=== PATIENT | male | born 1945 | race Caucasian/White ===

== ENCOUNTER 2021-02-06 11:53 | Inpatient (IN) | payer MEDICARE, MEDICAID ==
[2021-02-06] MEDS ORDERED: Dexamethasone 10 MG/ML SDV IVPUSH ONE (12:05)
--- NOTE | 2021-02-06 12:16 | EDM.PDOC ---
ED HPI GENERAL MEDICAL PROBLEM - General Chief Complaint: Respiratory Problem Stated Complaint: SOB Time Seen by Provider: 02/06/21 12:00 Source of Information: Reports: Patient, Family History Limitations: Reports: Respiratory Distress - History of Present Illness INITIAL COMMENTS - FREE TEXT/NARRATIVE: Patient is a 75-year-old male previous smoker presents today for low oxygen. He has a pulse ox at home and went down to the mid 50s. Placed on a nonrebreather is now greater than 95%. His cousins at the bedside and states he is with complaint of shortness of breath for the past few months and his oxygen levels progressively begin lower over the past month. Patient denies any chest pain cough fever chills just a low oxygen. He is also had a weight loss of over 30 pounds this past year. - Related Data Allergies Allergy/AdvReac Type Severity Reaction Status Date / Time No Known Allergies Allergy Verified 02/06/21 12:30 Home Meds: Home Meds Doxazosin Mesylate [Cardura] 4 mg PO DAILY 02/06/21 [History] acetaZOLAMIDE [Acetazolamide] 500 mg PO DAILY 02/06/21 [History] amLODIPine [Norvasc] 10 mg PO DAILY 02/06/21 [History] atorvaSTATin [Lipitor] 10 mg PO BEDTIME 02/06/21 [History] ED ROS GENERAL - Review of Systems Review Of Systems: See Below Constitutional: Reports: No Symptoms HEENT: Reports: No Symptoms Respiratory: Reports: Shortness of Breath Cardiovascular: Reports: No Symptoms Endocrine: Reports: No Symptoms GI/Abdominal: Reports: No Symptoms : Reports: No Symptoms Musculoskeletal: Reports: No Symptoms Skin: Reports: No Symptoms Neurological: Reports: No Symptoms Psychiatric: Reports: No Symptoms Hematologic/Lymphatic: Reports: No Symptoms Immunologic: Reports: No Symptoms ED EXAM, GENERAL - Physical Exam Exam: See Below Exam Limited By: No Limitations General Appearance: Alert, WD/WN, No Apparent Distress Nose: Normal Inspection Throat/Mouth: Normal Inspection Head: Atraumatic, Normocephalic Neck: Normal Inspection Respiratory/Chest: No Respiratory Distress, Lungs Clear, Normal Breath Sounds, No Accessory Muscle Use Cardiovascular: Normal Peripheral Pulses, Regular Rate, Rhythm GI/Abdominal: Normal Bowel Sounds, Soft, Non-Tender Back Exam: Normal Inspection, Full Range of Motion Extremities: Normal Inspection, Normal Range of Motion, Non-Tender Neurological: Alert, Oriented, CN II-XII Intact, Normal Cognition Psychiatric: Normal Affect, Normal Mood Skin Exam: No Rash #1 Interpretation EKG Date: 02/06/21 Time: 12:45 Rhythm: NSR Rate (Beats/Min): 67 ST-T: Normal Course - Vital Signs Last Recorded V/S: Last Vital Signs Temp 97.3 F 02/06/21 11:55 Pulse 66 02/06/21 13:35 Resp 24 H 02/06/21 13:35 BP 118/62 02/06/21 13:35 Pulse Ox 96 02/06/21 13:35 - Orders/Labs/Meds Orders: Active Orders 24 hr Category Date Time Status Admission Status [Patient Status] [ADT] Stat ADT 02/06/21 13:59 Active CULTURE BLOOD [BC] Stat Lab 02/06/21 12:45 Received CULTURE BLOOD [BC] Stat Lab 02/06/21 13:02 Received Azithromycin [Zithromax] 500 mg Med 02/06/21 14:00 Active Sodium Chloride 0.9% [Normal Saline AdvBag] 250 ml IV ONETIME cefTRIAXone [Rocephin in Dextrose,Iso-Osm 1 GM/50 ML] 1 Med 02/06/21 13:56 Active gm Premix Bag 1 bag IV ONETIME Blood Culture x2 Reflex Set [OM.PC] Stat Oth 02/06/21 12:05 Ordered Medication Orders Ceftriaxone Sodium/Dextrose 1 (gm/ Premix) 50 mls @ 100 mls/hr IV ONETIME ONE Stop: 02/06/21 14:25 Azithromycin 500 mg/ Sodium (Chloride) 250 mls @ 250 mls/hr IV ONETIME [facility] Labs: Laboratory Tests 02/06/21 02/06/21 02/06/21 Range/Units 12:05 12:05 12:05 WBC 11.27 H (4.0-11.0) K/uL RBC 4.91 (4.50-5.90) M/uL Hgb 14.9 (13.0-17.0) g/dL Hct 45.5 (38.0-50.0) % MCV 92.7 (80.0-98.0) fL MCH 30.3 (27.0-32.0) pg MCHC 32.7 (31.0-37.0) g/dL RDW Std Deviation 56.0 (28.0-62.0) fl RDW Coeff of Shivani 16 H (11.0-15.0) % Plt Count 236 (150-400) K/uL MPV 10.00 (7.40-12.00) fL Neut % (Auto) 80.7 H (48.0-80.0) % Lymph % (Auto) 8.2 L (16.0-40.0) % [place] % (Auto) 10.5 (0.0-15.0) % Eos % (Auto) 0.3 (0.0-7.0) % Baso % (Auto) 0.3 (0.0-1.5) % Neut # (Auto) 9.1 H (1.4-5.7) K/uL Lymph # (Auto) 0.9 (0.6-2.4) K/uL [place] # (Auto) 1.2 H (0.0-0.8) K/uL Eos # (Auto) 0.0 (0.0-0.7) K/uL Baso # (Auto) 0.0 (0.0-0.1) K/uL Nucleated RBC % 0.0 /100WBC Nucleated RBCs # 0 K/uL Sodium 143 (136-148) mmol/L Potassium 4.3 (3.5-5.1) mmol/L Chloride 107 (98-107) mmol/L Carbon Dioxide 24.5 (21.0-32.0) mmol/L BUN 24 H (7.0-18.0) mg/dL Creatinine 1.1 (0.8-1.3) mg/dL Est Cr Clr Drug Dosing TNP Estimated GFR (MDRD) > 60.0 ml/min Glucose 119 H (74-106) mg/dL Calcium 8.9 (8.5-10.1) mg/dL Phosphorus 3.9 (2.6-4.7) mg/dL Magnesium 2.2 (1.8-2.4) mg/dL Total Bilirubin 0.7 (0.2-1.0) mg/dL AST 16 (15-37) IU/L ALT 15 (14-63) IU/L Alkaline Phosphatase 68 (46-116) U/L Creatine Kinase 79 (26-308) U/L Total Protein 7.5 (6.4-8.2) g/dL Albumin 3.5 (3.4-5.0) g/dL Globulin 4.0 (2.6-4.0) g/dL Albumin/Globulin Ratio 0.9 (0.9-1.6) Lipase 146 (73-393) U/L SARS-CoV-2 RNA (SHEILA) NEGATIVE (NEGATIVE) Meds: Medications Generic Name Dose Route Start Last Admin Trade Name Freq PRN Reason Stop Dose Admin Ceftriaxone Sodium/Dextrose 1 50 mls @ 100 mls/hr 02/06/21 13:56 gm/ Premix IV 02/06/21 14:25 ONETIME ONE Azithromycin 500 mg/ Sodium 250 mls @ 250 mls/hr 02/06/21 14:00 Chloride IV ONETIME JAY Discontinued Medications Generic Name Dose Route Start Last Admin Trade Name Freq PRN Reason Stop Dose Admin Dexamethasone 10 mg 02/06/21 12:05 02/06/21 12:34 Dexamethasone 10 Mg/Ml Sdv IVPUSH 02/06/21 12:06 10 mg ONETIME ONE Administration - Re-Assessments/Exams Free Text/Narrative Re-Assessment/Exam: 02/06/21 14:00 Patient x-ray shows bilateral infiltrates patient is Covid negative we will treat this as a pneumonia. Patient was on a nonrebreather now on nasal cannula still satting 96% patient will be admitted to the hospital to the medical floor Departure - Departure Time of Disposition: 14:01 Disposition: Home, Self-Care 01 Condition: Good Clinical Impression: Hypoxia, Pneumonia - Discharge Information *PRESCRIPTION DRUG MONITORING PROGRAM REVIEWED*: Not Applicable *COPY OF PRESCRIPTION DRUG MONITORING REPORT IN PATIENT [place]: Not Applicable Referrals: Yoshi Bardales MD [Primary Care Provider] - Forms: ED Department Discharge Sepsis Event Note (ED) - Focused Exam Vital Signs: Vital Signs Temp Pulse Resp BP Pulse Ox 02/06/21 13:35 66 24 H 118/62 96 02/06/21 12:05 98 02/06/21 11:55 97.3 F 92 28 H 108/73 54 L - My Orders Last 24 Hours: My Active Orders 02/06/21 12:05 Blood Culture x2 Reflex Set [OM.PC] Stat 02/06/21 12:45 CULTURE BLOOD [BC] Stat 02/06/21 13:02 CULTURE BLOOD [BC] Stat 02/06/21 13:56 cefTRIAXone [Rocephin in Dextrose,Iso-Osm 1 GM/50 ML] 1 gm Premix Bag 1 bag IV ONETIME 02/06/21 13:59 Admission Status [Patient Status] [ADT] Stat 02/06/21 14:00 Azithromycin [Zithromax] 500 mg Sodium Chloride 0.9% [Normal Saline AdvBag] 250 ml IV ONETIME - Assessment/Plan Last 24 Hours: My Active Orders 02/06/21 12:05 Blood Culture x2 Reflex Set [OM.PC] Stat 02/06/21 12:45 CULTURE BLOOD [BC] Stat 02/06/21 13:02 CULTURE BLOOD [BC] Stat 02/06/21 13:56 cefTRIAXone [Rocephin in Dextrose,Iso-Osm 1 GM/50 ML] 1 gm Premix Bag 1 bag IV ONETIME 02/06/21 13:59 Admission Status [Patient Status] [ADT] Stat 02/06/21 14:00 Azithromycin [Zithromax] 500 mg Sodium Chloride 0.9% [Normal Saline AdvBag] 250 ml IV ONETIME Plan: Patient is a 75-year-old male presents today for hypoxia. Patient on a nonrebreather now satting 95% and feels better. Will obtain x-ray labs EKG and Covid swab.
[2021-02-06 12:46] LABS: BLOOD UREA NITROGEN,BUN 24 mg/dL (7.0-18.0); CARBON DIOXIDE,CO2 24.5 mmol/L (21.0-32.0); CHLORIDE,CL 107 mmol/L (98-107); GLUCOSE RANDOM 119 mg/dL (74-106); LIPASE 146 U/L (73-393); POTASSIUM,K 4.3 mmol/L (3.5-5.1); SODIUM,NA 143 mmol/L (136-148)
--- NOTE | 2021-02-06 13:49 | CR ---
INDICATION: Hypoxia. 75-year-old male. TECHNIQUE: Chest radiograph 1 view COMPARISON: None FINDINGS: Cardiovascular and mediastinum: Heart size and mediastinal contours within normal limits. Lungs and pleural spaces: Small bilateral pleural effusions, left greater than right. There are patchy ground-glass and interstitial opacities, localized to the right and left lower lung zones. No definite central vascular congestion. There may be trace fluid in the right minor fissure. Bones and soft tissues: No significant findings. IMPRESSION: 1. Trace bilateral pleural effusions, left greater than right. 2. Patchy pulmonary opacities at the bilateral lung bases, left greater than right. Findings suspicious for bibasilar infiltrates and atelectasis, including COVID-19 viral pneumonitis. Dictated by Esequiel Harvey MD @ 02/06/2021 1:48:06 PM (Electronically Signed)
[2021-02-06] MEDS ORDERED: cefTRIAXone 1 GM in Premix Bag 1 BAG IV ONE (13:56)
[2021-02-06] MEDS ORDERED: Azithromycin 500 MG in Sodium Chloride 0.9% 250 ML IV SCH (14:00)
[2021-02-06] MEDS ORDERED: Albuterol/Ipratropium 3.0-0.5 MG/3 ML Neb Soln ONE (15:07)
[2021-02-06] MEDS ORDERED: Albuterol/Ipratropium 3.0-0.5 MG/3 ML Neb Soln NEB ONE (15:45)
--- NOTE | 2021-02-06 16:48 | PCM.HP.2 ---
H&P History of Present Illness - General Date of Service: 02/06/21 Admit Problem/Dx: Admission Diagnosis/Problem Admission Diagnosis/Problem Hypoxia Source of Information: Family, Provider History Limitations: Reports: Altered Mental Status - History of Present Illness Initial Comments - Free Text/Narative: 02/06/21 75 year old male brought in by visiting cousin with hx of worsening resp symptoms starting 4-5 months ago and becoming severe over past few days . sats checked and in 50-77% range with severe caba and sob noted . he is weak and unable to walk currently and cousin is not sure how long he has been bad. sees Dr Mcintosh but no pulm meds at home and no inhalers or puffers. ex heavy smoker quit 11 years ago . no known cardiac hx but very incomplete. has been covid and flu vaccinated and covid test neg. in e.r. no hx of hypotension known previously . he is losing weight and going downhill in retrospect with 30 lbs weight loss. patient answers yes /no questions and denies pain or chest pains,syncope or vomiting . 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 sats improved with n.c but only to 80s, bipap placed and abg pending. p.e. shows rr 24 ,poor color but not cyanotic currently. cap refil poor 5 sec. lungs diffuse distant wheezes boht lung eid. cor rrr no s3/4 no murmurs. abd bs normal . extremities: 2plus edema bilaterally. responds to name but speech unclear. chest xray diffuse interstitial findings . lab trop neg. covid neg. no influenza done. cbc normal.cmp normal. assess: pneumonia with underlying interstitial findings on xray needs ct scan after stabilization. severe hypoxia and little hx to go on . prob rt heart failure or edema form other causes but nutriton okay by labs and hx. 30 lbs weight loss// no known hx of t.b . plan : sepsis protocol started. rocephin given in e.r but will go with zosyn and vanco. imm against covid and flu by hx. rt heart failure check nt bnp repeat trop and check d dimer for other possible causes . patient is serious and family made aware and to consider intubation if not stabilizing . place jones for accurate i/os . repeat covid screen. boh Onset of Symptoms: Reports: Gradual Duration of Symptoms: Reports: Day(s): Severity: Moderate (co2 80 on nasal canal) Associated Symptoms: Reports: Confusion, Loss of Appetite, Malaise, Shortness of Breath - Related Data Allergies/Adverse Reactions: Allergies Allergy/AdvReac Type Severity Reaction Status Date / Time No Known Allergies Allergy Verified 02/06/21 12:30 Home Medications: Home Meds Doxazosin Mesylate [Cardura] 4 mg PO DAILY 02/06/21 [History] acetaZOLAMIDE [Acetazolamide] 500 mg PO DAILY 02/06/21 [History] amLODIPine [Norvasc] 10 mg PO DAILY 02/06/21 [History] atorvaSTATin [Lipitor] 10 mg PO BEDTIME 02/06/21 [History] Past Medical History HEENT History: Reports: None Cardiovascular History: Reports: High Cholesterol, Hypertension Respiratory History: Reports: None Gastrointestinal History: Reports: None Genitourinary History: Reports: None Musculoskeletal History: Reports: None Neurological History: Reports: None Psychiatric History: Reports: None Endocrine/Metabolic History: Reports: None Insulin Pump Model and Manager Ent: None Hematologic History: Reports: None Immunologic History: Reports: None Oncologic (Cancer) History: Reports: None Dermatologic History: Reports: None - Infectious Disease History Infectious Disease History: Reports: None - Past Surgical History Head Surgeries/Procedures: Reports: None Social & Family History - Tobacco Use Tobacco Use Comment: stop 10days ago - Caffeine Use Caffeine Use: Reports: None - Recreational Drug Use Recreational Drug Use: No H&P Review of Systems - Review of Systems: Review Of Systems: See Below General: Reports: Malaise, Weakness, Decreased Appetite HEENT: Reports: No Symptoms, Other (glaucoma) Pulmonary: Reports: Shortness of Breath Gastrointestinal: Reports: No Symptoms Genitourinary: Reports: No Symptoms Musculoskeletal: Reports: No Symptoms Skin: Reports: No Symptoms Psychiatric: Reports: No Symptoms Neurological: Reports: No Symptoms, Confusion Hematologic/Lymphatic: Reports: No Symptoms Exam - Exam Exam: See Below - Vital Signs Vital Signs: Last Vital Signs Temp 36.2 C 02/06/21 14:19 Pulse 65 02/06/21 14:19 Resp 24 H 02/06/21 14:19 BP 116/61 02/06/21 14:19 Pulse Ox 93 L 02/06/21 14:19 - Exam Quality Assessment: Supplemental Oxygen General: Lethargic, Obtunded HEENT: PERRLA, Hearing Intact, Mucosa Moist & [place], Nares Patent, Normal Nasal Septum, Posterior Pharynx Clear, Conjunctiva Clear, EOMI, EACs Clear, TMs Clear Neck: Supple, Trachea Midline, 2 Lungs: Clear to Auscultation, Normal Respiratory Effort, Decreased Breath Sounds, Wheezing Cardiovascular: Regular Rate, Regular Rhythm GI/Abdominal Exam: Normal Bowel Sounds, Soft, Non-Tender, No Organomegaly, No Distention, No Abnormal Bruit, No Mass, Pelvis Stable (Male) Exam: Normal Inspection Rectal (Males) Exam: Deferred. No: Normal Exam, Normal Rectal Tone, Prostate Normal Back Exam: Normal Inspection, Full Range of Motion, NT Extremities: Other (2 plus edema bilateral no calve tenderness ) - Patient Data Lab Results Last 24 hrs: Laboratory Results - last 24 hr 02/06/21 02/06/21 02/06/21 Range/Units 12:05 12:05 12:05 WBC 11.27 H (4.0-11.0) K/uL RBC 4.91 (4.50-5.90) M/uL Hgb 14.9 (13.0-17.0) g/dL Hct 45.5 (38.0-50.0) % MCV 92.7 (80.0-98.0) fL MCH 30.3 (27.0-32.0) pg MCHC 32.7 (31.0-37.0) g/dL RDW Std Deviation 56.0 (28.0-62.0) fl RDW Coeff of Shivani 16 H (11.0-15.0) % Plt Count 236 (150-400) K/uL MPV 10.00 (7.40-12.00) fL Neut % (Auto) 80.7 H (48.0-80.0) % Lymph % (Auto) 8.2 L (16.0-40.0) % [place] % (Auto) 10.5 (0.0-15.0) % Eos % (Auto) 0.3 (0.0-7.0) % Baso % (Auto) 0.3 (0.0-1.5) % Neut # (Auto) 9.1 H (1.4-5.7) K/uL Lymph # (Auto) 0.9 (0.6-2.4) K/uL [place] # (Auto) 1.2 H (0.0-0.8) K/uL Eos # (Auto) 0.0 (0.0-0.7) K/uL Baso # (Auto) 0.0 (0.0-0.1) K/uL Nucleated RBC % 0.0 /100WBC Nucleated RBCs # 0 K/uL Sodium 143 (136-148) mmol/L Potassium 4.3 (3.5-5.1) mmol/L Chloride 107 (98-107) mmol/L Carbon Dioxide 24.5 (21.0-32.0) mmol/L BUN 24 H (7.0-18.0) mg/dL Creatinine 1.1 (0.8-1.3) mg/dL Est Cr Clr Drug Dosing TNP Estimated GFR (MDRD) > 60.0 ml/min Glucose 119 H (74-106) mg/dL Calcium 8.9 (8.5-10.1) mg/dL Phosphorus 3.9 (2.6-4.7) mg/dL Magnesium 2.2 (1.8-2.4) mg/dL Total Bilirubin 0.7 (0.2-1.0) mg/dL AST 16 (15-37) IU/L ALT 15 (14-63) IU/L Alkaline Phosphatase 68 (46-116) U/L Creatine Kinase 79 (26-308) U/L B-Natriuretic Peptide (<100) PG/ML Total Protein 7.5 (6.4-8.2) g/dL Albumin 3.5 (3.4-5.0) g/dL Globulin 4.0 (2.6-4.0) g/dL Albumin/Globulin Ratio 0.9 (0.9-1.6) Lipase 146 (73-393) U/L SARS-CoV-2 RNA (SHEILA) NEGATIVE (NEGATIVE) 02/06/21 Range/Units 12:05 WBC (4.0-11.0) K/uL RBC (4.50-5.90) M/uL Hgb (13.0-17.0) g/dL Hct (38.0-50.0) % MCV (80.0-98.0) fL MCH (27.0-32.0) pg MCHC (31.0-37.0) g/dL RDW Std Deviation (28.0-62.0) fl RDW Coeff of Shivani (11.0-15.0) % Plt Count (150-400) K/uL MPV (7.40-12.00) fL Neut % (Auto) (48.0-80.0) % Lymph % (Auto) (16.0-40.0) % [place] % (Auto) (0.0-15.0) % Eos % (Auto) (0.0-7.0) % Baso % (Auto) (0.0-1.5) % Neut # (Auto) (1.4-5.7) K/uL Lymph # (Auto) (0.6-2.4) K/uL [place] # (Auto) (0.0-0.8) K/uL Eos # (Auto) (0.0-0.7) K/uL Baso # (Auto) (0.0-0.1) K/uL Nucleated RBC % /100WBC Nucleated RBCs # K/uL Sodium (136-148) mmol/L Potassium (3.5-5.1) mmol/L Chloride (98-107) mmol/L Carbon Dioxide (21.0-32.0) mmol/L BUN (7.0-18.0) mg/dL Creatinine (0.8-1.3) mg/dL Est Cr Clr Drug Dosing Estimated GFR (MDRD) ml/min Glucose (74-106) mg/dL Calcium (8.5-10.1) mg/dL Phosphorus (2.6-4.7) mg/dL Magnesium (1.8-2.4) mg/dL Total Bilirubin (0.2-1.0) mg/dL AST (15-37) IU/L ALT (14-63) IU/L Alkaline Phosphatase (46-116) U/L Creatine Kinase (26-308) U/L B-Natriuretic Peptide 439 H (<100) PG/ML Total Protein (6.4-8.2) g/dL Albumin (3.4-5.0) g/dL Globulin (2.6-4.0) g/dL Albumin/Globulin Ratio (0.9-1.6) Lipase (73-393) U/L SARS-CoV-2 RNA (SHEILA) (NEGATIVE) Result Diagrams: 02/06/21 12:05 02/06/21 12:05 Sepsis Event Note - Evaluation Sepsis Screening Result: No Definite Risk Current Stage of Sepsis: Sepsis Possible Source of Sepsis: Pulmonary - Focused Exam Sepsis Event Note Statement: Focused Sepsis Exam Completed Vital Signs: Vital Signs Temp Pulse Resp BP Pulse Ox 02/06/21 14:19 36.2 C 65 24 H 116/61 93 L 02/06/21 13:35 66 24 H 118/62 96 02/06/21 12:05 98 02/06/21 11:55 36.3 C 92 28 H 108/73 54 L Respiratory Effort Without Exertion: Hyperpnea, Shallow Heart Sounds: Distant Capillary Refill, Detail: Greater than (>) 2 Seconds Pulse Description: 2+ Normal Skin Exam (Focused Sepsis): Normal Turgor Date Exam was Performed: 02/06/21 Time Exam was Performed: 15:50 - Bedside Monitoring CVP Measures: Less than 8 Bedside Ultrasound Performed: No Fluid Bolus Goal: not yet. Date Bedside Monitoring was Performed: 02/06/21 Time Bedside Monitoring was Performed: 16:54 - Problem List (1) CHF (congestive heart failure), NYHA class III SNOMED Code(s): 659906959, 790115820 ICD Code: I50.9 - HEART FAILURE, UNSPECIFIED Status: Acute Priority: Medium Current Visit: Yes Onset Date: ~02/06/21 Qualifiers: Congestive heart failure type: systolic Congestive heart failure chronicity: acute on chronic Qualified Code(s): I50.23 - Acute on chronic systolic (congestive) heart failure Problem List Initiated/Reviewed/Updated: Yes Orders Last 24hrs: Active Orders 24 hr Category Date Time Status Admission Status [Patient Status] [ADT] Stat ADT 02/06/21 13:59 Active RT Aerosol Therapy [RC] ASDIRECTED Care 02/06/21 15:46 Active Head wo Cont [CT] Stat Exams 02/06/21 16:06 Taken BLOOD GAS ARTERIAL [BG] Stat Lab 02/06/21 16:06 Ordered CULTURE BLOOD [BC] Stat Lab 02/06/21 12:45 Received CULTURE BLOOD [BC] Stat Lab 02/06/21 13:02 Received Azithromycin [Zithromax] 500 mg Med 02/06/21 14:00 Active Sodium Chloride 0.9% [Normal Saline AdvBag] 250 ml IV ONETIME Blood Culture x2 Reflex Set [OM.PC] Stat Oth 02/06/21 12:05 Ordered Medication Orders Azithromycin 500 mg/ Sodium (Chloride) 250 mls @ 250 mls/hr IV ONETIME JAY Assessment/Plan Comment:: 02/06/21 75 year old male brought in by visiting cousin with hx of worsening resp symptoms starting 4-5 months ago and becoming severe over past few days . sats checked and in 50-77% range with severe caba and sob noted . he is weak and unable to walk currently and cousin is not sure how long he has been bad. sees Dr Mcintosh but no pulm meds at home and no inhalers or puffers. ex heavy smoker quit 11 years ago . no known cardiac hx but very incomplete. has been covid and flu vaccinated and covid test neg. in e.r. no hx of hypotension known previously . he is losing weight and going downhill in retrospect with 30 lbs w eight loss. patient answers yes /no questions and denies pain or chest pains,syncope or vomiting . 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 sats improved with n.c but only to 80s, bipap placed and abg pending. p.e. shows rr 24 ,poor color but not cyanotic currently. cap refil poor 5 sec. lungs diffuse distant wheezes boht lung eid. cor rrr no s3/4 no murmurs. abd bs normal . extremities: 2plus edema bilaterally. responds to name but speech unclear. chest xray diffuse interstitial findings . lab trop neg. covid neg. no influenza done. cbc normal.cmp normal. assess: pneumonia with underlying interstitial findings on xray needs ct scan after stabilization. severe hypoxia and little hx to go on . prob rt heart failure or edema form other causes but nutriton okay by labs and hx. 30 lbs weight loss// no known hx of t.b . plan : sepsis protocol started. rocephin given in e.r but will go with zosyn and vanco. imm against covid and flu by hx. rt heart failure check nt bnp repeat trop and check d dimer for other possible causes . patient is serious and family made aware and to consider intubation if not stabilizing . place jones for accurate i/os . repeat covid screen. boh - Mortality Measure Prognosis:: Poor
--- NOTE | 2021-02-06 17:19 | CT ---
INDICATION: Altered mental status, on BiPAP. COMPARISON: None. TECHNIQUE: CT of the head without IV contrast. Coronal and sagittal reconstructions are provided. FINDINGS: No intracranial hemorrhage, mass effect, or evidence of acute infarct. No midline shift. No abnormal extra-axial fluid collections. Normal caliber ventricular system. Mild patchy low attenuation within the white matter likely due to chronic small vessel ischemic disease. Orbits and extraocular muscles are symmetric. The paranasal sinuses and mastoid air cells are clear. No acute fracture identified. Soft tissues are unremarkable. IMPRESSION: : 1. No acute intracranial findings. 2. Mild chronic small vessel ischemic disease. Please note that all CT scans at this facility use dose modulation, iterative reconstruction, and/or weight-based dosing when appropriate to reduce radiation dose to as low as reasonably achievable. Dictated by Christy Peterson MD @ 02/06/2021 5:17:43 PM (Electronically Signed)
[2021-02-06] MEDS: VANCOmycin 1.5 GM/300 ML 1.5 GM in Premix Bag 1 BAG IV SCH (18:04)
[2021-02-06] MEDS: LORazepam 2 MG/ML SDV IVPUSH PRN ×2 (18:05→22:48)
[2021-02-06] MEDS: Ampicillin/Sulbactam Na 3 GM in Sodium Chloride 0.9% 100 ML IV SCH (18:05)
--- NOTE | 2021-02-06 21:35 | PCM.PR.CLI ---
Central Line Insertion - Central Line Insertion Site: internal jugular (R) Prep: CDC/MBT Guidelines, Sterile Drapes, Chlorhexidine Lumen: triple Gauge: 7Fr Local Anesthesia - Lidocaine (Xylocaine): 0.5% Plain Local Anesthetic Volume: 1cc Ultrasound guided: Yes CL Complications: No Secured with suture: Yes Post placement confirmation: CXR, all ports aspirated, all ports flushed CXR post-procedure: no pneumothorax, no hemothorax Dressing applied: by provider, chlorhexidine disc used, op-site dressing
[2021-02-06] MEDS: Enoxaparin 40 MG/0.4 ML Syringe SUBCUT SCH (21:54)
--- NOTE | 2021-02-06 22:05 | CR ---
INDICATION: Central line confirmation. TECHNIQUE: Chest 1 view. COMPARISON: Chest radiograph 02/06/2021. FINDINGS: Placement of a right IJ CVC with tip in the upper SVC. This could be advanced approximately 11 cm. Stable small bilateral pleural effusions and bibasilar atelectasis. Increased patchy and interstitial opacities in the lower lungs bilaterally. No pneumothorax. Normal heart size. The bones are unremarkable. IMPRESSION: 1. Right IJ CVC with tip in the upper SVC. This could be advanced approximately 11 cm. 2. Stable small bilateral pleural effusions. 3. Increased patchy and interstitial opacities in the lower lungs bilaterally. Dictated by Christy Peterson MD @ 02/06/2021 10:04:27 PM (Electronically Signed)
--- NOTE | 2021-02-06 22:39 | PCM.SN.2 ---
- Free Text/Narrative Note: 02/06/21 doing some what poorer overall , b.p decreased but responded to stimulation with central line placment . huypoxia severe with sats lower 90s and no air movement. confusion continues but then he started improving around 9 oclock and sats now 90-92 repeat abg still shows co2 69 but clinically a little better. on zosyn// vanco . discussed with sister , Neda closest relative . who has medical poa and changed code status to no cpr and no intubation but to be aggressive trying to reverse course. boh Time Documentation - Time Based Documentation Total Time Spent on the Date of the Encounter (Minutes): 90 Time Includes the Following: Time Spent [id number] with the Patient, Communication with Other Health [facility], Counseling/Education, Eletronic Documentation Time Excludes: Clinical Staff Time - Counseling Documentation Non Time Based Counseled: Patient, Family Counseling Topic(s): Diagnostic Results, Prognosis, Patient and Family Educat, Impressions, Risks and Benefits of Tx Options - Encounter Timing Total Time of Encounter (Minutes): 90
--- NOTE | 2021-02-06 23:14 | PN ---
THC Physician - Brief Progress RndsZXHHJOQIU59/26/2021 22:38[facility] khadra TonyaROSA MARIA - JOSHUA (CHIP) - [facility]N [facility] ELSYChristen of Service 02/06/2021 22:38HPI/Events of No te Brief eICU Admit [id number] yom with hx of ongoing SOBPresents with Acute resp failureO/E Seen on ca meraVSS, NADDVT Prophylaxis: lovenoxGI Prophylaxis: n/aIssuesAcute Hypercapneic RespiratoryPNA ? ILD / COPD baselineOn BiPAPCheck ABGOn abxPt is DNR / DNICase reviewed with bedside teamCall with bhavya Neri followInterventions Major-Respiratory failure - evaluation and management
[2021-02-07] MEDS: Ampicillin/Sulbactam Na 3 GM in Sodium Chloride 0.9% 100 ML IV SCH ×3 (02:05→17:53)
[2021-02-07] MEDS: Albuterol/Ipratropium 3.0-0.5 MG/3 ML Neb Soln NEB PRN (06:24)
[2021-02-07 07:48] LABS: BLOOD UREA NITROGEN,BUN 29 mg/dL (7.0-18.0); CARBON DIOXIDE,CO2 24.2 mmol/L (21.0-32.0); CHLORIDE,CL 109 mmol/L (98-107); GLUCOSE RANDOM 124 mg/dL (74-106); SODIUM,NA 143 mmol/L (136-148)
[2021-02-07] MEDS: Enoxaparin 40 MG/0.4 ML Syringe SUBCUT SCH ×2 (09:31→21:27)
[2021-02-07] MEDS: Furosemide 20 MG/2 ML VIAL IVPUSH SCH (13:00)
--- NOTE | 2021-02-07 13:12 | PCM.PN ---
- General Info Date of Service: 02/07/21 Admission Dx/Problem (Free Text): Admission Diagnosis/Problem Admission Diagnosis/Problem Hypoxia/chf/pneumonia Subjective Update: 02/07/21 afebrile /vss/ stable night with improved resp status on bipap// increased peep 14 and fio2 at 70 % / rate 20 min. improved tidal volume 650/ rr 20-32. see abg results 1 and 2. sleeping and ao x2 not answering questions but responds to name . lungs : prolonged wheezes but good air movement . very distant but better ( than yest.) cor. rrr abd benign. neuro : joshi . responds to [pain and voice. lab repeat inf/covid/rsv screen pending. . cbc elavated 17 . hgn dropped mildly . 14.6 plat good. chest xray: small bilateral effusions a with chf and vasc markings though out lung eid. repeat trop pending. telemetry unifcal pvcs seen occasionally . assess: chf with pulm edema acute on chronic suspected. rt sided findings most prominant with pulm edema nd bilatteral pleural effusions. hx of chronic symptoms and copd/emphesema likely . rule out covid neg and immunized for covid and flu. improved with high dose steriods and nebs and bipap with 70% fio2. co2 retention seen likely acute coupled with metabolic acidosis and -b.e. of 8 initially . repeat abg as day goes on . needs echo and repeat trop and bnp . hypotension: better. has good urine output and given lasix this am . bnp 1440. possible pneumonia but not called by radiology . on .s anti biotics . elevated blood sugars on steroids and monitoring for now check a1c . family updated and code status changed to no code and no intubation. plan cont same and get ct scan lungs if stable for ct scan (rule out p.e. and evaluate pneumoia and chf.) boh Functional Status: Reports: Pain Controlled, Urinating - Review of Systems General: Reports: No Symptoms, Fatigue HEENT: Reports: No Symptoms Pulmonary: Reports: No Symptoms, Shortness of Breath, Wheezing Cardiovascular: Reports: No Symptoms, Dyspnea on Exertion, Edema Gastrointestinal: Reports: No Symptoms Genitourinary: Reports: No Symptoms Musculoskeletal: Reports: No Symptoms Skin: Reports: No Symptoms Neurological: Reports: No Symptoms Psychiatric: Reports: No Symptoms, Confusion - Patient Data Vitals - Most Recent: Last Vital Signs Temp 36.5 C 02/07/21 04:00 Pulse 67 02/06/21 19:00 Resp 12 02/07/21 06:58 BP 98/49 L 02/07/21 06:58 Pulse Ox 95 02/07/21 06:58 Weight - Most Recent: 88.2 kg I&O - Last 24 Hours: Intake & Output 02/06/21 02/07/21 02/07/21 23:59 07:59 15:59 Intake Total 10 Output Total 650 Balance -640 Imaging Impressions - Last 24 Hours: chf and emphesema and bilateral pleural effusions. Lab Results Last 24 Hours: Laboratory Results - last 24 hr 02/06/21 02/06/21 02/06/21 Range/Units 12:05 12:05 12:05 WBC (4.0-11.0) K/uL RBC (4.50-5.90) M/uL Hgb (13.0-17.0) g/dL Hct (38.0-50.0) % MCV (80.0-98.0) fL MCH (27.0-32.0) pg MCHC (31.0-37.0) g/dL RDW Std Deviation (28.0-62.0) fl RDW Coeff of Shivani (11.0-15.0) % Plt Count (150-400) K/uL MPV (7.40-12.00) fL Neut % (Auto) (48.0-80.0) % Lymph % (Auto) (16.0-40.0) % [place] % (Auto) (0.0-15.0) % Eos % (Auto) (0.0-7.0) % Baso % (Auto) (0.0-1.5) % Neut # (Auto) (1.4-5.7) K/uL Lymph # (Auto) (0.6-2.4) K/uL [place] # (Auto) (0.0-0.8) K/uL Eos # (Auto) (0.0-0.7) K/uL Baso # (Auto) (0.0-0.1) K/uL Nucleated RBC % /100WBC Nucleated RBCs # K/uL D-Dimer, Quantitative (0.0-0.50) mg/L FEU ABG pH (7.35-7.45) ABG pCO2 (35-45) mmHG ABG pO2 (80-105) mmHG ABG HCO3 (22-26) mEq/L ABG Total CO2 (23-27) mmol/L ABG Base Excess (-2.0-3.0) Sodium 143 (136-148) mmol/L Potassium 4.3 (3.5-5.1) mmol/L Chloride 107 (98-107) mmol/L Carbon Dioxide 24.5 (21.0-32.0) mmol/L BUN 24 H (7.0-18.0) mg/dL Creatinine 1.1 (0.8-1.3) mg/dL Est Cr Clr Drug Dosing TNP Estimated GFR (MDRD) > 60.0 ml/min Glucose 119 H (74-106) mg/dL Lactic Acid (0.4-2.0) mmol/L Calcium 8.9 (8.5-10.1) mg/dL Phosphorus 3.9 (2.6-4.7) mg/dL Magnesium 2.2 (1.8-2.4) mg/dL Total Bilirubin 0.7 (0.2-1.0) mg/dL AST 16 (15-37) IU/L ALT 15 (14-63) IU/L Alkaline Phosphatase 68 (46-116) U/L Creatine Kinase 79 (26-308) U/L C-Reactive Protein (0.00-0.90) mg/dL B-Natriuretic Peptide 439 H (<100) PG/ML Total Protein 7.5 (6.4-8.2) g/dL Albumin 3.5 (3.4-5.0) g/dL Globulin 4.0 (2.6-4.0) g/dL Albumin/Globulin Ratio 0.9 (0.9-1.6) Lipase 146 (73-393) U/L Urine Color Urine Appearance Urine pH (5.0-8.0) Ur Specific Roxana (1.001-1.035) Urine Protein (NEGATIVE) mg/dL Urine Glucose (UA) (NEGATIVE) mg/dL Urine Ketones (NEGATIVE) mg/dL Urine Occult Blood (NEGATIVE) Urine Nitrite (NEGATIVE) Urine Bilirubin (NEGATIVE) Urine Urobilinogen (<2.0) EU/dL Ur Leukocyte Esterase (NEGATIVE) SARS-CoV-2 RNA (SHEILA) NEGATIVE (NEGATIVE) 02/06/21 02/06/21 02/06/21 Range/Units 16:40 16:50 17:40 WBC (4.0-11.0) K/uL RBC (4.50-5.90) M/uL Hgb (13.0-17.0) g/dL Hct (38.0-50.0) % MCV (80.0-98.0) fL MCH (27.0-32.0) pg MCHC (31.0-37.0) g/dL RDW Std Deviation (28.0-62.0) fl RDW Coeff of Shivani (11.0-15.0) % Plt Count (150-400) K/uL MPV (7.40-12.00) fL Neut % (Auto) (48.0-80.0) % Lymph % (Auto) (16.0-40.0) % [place] % (Auto) (0.0-15.0) % Eos % (Auto) (0.0-7.0) % Baso % (Auto) (0.0-1.5) % Neut # (Auto) (1.4-5.7) K/uL Lymph # (Auto) (0.6-2.4) K/uL [place] # (Auto) (0.0-0.8) K/uL Eos # (Auto) (0.0-0.7) K/uL Baso # (Auto) (0.0-0.1) K/uL Nucleated RBC % /100WBC Nucleated RBCs # K/uL D-Dimer, Quantitative (0.0-0.50) mg/L FEU ABG pH 7.03 L* (7.35-7.45) ABG pCO2 88 H (35-45) mmHG ABG pO2 104 (80-105) mmHG ABG HCO3 23 (22-26) mEq/L ABG Total CO2 22.4 L (23-27) mmol/L ABG Base Excess -10.1 L (-2.0-3.0) Sodium (136-148) mmol/L Potassium (3.5-5.1) mmol/L Chloride (98-107) mmol/L Carbon Dioxide (21.0-32.0) mmol/L BUN (7.0-18.0) mg/dL Creatinine (0.8-1.3) mg/dL Est Cr Clr Drug Dosing Estimated GFR (MDRD) ml/min Glucose (74-106) mg/dL Lactic Acid 1.4 (0.4-2.0) mmol/L Calcium (8.5-10.1) mg/dL Phosphorus (2.6-4.7) mg/dL Magnesium (1.8-2.4) mg/dL Total Bilirubin (0.2-1.0) mg/dL AST (15-37) IU/L ALT (14-63) IU/L Alkaline Phosphatase (46-116) U/L Creatine Kinase (26-308) U/L C-Reactive Protein (0.00-0.90) mg/dL B-Natriuretic Peptide (<100) PG/ML Total Protein (6.4-8.2) g/dL Albumin (3.4-5.0) g/dL Globulin (2.6-4.0) g/dL Albumin/Globulin Ratio (0.9-1.6) Lipase (73-393) U/L Urine Color YELLOW Urine Appearance CLEAR Urine pH 6.0 (5.0-8.0) Ur Specific Roxana >= 1.030 (1.001-1.035) Urine Protein TRACE H (NEGATIVE) mg/dL Urine Glucose (UA) NEGATIVE (NEGATIVE) mg/dL Urine Ketones TRACE H (NEGATIVE) mg/dL Urine Occult Blood NEGATIVE (NEGATIVE) Urine Nitrite NEGATIVE (NEGATIVE) Urine Bilirubin NEGATIVE (NEGATIVE) Urine Urobilinogen 1.0 (<2.0) EU/dL Ur Leukocyte Esterase NEGATIVE (NEGATIVE) SARS-CoV-2 RNA (SHEILA) (NEGATIVE) 02/06/21 02/07/21 02/07/21 Range/Units 18:50 00:05 05:28 WBC (4.0-11.0) K/uL RBC (4.50-5.90) M/uL Hgb (13.0-17.0) g/dL Hct (38.0-50.0) % MCV (80.0-98.0) fL MCH (27.0-32.0) pg MCHC (31.0-37.0) g/dL RDW Std Deviation (28.0-62.0) fl RDW Coeff of Shivani (11.0-15.0) % Plt Count (150-400) K/uL MPV (7.40-12.00) fL Neut % (Auto) (48.0-80.0) % Lymph % (Auto) (16.0-40.0) % [place] % (Auto) (0.0-15.0) % Eos % (Auto) (0.0-7.0) % Baso % (Auto) (0.0-1.5) % Neut # (Auto) (1.4-5.7) K/uL Lymph # (Auto) (0.6-2.4) K/uL [place] # (Auto) (0.0-0.8) K/uL Eos # (Auto) (0.0-0.7) K/uL Baso # (Auto) (0.0-0.1) K/uL Nucleated RBC % /100WBC Nucleated RBCs # K/uL D-Dimer, Quantitative 4.26 H (0.0-0.50) mg/L FEU ABG pH 7.12 L* 7.21 L (7.35-7.45) ABG pCO2 69 H 53 H (35-45) mmHG ABG pO2 74 L 62 L (80-105) mmHG ABG HCO3 22 21 L (22-26) mEq/L ABG Total CO2 21.2 L 19.8 L (23-27) mmol/L ABG Base Excess -8.5 L -7.1 L (-2.0-3.0) Sodium (136-148) mmol/L Potassium (3.5-5.1) mmol/L Chloride (98-107) mmol/L Carbon Dioxide (21.0-32.0) mmol/L BUN (7.0-18.0) mg/dL Creatinine (0.8-1.3) mg/dL Est Cr Clr Drug Dosing Estimated GFR (MDRD) ml/min Glucose (74-106) mg/dL Lactic Acid (0.4-2.0) mmol/L Calcium (8.5-10.1) mg/dL Phosphorus (2.6-4.7) mg/dL Magnesium (1.8-2.4) mg/dL Total Bilirubin (0.2-1.0) mg/dL AST (15-37) IU/L ALT (14-63) IU/L Alkaline Phosphatase (46-116) U/L Creatine Kinase (26-308) U/L C-Reactive Protein (0.00-0.90) mg/dL B-Natriuretic Peptide (<100) PG/ML Total Protein (6.4-8.2) g/dL Albumin (3.4-5.0) g/dL Globulin (2.6-4.0) g/dL Albumin/Globulin Ratio (0.9-1.6) Lipase (73-393) U/L Urine Color Urine Appearance Urine pH (5.0-8.0) Ur Specific Roxana (1.001-1.035) Urine Protein (NEGATIVE) mg/dL Urine Glucose (UA) (NEGATIVE) mg/dL Urine Ketones (NEGATIVE) mg/dL Urine Occult Blood (NEGATIVE) Urine Nitrite (NEGATIVE) Urine Bilirubin (NEGATIVE) Urine Urobilinogen (<2.0) EU/dL Ur Leukocyte Esterase (NEGATIVE) SARS-CoV-2 RNA (SHEILA) (NEGATIVE) 02/07/21 02/07/21 Range/Units 05:28 05:28 WBC 15.58 H (4.0-11.0) K/uL RBC 4.56 (4.50-5.90) M/uL Hgb 13.6 (13.0-17.0) g/dL Hct 43.3 (38.0-50.0) % MCV 95.0 (80.0-98.0) fL MCH 29.8 (27.0-32.0) pg MCHC 31.4 (31.0-37.0) g/dL RDW Std Deviation 56.9 (28.0-62.0) fl RDW Coeff of Shivani 17 H (11.0-15.0) % Plt Count 209 (150-400) K/uL MPV 10.60 (7.40-12.00) fL Neut % (Auto) 94.1 H (48.0-80.0) % Lymph % (Auto) 2.0 L (16.0-40.0) % [place] % (Auto) 3.8 (0.0-15.0) % Eos % (Auto) 0.0 (0.0-7.0) % Baso % (Auto) 0.1 (0.0-1.5) % Neut # (Auto) 14.7 H (1.4-5.7) K/uL Lymph # (Auto) 0.3 L (0.6-2.4) K/uL [place] # (Auto) 0.6 (0.0-0.8) K/uL Eos # (Auto) 0.0 (0.0-0.7) K/uL Baso # (Auto) 0.0 (0.0-0.1) K/uL Nucleated RBC % 0.0 /100WBC Nucleated RBCs # 0 K/uL D-Dimer, Quantitative (0.0-0.50) mg/L FEU ABG pH (7.35-7.45) ABG pCO2 (35-45) mmHG ABG pO2 (80-105) mmHG ABG HCO3 (22-26) mEq/L ABG Total CO2 (23-27) mmol/L ABG Base Excess (-2.0-3.0) Sodium 143 (136-148) mmol/L Potassium 4.0 (3.5-5.1) mmol/L Chloride 109 H (98-107) mmol/L Carbon Dioxide 24.2 (21.0-32.0) mmol/L BUN 29 H (7.0-18.0) mg/dL Creatinine 1.0 (0.8-1.3) mg/dL Est Cr Clr Drug Dosing 63.88 Estimated GFR (MDRD) > 60.0 ml/min Glucose 124 H (74-106) mg/dL Lactic Acid (0.4-2.0) mmol/L Calcium 7.6 L (8.5-10.1) mg/dL Phosphorus (2.6-4.7) mg/dL Magnesium (1.8-2.4) mg/dL Total Bilirubin 0.4 (0.2-1.0) mg/dL AST 12 L (15-37) IU/L ALT 14 (14-63) IU/L Alkaline Phosphatase 55 (46-116) U/L Creatine Kinase (26-308) U/L C-Reactive Protein <0.20 (0.00-0.90) mg/dL B-Natriuretic Peptide (<100) PG/ML Total Protein 6.4 (6.4-8.2) g/dL Albumin 2.9 L (3.4-5.0) g/dL Globulin 3.5 (2.6-4.0) g/dL Albumin/Globulin Ratio 0.8 L (0.9-1.6) Lipase (73-393) U/L Urine Color Urine Appearance Urine pH (5.0-8.0) Ur Specific Roxana (1.001-1.035) Urine Protein (NEGATIVE) mg/dL Urine Glucose (UA) (NEGATIVE) mg/dL Urine Ketones (NEGATIVE) mg/dL Urine Occult Blood (NEGATIVE) Urine Nitrite (NEGATIVE) Urine Bilirubin (NEGATIVE) Urine Urobilinogen (<2.0) EU/dL Ur Leukocyte Esterase (NEGATIVE) SARS-CoV-2 RNA (SHEILA) (NEGATIVE) Med Orders - Current: Current Medications Albuterol/Ipratropium (Albuterol/Ipratropium 3.0-0.5 Mg/3 Ml Neb Soln) 3 ml NEB Q4HRRT PRN PRN Reason: Shortness of Breath Last Admin: 02/07/21 06:24 Dose: 3 ml Documented by: Enoxaparin Sodium (Enoxaparin 40 Mg/0.4 Ml Syringe) 40 mg SUBCUT Q12HR JAY Last Admin: 02/07/21 09:31 Dose: 40 mg Documented by: Furosemide (Furosemide 40 Mg/4 Ml Vial) 20 mg IVPUSH DAILY [facility] Azithromycin 500 mg/ Sodium (Chloride) 250 mls @ 250 mls/hr IV ONETIME JAY Ampicillin Sodium/Sulbactam (Sodium 3 gm/ Sodium Chloride) 100 mls @ 200 mls/hr IV Q8H [facility] Last Admin: 02/07/21 09:31 Dose: 200 mls/hr Documented by: Vancomycin HCl 1.5 gm/ Premix 300 mls @ 200 mls/hr IV Q24H [facility] Last Admin: 02/06/21 18:04 Dose: 200 mls/hr Documented by: Norepinephrine Bitartrate (Norepinephr-0.9% Nacl 4 Mg/250) 4 mg in 250 mls @ 7.5 mls/hr IV TITRATE JAY; Protocol Azithromycin 500 mg/ Sodium (Chloride) 250 mls @ 250 mls/hr IV Q24H [facility] Stop: 02/10/21 17:59 Lorazepam (Lorazepam 2 Mg/Ml Sdv) 2 mg IVPUSH Q2H PRN PRN Reason: Agitation Last Admin: 02/06/21 22:48 Dose: 2 mg Documented by: Vancomycin HCl (Pharmacy To Dose - Vancomycin) 1 dose .XX ASDIRECTED JAY Discontinued Medications Albuterol/Ipratropium (Albuterol/Ipratropium 3.0-0.5 Mg/3 Ml Neb Soln) Confirm Administered Dose 3 ml .ROUTE .STK-MED ONE Stop: 02/06/21 15:08 Last Admin: 02/06/21 15:47 Dose: Not Given Documented by: Albuterol/Ipratropium (Albuterol/Ipratropium 3.0-0.5 Mg/3 Ml Neb Soln) 3 ml NEB ONETIME ONE Stop: 02/06/21 15:46 Last Admin: 02/06/21 15:47 Dose: 3 ml Documented by: Dexamethasone (Dexamethasone 10 Mg/Ml Sdv) 10 mg IVPUSH ONETIME ONE Stop: 02/06/21 12:06 Last Admin: 02/06/21 12:34 Dose: 10 mg Documented by: Ceftriaxone Sodium/Dextrose 1 (gm/ Premix) 50 mls @ 100 mls/hr IV ONETIME ONE Stop: 02/06/21 14:25 Last Admin: 02/06/21 14:18 Dose: 100 mls/hr Documented by: - Exam Quality Assessment: Supplemental Oxygen, Central Line/PICC, DVT Prophylaxis Central Line Total Time: 0Days 7Hours Urinary Catheter Total Time: 0Days 11Hours General: Alert, Oriented HEENT: Pupils Equal, Pupils Reactive, EOMI, Mucous Membr. Moist/[place] Neck: Supple Lungs: Clear to Auscultation, Decreased Breath Sounds, Wheezing. No: Normal Respiratory Effort Cardiovascular: Regular Rate, Regular Rhythm, Tachycardia GI/Abdominal Exam: Normal Bowel Sounds, Soft, Non-Tender, No Organomegaly, No Distention, No Abnormal Bruit, No Mass, Pelvis Stable (Male) Exam: No Hernia, Normal Inspection, Normal Prostate, Circumcised Back Exam: Normal Inspection, Full Range of Motion Extremities: Normal Inspection, Normal Range of Motion, Non-Tender, No Pedal Edema, Normal Capillary Refill Skin: Warm, Dry, Intact Wound/Incisions: Healing Well Neurological: No New Focal Deficit Psy/Mental Status: Alert, Normal Affect, Normal Mood - Patient Data Lab Results Last 24 hrs: Laboratory Results - last 24 hr 02/06/21 02/06/21 02/06/21 Range/Units 12:05 12:05 12:05 WBC (4.0-11.0) K/uL RBC (4.50-5.90) M/uL Hgb (13.0-17.0) g/dL Hct (38.0-50.0) % MCV (80.0-98.0) fL MCH (27.0-32.0) pg MCHC (31.0-37.0) g/dL RDW Std Deviation (28.0-62.0) fl RDW Coeff of Shivani (11.0-15.0) % Plt Count (150-400) K/uL MPV (7.40-12.00) fL Neut % (Auto) (48.0-80.0) % Lymph % (Auto) (16.0-40.0) % [place] % (Auto) (0.0-15.0) % Eos % (Auto) (0.0-7.0) % Baso % (Auto) (0.0-1.5) % Neut # (Auto) (1.4-5.7) K/uL Lymph # (Auto) (0.6-2.4) K/uL [place] # (Auto) (0.0-0.8) K/uL Eos # (Auto) (0.0-0.7) K/uL Baso # (Auto) (0.0-0.1) K/uL Nucleated RBC % /100WBC Nucleated RBCs # K/uL D-Dimer, Quantitative (0.0-0.50) mg/L FEU ABG pH (7.35-7.45) ABG pCO2 (35-45) mmHG ABG pO2 (80-105) mmHG ABG HCO3 (22-26) mEq/L ABG Total CO2 (23-27) mmol/L ABG Base Excess (-2.0-3.0) Sodium 143 (136-148) mmol/L Potassium 4.3 (3.5-5.1) mmol/L Chloride 107 (98-107) mmol/L Carbon Dioxide 24.5 (21.0-32.0) mmol/L BUN 24 H (7.0-18.0) mg/dL Creatinine 1.1 (0.8-1.3) mg/dL Est Cr Clr Drug Dosing TNP Estimated GFR (MDRD) > 60.0 ml/min Glucose 119 H (74-106) mg/dL Lactic Acid (0.4-2.0) mmol/L Calcium 8.9 (8.5-10.1) mg/dL Phosphorus 3.9 (2.6-4.7) mg/dL Magnesium 2.2 (1.8-2.4) mg/dL Total Bilirubin 0.7 (0.2-1.0) mg/dL AST 16 (15-37) IU/L ALT 15 (14-63) IU/L Alkaline Phosphatase 68 (46-116) U/L Creatine Kinase 79 (26-308) U/L C-Reactive Protein (0.00-0.90) mg/dL B-Natriuretic Peptide 439 H (<100) PG/ML Total Protein 7.5 (6.4-8.2) g/dL Albumin 3.5 (3.4-5.0) g/dL Globulin 4.0 (2.6-4.0) g/dL Albumin/Globulin Ratio 0.9 (0.9-1.6) Lipase 146 (73-393) U/L Urine Color Urine Appearance Urine pH (5.0-8.0) Ur Specific Roxana (1.001-1.035) Urine Protein (NEGATIVE) mg/dL Urine Glucose (UA) (NEGATIVE) mg/dL Urine Ketones (NEGATIVE) mg/dL Urine Occult Blood (NEGATIVE) Urine Nitrite (NEGATIVE) Urine Bilirubin (NEGATIVE) Urine Urobilinogen (<2.0) EU/dL Ur Leukocyte Esterase (NEGATIVE) SARS-CoV-2 RNA (SHEILA) NEGATIVE (NEGATIVE) 02/06/21 02/06/21 02/06/21 Range/Units 16:40 16:50 17:40 WBC (4.0-11.0) K/uL RBC (4.50-5.90) M/uL Hgb (13.0-17.0) g/dL Hct (38.0-50.0) % MCV (80.0-98.0) fL MCH (27.0-32.0) pg MCHC (31.0-37.0) g/dL RDW Std Deviation (28.0-62.0) fl RDW Coeff of Shivani (11.0-15.0) % Plt Count (150-400) K/uL MPV (7.40-12.00) fL Neut % (Auto) (48.0-80.0) % Lymph % (Auto) (16.0-40.0) % [place] % (Auto) (0.0-15.0) % Eos % (Auto) (0.0-7.0) % Baso % (Auto) (0.0-1.5) % Neut # (Auto) (1.4-5.7) K/uL Lymph # (Auto) (0.6-2.4) K/uL [place] # (Auto) (0.0-0.8) K/uL Eos # (Auto) (0.0-0.7) K/uL Baso # (Auto) (0.0-0.1) K/uL Nucleated RBC % /100WBC Nucleated RBCs # K/uL D-Dimer, Quantitative (0.0-0.50) mg/L FEU ABG pH 7.03 L* (7.35-7.45) ABG pCO2 88 H (35-45) mmHG ABG pO2 104 (80-105) mmHG ABG HCO3 23 (22-26) mEq/L ABG Total CO2 22.4 L (23-27) mmol/L ABG Base Excess -10.1 L (-2.0-3.0) Sodium (136-148) mmol/L Potassium (3.5-5.1) mmol/L Chloride (98-107) mmol/L Carbon Dioxide (21.0-32.0) mmol/L BUN (7.0-18.0) mg/dL Creatinine (0.8-1.3) mg/dL Est Cr Clr Drug Dosing Estimated GFR (MDRD) ml/min Glucose (74-106) mg/dL Lactic Acid 1.4 (0.4-2.0) mmol/L Calcium (8.5-10.1) mg/dL Phosphorus (2.6-4.7) mg/dL Magnesium (1.8-2.4) mg/dL Total Bilirubin (0.2-1.0) mg/dL AST (15-37) IU/L ALT (14-63) IU/L Alkaline Phosphatase (46-116) U/L Creatine Kinase (26-308) U/L C-Reactive Protein (0.00-0.90) mg/dL B-Natriuretic Peptide (<100) PG/ML Total Protein (6.4-8.2) g/dL Albumin (3.4-5.0) g/dL Globulin (2.6-4.0) g/dL Albumin/Globulin Ratio (0.9-1.6) Lipase (73-393) U/L Urine Color YELLOW Urine Appearance CLEAR Urine pH 6.0 (5.0-8.0) Ur Specific [place]oxana >= 1.030 (1.001-1.035) Urine Protein TRACE H (NEGATIVE) mg/dL Urine Glucose (UA) NEGATIVE (NEGATIVE) mg/dL Urine Ketones TRACE H (NEGATIVE) mg/dL Urine Occult Blood NEGATIVE (NEGATIVE) Urine Nitrite NEGATIVE (NEGATIVE) Urine Bilirubin NEGATIVE (NEGATIVE) Urine Urobilinogen 1.0 (<2.0) EU/dL Ur Leukocyte Esterase NEGATIVE (NEGATIVE) SARS-CoV-2 RNA (SHEILA) (NEGATIVE) 02/06/21 02/07/21 02/07/21 Range/Units 18:50 00:05 05:28 WBC (4.0-11.0) K/uL RBC (4.50-5.90) M/uL Hgb (13.0-17.0) g/dL Hct (38.0-50.0) % MCV (80.0-98.0) fL MCH (27.0-32.0) pg MCHC (31.0-37.0) g/dL RDW Std Deviation (28.0-62.0) fl RDW Coeff of Shivani (11.0-15.0) % Plt Count (150-400) K/uL MPV (7.40-12.00) fL Neut % (Auto) (48.0-80.0) % Lymph % (Auto) (16.0-40.0) % [place] % (Auto) (0.0-15.0) % Eos % (Auto) (0.0-7.0) % Baso % (Auto) (0.0-1.5) % Neut # (Auto) (1.4-5.7) K/uL Lymph # (Auto) (0.6-2.4) K/uL [place] # (Auto) (0.0-0.8) K/uL Eos # (Auto) (0.0-0.7) K/uL Baso # (Auto) (0.0-0.1) K/uL Nucleated RBC % /100WBC Nucleated RBCs # K/uL D-Dimer, Quantitative 4.26 H (0.0-0.50) mg/L FEU ABG pH 7.12 L* 7.21 L (7.35-7.45) ABG pCO2 69 H 53 H (35-45) mmHG ABG pO2 74 L 62 L (80-105) mmHG ABG HCO3 22 21 L (22-26) mEq/L ABG Total CO2 21.2 L 19.8 L (23-27) mmol/L ABG Base Excess -8.5 L -7.1 L (-2.0-3.0) Sodium (136-148) mmol/L Potassium (3.5-5.1) mmol/L Chloride (98-107) mmol/L Carbon Dioxide (21.0-32.0) mmol/L BUN (7.0-18.0) mg/dL Creatinine (0.8-1.3) mg/dL Est Cr Clr Drug Dosing Estimated GFR (MDRD) ml/min Glucose (74-106) mg/dL Lactic Acid (0.4-2.0) mmol/L Calcium (8.5-10.1) mg/dL Phosphorus (2.6-4.7) mg/dL Magnesium (1.8-2.4) mg/dL Total Bilirubin (0.2-1.0) mg/dL AST (15-37) IU/L ALT (14-63) IU/L Alkaline Phosphatase (46-116) U/L Creatine Kinase (26-308) U/L C-Reactive Protein (0.00-0.90) mg/dL B-Natriuretic Peptide (<100) PG/ML Total Protein (6.4-8.2) g/dL Albumin (3.4-5.0) g/dL Globulin (2.6-4.0) g/dL Albumin/Globulin Ratio (0.9-1.6) Lipase (73-393) U/L Urine Color Urine Appearance Urine pH (5.0-8.0) Ur Specific Rox[place] (1.001-1.035) Urine Protein (NEGATIVE) mg/dL Urine Glucose (UA) (NEGATIVE) mg/dL Urine Ketones (NEGATIVE) mg/dL Urine Occult Blood (NEGATIVE) Urine Nitrite (NEGATIVE) Urine Bilirubin (NEGATIVE) Urine Urobilinogen (<2.0) EU/dL Ur Leukocyte Esterase (NEGATIVE) SARS-CoV-2 RNA (SHEILA) (NEGATIVE) 02/07/21 02/07/21 Range/Units 05:28 05:28 WBC 15.58 H (4.0-11.0) K/uL RBC 4.56 (4.50-5.90) M/uL Hgb 13.6 (13.0-17.0) g/dL Hct 43.3 (38.0-50.0) % MCV 95.0 (80.0-98.0) fL MCH 29.8 (27.0-32.0) pg MCHC 31.4 (31.0-37.0) g/dL RDW Std Deviation 56.9 (28.0-62.0) fl RDW Coeff of Shivani 17 H (11.0-15.0) % Plt Count 209 (150-400) K/uL MPV 10.60 (7.40-12.00) fL Neut % (Auto) 94.1 H (48.0-80.0) % Lymph % (Auto) 2.0 L (16.0-40.0) % [place] % (Auto) 3.8 (0.0-15.0) % Eos % (Auto) 0.0 (0.0-7.0) % Baso % (Auto) 0.1 (0.0-1.5) % Neut # (Auto) 14.7 H (1.4-5.7) K/uL Lymph # (Auto) 0.3 L (0.6-2.4) K/uL [place] # (Auto) 0.6 (0.0-0.8) K/uL Eos # (Auto) 0.0 (0.0-0.7) K/uL Baso # (Auto) 0.0 (0.0-0.1) K/uL Nucleated RBC % 0.0 /100WBC Nucleated RBCs # 0 K/uL D-Dimer, Quantitative (0.0-0.50) mg/L FEU ABG pH (7.35-7.45) ABG pCO2 (35-45) mmHG ABG pO2 (80-105) mmHG ABG HCO3 (22-26) mEq/L ABG Total CO2 (23-27) mmol/L ABG Base Excess (-2.0-3.0) Sodium 143 (136-148) mmol/L Potassium 4.0 (3.5-5.1) mmol/L Chloride 109 H (98-107) mmol/L Carbon Dioxide 24.2 (21.0-32.0) mmol/L BUN 29 H (7.0-18.0) mg/dL Creatinine 1.0 (0.8-1.3) mg/dL Est Cr Clr Drug Dosing 63.88 Estimated GFR (MDRD) > 60.0 ml/min Glucose 124 H (74-106) mg/dL Lactic Acid (0.4-2.0) mmol/L Calcium 7.6 L (8.5-10.1) mg/dL Phosphorus (2.6-4.7) mg/dL Magnesium (1.8-2.4) mg/dL Total Bilirubin 0.4 (0.2-1.0) mg/dL AST 12 L (15-37) IU/L ALT 14 (14-63) IU/L Alkaline Phosphatase 55 (46-116) U/L Creatine Kinase (26-308) U/L C-Reactive Protein <0.20 (0.00-0.90) mg/dL B-Natriuretic Peptide (<100) PG/ML Total Protein 6.4 (6.4-8.2) g/dL Albumin 2.9 L (3.4-5.0) g/dL Globulin 3.5 (2.6-4.0) g/dL Albumin/Globulin Ratio 0.8 L (0.9-1.6) Lipase (73-393) U/L Urine Color Urine Appearance Urine pH (5.0-8.0) Ur Specific Rox[place] (1.001-1.035) Urine Protein (NEGATIVE) mg/dL Urine Glucose (UA) (NEGATIVE) mg/dL Urine Ketones (NEGATIVE) mg/dL Urine Occult Blood (NEGATIVE) Urine Nitrite (NEGATIVE) Urine Bilirubin (NEGATIVE) Urine Urobilinogen (<2.0) EU/dL Ur Leukocyte Esterase (NEGATIVE) SARS-CoV-2 RNA (SHEILA) (NEGATIVE) Result Diagrams: 02/07/21 05:28 02/07/21 05:28 Sepsis Event Note - Evaluation Sepsis Screening Result: No Definite Risk - Focused Exam Vital Signs: Vital Signs Temp Resp BP Pulse Ox 02/07/21 06:58 12 98/49 L 95 02/07/21 06:00 13 100/53 L 95 02/07/21 05:00 21 H 124/76 94 L 02/07/21 04:00 36.5 C 13 121/62 96 02/07/21 03:00 18 98/80 95 02/07/21 02:00 17 100/56 L 96 02/07/21 01:00 12 98/53 L 92 L - Problem List & Annotations (1) CHF (congestive heart failure), NYHA class III SNOMED Code(s): 449038395, 644025424 Code(s): I50.9 - HEART FAILURE, UNSPECIFIED Status: Acute Priority: High Current Visit: Yes Onset Date: ~02/06/21 Qualifiers: Congestive heart failure type: systolic Congestive heart failure chronicity: acute on chronic Qualified Code(s): I50.23 - Acute on chronic systolic (congestive) heart failure (2) COPD (chronic obstructive pulmonary disease) with emphysema SNOMED Code(s): 46707807 Code(s): J43.9 - EMPHYSEMA, UNSPECIFIED Status: Acute Priority: High Current Visit: Yes Onset Date: ~02/07/21 Qualifiers: Emphysema type: centrilobular Qualified Code(s): J43.2 - Centrilobular emphysema (3) Hypoxia SNOMED Code(s): 841537270 Code(s): R09.02 - HYPOXEMIA Status: Acute Priority: High Current Visit: No Onset Date: ~02/07/21 Annotation/Comment:: improved oxigenation and co2 by abg. rr 24-40 (4) Pneumonia SNOMED Code(s): 575019412 Code(s): J18.9 - PNEUMONIA, UNSPECIFIED ORGANISM Status: Acute Priority: High Current Visit: No Onset Date: ~02/07/21 Qualifiers: Laterality: bilateral - Problem List Review Problem List Initiated/Reviewed/Updated: Yes - My Orders Last 24 Hours: My Active Orders 02/06/21 17:00 Transfer Patient (Change bed) [ADT] Routine 02/06/21 17:15 Insert Paul Catheter [Insert Urinary Catheter] [OM.PC] Q24H 02/06/21 17:16 Urinary Catheter Assessment [RC] Q4HR 02/06/21 17:18 Vital Signs [RC] Q1H 02/06/21 17:45 Pharmacy to Dose - Vancomycin 1 dose .XX ASDIRECTED 02/06/21 17:56 LORazepam [Ativan] 2 mg IVPUSH Q2H PRN 02/06/21 18:00 Ampicillin/Sulbactam Na [Unasyn] 3 gm Sodium Chloride 0.9% [Normal Saline AdvBag] 100 ml IV Q8H VANCOmycin 1.5 GM/300 ML 1.5 gm Premix Bag 1 bag IV Q24H 02/06/21 19:30 Norepinephrine Bit/0.9 % NaCl [Norepinephr-0.9% NaCl 4 mg/250] 4 mg in 250 ml IV TITRATE 02/06/21 20:00 Central Venous Line Insertion [OM.PC] Routine 02/06/21 21:00 Enoxaparin [Lovenox] 40 mg SUBCUT Q12HR 02/07/21 05:00 CORONAVIRUS COVID-19 SHEILA [MOLEC] Routine 02/07/21 Breakfast NPO [Nothing Per Oral Diet] [DIET] 02/07/21 12:39 COVID-19/FLU A+B/RSV [MOLEC] Stat 02/07/21 12:40 ABG [BLOOD GAS ARTERIAL] [BG] Routine 02/07/21 12:45 Furosemide [Lasix] 20 mg IVPUSH DAILY 02/07/21 17:00 Azithromycin [Zithromax] 500 mg Sodium Chloride 0.9% [Normal Saline AdvBag] 250 ml IV Q24H 02/08/21 05:00 CBC WITH AUTO DIFF [HEME] DAILY COMPREHENSIVE METABOLIC PN,CMP [CHEM] DAILY CRP [C-REACTIVE PROTEIN] [CHEM] DAILY 02/09/21 05:00 CBC WITH AUTO DIFF [HEME] DAILY COMPREHENSIVE METABOLIC PN,CMP [CHEM] DAILY CRP [C-REACTIVE PROTEIN] [CHEM] DAILY 02/09/21 17:30 VANCOMYCIN TROUGH [CHEM] Timed 12/30/21 05:00 CBC WITH AUTO DIFF [HEME] DAILY - Assessment Assessment:: 02/07/21 assess: chf with pulm edema acute on chronic suspected. rt sided findings most prominant with pulm edema nd bilatteral pleural effusions. hx of chronic symptoms and copd/emphesema likely . rule out covid neg and immunized for covid and flu. improved with high dose steriods and nebs and bipap with 70% fio2. co2 retention seen likely acute coupled with metabolic acidosis and -b.e. of 8 initially . repeat abg as day goes on . needs echo and repeat trop and bnp . hypotension: better. has good urine output and given lasix this am . bnp 1440. possible pneumonia but not called by radiology . on b.s antibiotics . elevated blood sugars on steroids and monitoring for now check a1c . family updated and code status changed to no code and no intubation. plan : cont same and get ct scan lungs if stable for ct scan (rule out p.e. and evaluate pneumoia and chf.) boh - Plan Plan:: 02/07/21 afebrile /vss/ stable night with improved resp status on bipap// increased peep 14 and fio2 at 70 % / rate 20 min. improved tidal volume 650/ rr 20-32. see abg results 1 and 2. sleeping and ao x2 not answering questions but responds to name . lungs : prolonged wheezes but good air movement . very distant but better ( than yest.) cor. rrr abd benign. neuro : joshi . responds to [pain and voice. lab repeat inf/covid/rsv screen pending. . cbc elavated 17 . hgn dropped mildly . 14.6 plat good. chest xray: small bilateral effusions a with chf and vasc markings though out lung eid. repeat trop pending. telemetry unifcal pvcs seen occasionally . assess: chf with pulm edema acute on chronic suspected. rt sided findings most prominant with pulm edema nd bilatteral ple ural effusions. hx of chronic symptoms and copd/emphesema likely . rule out covid neg and immunized for covid and flu. improved with high dose steriods and nebs and bipap with 70% fio2. co2 retention seen likely acute coupled with metabolic acidosis and -b.e. of 8 initially . repeat abg as day goes on . needs echo and repeat trop and bnp . hypotension: better. has good urine output and given lasix this am . bnp 1440. possible pneumonia but not called by radiology . on b.s antibiotics . elevated blood sugars on steroids and monitoring for now check a1c . family updated and code status changed to no code and no intubation. plan cont same and get ct scan lungs if stable for ct scan (rule out p.e. and evaluate pneumonia and chf.) boh
[2021-02-07 14:27] LABS: CORONAVIRUS COVID-19 NAA NEGATIVE (NEGATIVE); INFLUENZA A NAA NEGATIVE (NEGATIVE); INFLUENZA B NAA NEGATIVE (NEGATIVE); RESPIRATORY SYNCYTIAL VIR NAA NEGATIVE (NEGATIVE)
[2021-02-07] MEDS ORDERED: Glucagon,Human Recombinant 1 MG Vial IM PRN (17:05)
[2021-02-07] MEDS ORDERED: 50% Dextrose in Water 50 ML Syringe IVPUSH PRN (17:05)
[2021-02-07] MEDS: Insulin Aspart 100 Units/ML 3 ML Pen SUBCUT SCH (17:43)
[2021-02-07] MEDS: Azithromycin 500 MG in Sodium Chloride 0.9% 250 ML IV SCH (17:57)
[2021-02-07] MEDS: VANCOmycin 1.5 GM/300 ML 1.5 GM in Premix Bag 1 BAG IV SCH (18:28)
[2021-02-07] MEDS ORDERED: Iopamidol 755 MG/ML 500 ML Multipack Bottle IVPUSH STA (23:28)
--- NOTE | 2021-02-07 23:56 | CT ---
INDICATION: Shortness of breath and elevated D-dimer TECHNIQUE: CT chest PE was acquired with 100 cc Isovue 370 intravenous contrast. COMPARISON: None. FINDINGS: Heart and vasculature: Contrast opacification of the pulmonary arterial tree is adequate. No sign of pulmonary embolism. Aortic arch is left-sided with atherosclerotic calcification. Trace pericardial fluid. Right internal jugular line extends to the mid superior vena cava level. Lungs and pleural: Small to moderate bilateral pleural effusions. Severe centrilobular emphysema. Linear opacity within the lingula. Dependent atelectasis with some interlobular septal thickening within the lower lungs. Lymph nodes/mediastinum: Precarinal lymph nodes measure up to 18 millimeters in short axis. Right hilar lymph nodes measure 19 millimeters in short axis. Subcarinal lymph nodes measure up to 18 millimeters in short axis. Chest wall: No masses. Upper abdomen: Colonic diverticulosis. Bones: Old T9 compression fracture. IMPRESSION: 1. No evidence of pulmonary embolus. 2. Small to moderate bilateral pleural effusions with interlobular septal thickening suggesting pulmonary edema. 3. Severe centrilobular emphysema. 4. Linear opacity within the lingula. Favor atelectasis although follow-up chest CT suggested in 3 months to assess for resolution. 5. Mediastinal and right hilar adenopathy. This can be secondary to pulmonary edema although re-evaluation at the time of follow-up CT scan suggested to assess for resolution. Please note that all CT scans at this facility use dose modulation, iterative reconstruction, and/or weight-based dosing when appropriate to reduce radiation dose to as low as reasonably achievable. Dictated by Lucas Ledezma MD @ 02/07/2021 11:54:37 PM (Electronically Signed)
[2021-02-08] MEDS: Ampicillin/Sulbactam Na 3 GM in Sodium Chloride 0.9% 100 ML IV SCH ×4 (02:19→20:01)
[2021-02-08 06:20] LABS: BLOOD UREA NITROGEN,BUN 27 mg/dL (7.0-18.0); CARBON DIOXIDE,CO2 26.7 mmol/L (21.0-32.0); CHLORIDE,CL 110 mmol/L (98-107); GLUCOSE RANDOM 87 mg/dL (74-106); POTASSIUM,K 3.8 mmol/L (3.5-5.1); SODIUM,NA 145 mmol/L (136-148)
[2021-02-08] MEDS: Furosemide 20 MG/2 ML VIAL IVPUSH SCH (10:00)
[2021-02-08] MEDS: Enoxaparin 40 MG/0.4 ML Syringe SUBCUT SCH (10:00)
[2021-02-08] MEDS: Insulin Aspart 100 Units/ML 3 ML Pen SUBCUT SCH ×3 (10:30→19:00)
--- NOTE | 2021-02-08 14:26 | PCM.PN ---
- General Info Date of Service: 02/08/21 Subjective Update: Pt is feeling somewhat better today. He is currently on HFNC 45L and 60% FIO2 and seems to be tolerating that better than the bipap. CT chest findings noted. Pt has no P.E. There is some pulmonary edema, bilateral pleural effusions and severe centrilobar emphysema. No infiltrate reported. - Patient Data Vitals - Most Recent: Last Vital Signs Temp 98.4 F 02/08/21 05:00 Pulse 67 02/06/21 19:00 Resp 12 02/08/21 06:00 BP 104/53 L 02/08/21 06:00 Pulse Ox 90 L 02/08/21 06:00 Weight - Most Recent: 194 lb 7.163 oz I&O - Last 24 Hours: Intake & Output 02/07/21 02/08/21 02/08/21 22:59 06:59 14:59 Intake Total 1070 500 100 Output Total 775 575 Balance 295 -75 100 Lab Results Last 24 Hours: Laboratory Results - last 24 hr 02/07/21 02/07/21 02/07/21 Range/Units 13:28 17:16 17:27 WBC (4.0-11.0) K/uL RBC (4.50-5.90) M/uL Hgb (13.0-17.0) g/dL Hct (38.0-50.0) % MCV (80.0-98.0) fL MCH (27.0-32.0) pg MCHC (31.0-37.0) g/dL RDW Std Deviation (28.0-62.0) fl RDW Coeff of Shivani (11.0-15.0) % Plt Count (150-400) K/uL MPV (7.40-12.00) fL Neut % (Auto) (48.0-80.0) % Lymph % (Auto) (16.0-40.0) % Baldwin % (Auto) (0.0-15.0) % Eos % (Auto) (0.0-7.0) % Baso % (Auto) (0.0-1.5) % Neut # (Auto) (1.4-5.7) K/uL Lymph # (Auto) (0.6-2.4) K/uL Baldwin # (Auto) (0.0-0.8) K/uL Eos # (Auto) (0.0-0.7) K/uL Baso # (Auto) (0.0-0.1) K/uL Nucleated RBC % /100WBC Nucleated RBCs # K/uL ABG pH 7.32 L (7.35-7.45) ABG pCO2 48 H (35-45) mmHG ABG pO2 66 L (80-105) mmHG ABG HCO3 25 (22-26) mEq/L ABG Total CO2 22.7 L (23-27) mmol/L ABG Base Excess -1.7 (-2.0-3.0) Sodium (136-148) mmol/L Potassium (3.5-5.1) mmol/L Chloride (98-107) mmol/L Carbon Dioxide (21.0-32.0) mmol/L BUN (7.0-18.0) mg/dL Creatinine (0.8-1.3) mg/dL Est Cr Clr Drug Dosing mL/min Estimated GFR (MDRD) ml/min Glucose (74-106) mg/dL POC Glucose 101 H (70-99) mg/dL Calcium (8.5-10.1) mg/dL Total Bilirubin (0.2-1.0) mg/dL AST (15-37) IU/L ALT (14-63) IU/L Alkaline Phosphatase (46-116) U/L C-Reactive Protein (0.00-0.90) mg/dL Total Protein (6.4-8.2) g/dL Albumin (3.4-5.0) g/dL Globulin (2.6-4.0) g/dL Albumin/Globulin Ratio (0.9-1.6) Influenza Type A RNA NEGATIVE (NEGATIVE) RSV RNA (INAAT) NEGATIVE (NEGATIVE) Influenza Type B RNA NEGATIVE (NEGATIVE) SARS-CoV-2 RNA (SHEILA) NEGATIVE (NEGATIVE) 02/08/21 02/08/21 02/08/21 Range/Units 05:14 05:14 10:18 WBC 11.98 H (4.0-11.0) K/uL RBC 4.06 L (4.50-5.90) M/uL Hgb 12.1 L (13.0-17.0) g/dL Hct 38.0 (38.0-50.0) % MCV 93.6 (80.0-98.0) fL MCH 29.8 (27.0-32.0) pg MCHC 31.8 (31.0-37.0) g/dL RDW Std Deviation 56.1 (28.0-62.0) fl RDW Coeff of Shivani 16 H (11.0-15.0) % Plt Count 190 (150-400) K/uL MPV 10.50 (7.40-12.00) fL Neut % (Auto) 82.7 H (48.0-80.0) % Lymph % (Auto) 6.7 L (16.0-40.0) % Baldwin % (Auto) 10.3 (0.0-15.0) % Eos % (Auto) 0.2 (0.0-7.0) % Baso % (Auto) 0.1 (0.0-1.5) % Neut # (Auto) 9.9 H (1.4-5.7) K/uL Lymph # (Auto) 0.8 (0.6-2.4) K/uL Baldwin # (Auto) 1.2 H (0.0-0.8) K/uL Eos # (Auto) 0.0 (0.0-0.7) K/uL Baso # (Auto) 0.0 (0.0-0.1) K/uL Nucleated RBC % 0.0 /100WBC Nucleated RBCs # 0 K/uL ABG pH (7.35-7.45) ABG pCO2 (35-45) mmHG ABG pO2 (80-105) mmHG ABG HCO3 (22-26) mEq/L ABG Total CO2 (23-27) mmol/L ABG Base Excess (-2.0-3.0) Sodium 145 (136-148) mmol/L Potassium 3.8 (3.5-5.1) mmol/L Chloride 110 H (98-107) mmol/L Carbon Dioxide 26.7 (21.0-32.0) mmol/L BUN 27 H (7.0-18.0) mg/dL Creatinine 0.8 (0.8-1.3) mg/dL Est Cr Clr Drug Dosing 79.84 mL/min Estimated GFR (MDRD) > 60.0 ml/min Glucose 87 (74-106) mg/dL POC Glucose 100 H (70-99) mg/dL Calcium 7.6 L (8.5-10.1) mg/dL Total Bilirubin 0.4 (0.2-1.0) mg/dL AST 9 L (15-37) IU/L ALT 14 (14-63) IU/L Alkaline Phosphatase 44 L (46-116) U/L C-Reactive Protein <0.20 (0.00-0.90) mg/dL Total Protein 5.4 L (6.4-8.2) g/dL Albumin 2.6 L (3.4-5.0) g/dL Globulin 2.8 (2.6-4.0) g/dL Albumin/Globulin Ratio 0.9 (0.9-1.6) Influenza Type A RNA (NEGATIVE) RSV RNA (INAAT) (NEGATIVE) Influenza Type B RNA (NEGATIVE) SARS-CoV-2 RNA (SHEILA) (NEGATIVE) Kvng Results Last 24 Hours: Microbiology 02/06/21 12:45 Aerobic Blood Culture - Preliminary Blood - Venous NO GROWTH AFTER 2 DAYS Anaerobic Blood Culture - Preliminary NO GROWTH AFTER 2 DAYS 02/06/21 13:02 Aerobic Blood Culture - Preliminary Blood - Venous - Lab Draw NO GROWTH AFTER 2 DAYS Anaerobic Blood Culture - Preliminary NO GROWTH AFTER 2 DAYS Med Orders - Current: Current Medications Albuterol/Ipratropium (Albuterol/Ipratropium 3.0-0.5 Mg/3 Ml Neb Soln) 3 ml NEB Q4HRRT PRN PRN Reason: Shortness of Breath Last Admin: 02/07/21 06:24 Dose: 3 ml Documented by: Dextrose/Water (50% Dextrose In Water 50 Ml Syringe) 50 ml IVPUSH ASDIRECTED PRN PRN Reason: Hypoglycemia Enoxaparin Sodium (Enoxaparin 40 Mg/0.4 Ml Syringe) 40 mg SUBCUT Q12HR JAY Last Admin: 02/08/21 10:00 Dose: 40 mg Documented by: Furosemide (Furosemide 20 Mg/2 Ml Vial) 20 mg IVPUSH DAILY JAY Last Admin: 02/08/21 10:00 Dose: 20 mg Documented by: Glucagon (Glucagon,Human Recombinant 1 Mg Vial) 1 mg IM ASDIRECTED PRN PRN Reason: Hypoglycemia Vancomycin HCl 1.5 gm/ Premix 300 mls @ 200 mls/hr IV Q24H JAY Last Admin: 02/07/21 18:28 Dose: 200 mls/hr Documented by: Norepinephrine Bitartrate (Norepinephr-0.9% Nacl 4 Mg/250) 4 mg in 250 mls @ 7.5 mls/hr IV TITRATE [facility]; Protocol Azithromycin 500 mg/ Sodium (Chloride) 250 mls @ 250 mls/hr IV Q24H [facility] Stop: 02/10/21 17:59 Last Admin: 02/07/21 17:57 Dose: 250 mls/hr Documented by: Ampicillin Sodium/Sulbactam (Sodium 3 gm/ Sodium Chloride) 100 mls @ 200 mls/hr IV Q6H [facility] Last Admin: 02/08/21 09:59 Dose: 200 mls/hr Documented by: Insulin Aspart (Insulin Aspart 100 Units/Ml 3 Ml Pen) 0 unit SUBCUT TIDAC [facility]; Protocol Last Admin: 02/08/21 10:30 Dose: Not Given Documented by: Lorazepam (Lorazepam 2 Mg/Ml Sdv) 2 mg IVPUSH Q2H PRN PRN Reason: Agitation Last Admin: 02/06/21 22:48 Dose: 2 mg Documented by: Vancomycin HCl (Pharmacy To Dose - Vancomycin) 1 dose .XX ASDIRECTED [facility] Discontinued Medications Albuterol/Ipratropium (Albuterol/Ipratropium 3.0-0.5 Mg/3 Ml Neb Soln) Confirm Administered Dose 3 ml .ROUTE .STK-MED ONE Stop: 02/06/21 15:08 Last Admin: 02/06/21 15:47 Dose: Not Given Documented by: Albuterol/Ipratropium (Albuterol/Ipratropium 3.0-0.5 Mg/3 Ml Neb Soln) 3 ml NEB ONETIME ONE Stop: 02/06/21 15:46 Last Admin: 02/06/21 15:47 Dose: 3 ml Documented by: Dexamethasone (Dexamethasone 10 Mg/Ml Sdv) 10 mg IVPUSH ONETIME ONE Stop: 02/06/21 12:06 Last Admin: 02/06/21 12:34 Dose: 10 mg Documented by: Ceftriaxone Sodium/Dextrose 1 (gm/ Premix) 50 mls @ 100 mls/hr IV ONETIME ONE Stop: 02/06/21 14:25 Last Admin: 02/06/21 14:18 Dose: 100 mls/hr Documented by: Azithromycin 500 mg/ Sodium (Chloride) 250 mls @ 250 mls/hr IV ONETIME JAY Ampicillin Sodium/Sulbactam (Sodium 3 gm/ Sodium Chloride) 100 mls @ 200 mls/hr IV Q8H JAY Last Admin: 02/08/21 02:19 Dose: 200 mls/hr Documented by: Iopamidol (Iopamidol 755 Mg/Ml 500 Ml Multipack Bottle) 100 ml IVPUSH ONETIME STA Stop: 02/07/21 23:29 Last Admin: 02/07/21 23:29 Dose: 100 ml Documented by: - Exam Central Line Total Time: 1Days 9Hours Urinary Catheter Total Time: 1Days 13Hours Physical Findings Comments:: General: Elderly male. In no acute distress CVS: S1S2 appreciated. RRR lungs: diminished bilaterally but no wheezes pa: soft, non tender. bowel sounds present ext: no clubbing, cyanosis or edema neuro: moves all extremities. no focal deficits. - Patient Data Lab Results Last 24 hrs: Laboratory Results - last 24 hr 02/07/21 02/07/21 02/07/21 Range/Units 13:28 17:16 17:27 WBC (4.0-11.0) K/uL RBC (4.50-5.90) M/uL Hgb (13.0-17.0) g/dL Hct (38.0-50.0) % MCV (80.0-98.0) fL MCH (27.0-32.0) pg MCHC (31.0-37.0) g/dL RDW Std Deviation (28.0-62.0) fl RDW Coeff of Shivani (11.0-15.0) % Plt Count (150-400) K/uL MPV (7.40-12.00) fL Neut % (Auto) (48.0-80.0) % Lymph % (Auto) (16.0-40.0) % Baldwin % (Auto) (0.0-15.0) % Eos % (Auto) (0.0-7.0) % Baso % (Auto) (0.0-1.5) % Neut # (Auto) (1.4-5.7) K/uL Lymph # (Auto) (0.6-2.4) K/uL Baldwin # (Auto) (0.0-0.8) K/uL Eos # (Auto) (0.0-0.7) K/uL Baso # (Auto) (0.0-0.1) K/uL Nucleated RBC % /100WBC Nucleated RBCs # K/uL ABG pH 7.32 L (7.35-7.45) ABG pCO2 48 H (35-45) mmHG ABG pO2 66 L (80-105) mmHG ABG HCO3 25 (22-26) mEq/L ABG Total CO2 22.7 L (23-27) mmol/L ABG Base Excess -1.7 (-2.0-3.0) Sodium (136-148) mmol/L Potassium (3.5-5.1) mmol/L Chloride (98-107) mmol/L Carbon Dioxide (21.0-32.0) mmol/L BUN (7.0-18.0) mg/dL Creatinine (0.8-1.3) mg/dL Est Cr Clr Drug Dosing mL/min Estimated GFR (MDRD) ml/min Glucose (74-106) mg/dL POC Glucose 101 H (70-99) mg/dL Calcium (8.5-10.1) mg/dL Total Bilirubin (0.2-1.0) mg/dL AST (15-37) IU/L ALT (14-63) IU/L Alkaline Phosphatase (46-116) U/L C-Reactive Protein (0.00-0.90) mg/dL Total Protein (6.4-8.2) g/dL Albumin (3.4-5.0) g/dL Globulin (2.6-4.0) g/dL Albumin/Globulin Ratio (0.9-1.6) Influenza Type A RNA NEGATIVE (NEGATIVE) RSV RNA (INAAT) NEGATIVE (NEGATIVE) Influenza Type B RNA NEGATIVE (NEGATIVE) SARS-CoV-2 RNA (SHEILA) NEGATIVE (NEGATIVE) 02/08/21 02/08/21 02/08/21 Range/Units 05:14 05:14 10:18 WBC 11.98 H (4.0-11.0) K/uL RBC 4.06 L (4.50-5.90) M/uL Hgb 12.1 L (13.0-17.0) g/dL Hct 38.0 (38.0-50.0) % MCV 93.6 (80.0-98.0) fL MCH 29.8 (27.0-32.0) pg MCHC 31.8 (31.0-37.0) g/dL RDW Std Deviation 56.1 (28.0-62.0) fl RDW Coeff of Shivani 16 H (11.0-15.0) % Plt Count 190 (150-400) K/uL MPV 10.50 (7.40-12.00) fL Neut % (Auto) 82.7 H (48.0-80.0) % Lymph % (Auto) 6.7 L (16.0-40.0) % Baldwin % (Auto) 10.3 (0.0-15.0) % Eos % (Auto) 0.2 (0.0-7.0) % Baso % (Auto) 0.1 (0.0-1.5) % Neut # (Auto) 9.9 H (1.4-5.7) K/uL Lymph # (Auto) 0.8 (0.6-2.4) K/uL Baldwin # (Auto) 1.2 H (0.0-0.8) K/uL Eos # (Auto) 0.0 (0.0-0.7) K/uL Baso # (Auto) 0.0 (0.0-0.1) K/uL Nucleated RBC % 0.0 /100WBC Nucleated RBCs # 0 K/uL ABG pH (7.35-7.45) ABG pCO2 (35-45) mmHG ABG pO2 (80-105) mmHG ABG HCO3 (22-26) mEq/L ABG Total CO2 (23-27) mmol/L ABG Base Excess (-2.0-3.0) Sodium 145 (136-148) mmol/L Potassium 3.8 (3.5-5.1) mmol/L Chloride 110 H (98-107) mmol/L Carbon Dioxide 26.7 (21.0-32.0) mmol/L BUN 27 H (7.0-18.0) mg/dL Creatinine 0.8 (0.8-1.3) mg/dL Est Cr Clr Drug Dosing 79.84 mL/min Estimated GFR (MDRD) > 60.0 ml/min Glucose 87 (74-106) mg/dL POC Glucose 100 H (70-99) mg/dL Calcium 7.6 L (8.5-10.1) mg/dL Total Bilirubin 0.4 (0.2-1.0) mg/dL AST 9 L (15-37) IU/L ALT 14 (14-63) IU/L Alkaline Phosphatase 44 L (46-116) U/L C-Reactive Protein <0.20 (0.00-0.90) mg/dL Total Protein 5.4 L (6.4-8.2) g/dL Albumin 2.6 L (3.4-5.0) g/dL Globulin 2.8 (2.6-4.0) g/dL Albumin/Globulin Ratio 0.9 (0.9-1.6) Influenza Type A RNA (NEGATIVE) RSV RNA (INAAT) (NEGATIVE) Influenza Type B RNA (NEGATIVE) SARS-CoV-2 RNA (SHEILA) (NEGATIVE) Result Diagrams: 02/08/21 05:14 02/08/21 05:14 Kvng Results Last 24 hrs: Microbiology 02/06/21 12:45 Aerobic Blood Culture - Preliminary Blood - Venous NO GROWTH AFTER 2 DAYS Anaerobic Blood Culture - Preliminary NO GROWTH AFTER 2 DAYS 02/06/21 13:02 Aerobic Blood Culture - Preliminary Blood - Venous - Lab Draw NO GROWTH AFTER 2 DAYS Anaerobic Blood Culture - Preliminary NO GROWTH AFTER 2 DAYS Sepsis Event Note - Evaluation Sepsis Screening Result: Possible Sepsis Risk - Focused Exam Vital Signs: Vital Signs Temp Resp BP Pulse Ox 02/08/21 06:00 12 104/53 L 90 L 02/08/21 05:00 98.4 F 22 H 114/58 L 93 L 02/08/21 04:00 14 107/55 L 90 L 02/08/21 03:00 12 104/51 L 90 L - Problem List & Annotations (1) Acute hypoxemic respiratory failure SNOMED Code(s): 396718615 Code(s): J96.01 - ACUTE RESPIRATORY FAILURE WITH HYPOXIA Status: Acute Current Visit: Yes (2) COPD, severe SNOMED Code(s): 833943213 Code(s): J44.9 - CHRONIC OBSTRUCTIVE PULMONARY DISEASE, UNSPECIFIED Status: Acute Current Visit: Yes (3) History of tobacco abuse SNOMED Code(s): 619888379, 170415315 Code(s): Z87.891 - PERSONAL HISTORY OF NICOTINE DEPENDENCE Status: Acute Current Visit: Yes (4) DNI (do not intubate) SNOMED Code(s): 588452349 Code(s): Z78.9 - OTHER SPECIFIED HEALTH STATUS Status: Acute Current Visit: Yes - Problem List Review Problem List Initiated/Reviewed/Updated: Yes - Assessment Assessment:: Acute respiratory failure likely due to acute pulmonary edema from underlying lung disease. Pt most likely has cor pulmonale. Continue with oxygen supplementation HFNC alternating with bipap as tolerated. lasix prn Abx for possible bacterial pneumonia Pulmonary edema possibly due to cor pulmonale Pt could also have ACS causing the pulm edema. I will check a troponin and a 2 DCHO. Will increase lasix to 40mg IV Q12 x 3 doses. check am BMP Severe COPD and possibly ILD Pt has a 60+ pack yr smoking history. 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 continue with nebs and steroids. DNR/DNI Pt intermediate prognosis is poor given the severity of his lung disease. DVT prophylaxis. - Plan Plan:: 02/07/21 afebrile /vss/ stable night with improved resp status on bipap// increased peep 14 and fio2 at 70 % / rate 20 min. improved tidal volume 650/ rr 20-32. see abg results 1 and 2. sleeping and ao x2 not answering questions but responds to name . lungs : prolonged wheezes but good air movement . very distant but better ( than yest.) cor. rrr abd benign. neuro : joshi . responds to [pain and voice. lab repeat inf/covid/rsv screen pending. . cbc elavated 17 . hgn dropped mildly . 14.6 plat good. chest xray: small bilateral effusions a with chf and vasc markings though out lung eid. repeat trop pending. telemetry unifcal pvcs seen occasionally . assess: chf with pulm edema acute on chronic suspected. rt sided findings most prominant with pulm edema nd bilatteral pleural effusions. hx of chronic symptoms and copd/emphesema likely . rule out covid neg and immunized for covid and flu. improved with high dose steriods and nebs and bipap with 70% fio2. co2 retention seen likely acute coupled with metabolic acidosis and -b.e. of 8 initially . repeat abg as day goes on . needs echo and repeat trop and bnp . hypotension: better. has good urine output and given lasix this am . bnp 1440. possible pneumonia but not called by radiology . on b.s antibiotics . elevated blood sugars on steroids and monitoring for now check a1c . family updated and code status changed to no code and no intubation. plan cont same and get ct scan lungs if stable for ct scan (rule out p.e. and evaluate pneumonia and chf.) boh
[2021-02-08] MEDS: Furosemide 40 MG/4 ML VIAL IVPUSH SCH (15:57)
[2021-02-08] MEDS ORDERED: Benzocaine/Cetylpyridinium/Menthol Lozenge MUCMEM PRN (16:19)
[2021-02-08] MEDS: VANCOmycin 1.5 GM/300 ML 1.5 GM in Premix Bag 1 BAG IV SCH (17:11)
[2021-02-08] MEDS: Azithromycin 500 MG in Sodium Chloride 0.9% 250 ML IV SCH (17:11)
[2021-02-08] MEDS: Albuterol/Ipratropium 3.0-0.5 MG/3 ML Neb Soln NEB PRN (17:17)
[2021-02-08] MEDS: guaiFENesin 600 MG Tab.ER PO SCH (21:14)
[2021-02-09] MEDS: Ampicillin/Sulbactam Na 3 GM in Sodium Chloride 0.9% 100 ML IV SCH ×3 (01:43→14:36)
[2021-02-09] MEDS: Furosemide 40 MG/4 ML VIAL IVPUSH SCH (02:38)
[2021-02-09 03:54] LABS: BLOOD UREA NITROGEN,BUN 21 mg/dL (7.0-18.0); CARBON DIOXIDE,CO2 32.1 mmol/L (21.0-32.0); CHLORIDE,CL 108 mmol/L (98-107); GLUCOSE RANDOM 101 mg/dL (74-106); POTASSIUM,K 3.3 mmol/L (3.5-5.1); SODIUM,NA 146 mmol/L (136-148)
--- NOTE | 2021-02-09 08:17 | PCM.PN ---
- General Info Date of Service: 02/09/21 Admission Dx/Problem (Free Text): Admission Diagnosis/Problem Admission Diagnosis/Problem Hypoxia/chf/pneumonia - Patient Data Vitals - Most Recent: Last Vital Signs Temp 97.0 F 02/09/21 04:00 Pulse 67 02/06/21 19:00 Resp 16 02/09/21 07:00 BP 116/57 L 02/09/21 07:00 Pulse Ox 91 L 02/09/21 07:00 Weight - Most Recent: 88.2 kg I&O - Last 24 Hours: Intake & Output 02/08/21 02/09/21 02/09/21 22:59 06:59 14:59 Intake Total 1270 520 Output Total 1999 2300 Balance -730 -1780 Lab Results Last 24 Hours: Laboratory Results - last 24 hr 02/08/21 02/08/21 02/08/21 Range/Units 10:18 14:48 15:07 WBC (4.0-11.0) K/uL RBC (4.50-5.90) M/uL Hgb (13.0-17.0) g/dL Hct (38.0-50.0) % MCV (80.0-98.0) fL MCH (27.0-32.0) pg MCHC (31.0-37.0) g/dL RDW Std Deviation (28.0-62.0) fl RDW Coeff of Shivani (11.0-15.0) % Plt Count (150-400) K/uL MPV (7.40-12.00) fL Neut % (Auto) (48.0-80.0) % Lymph % (Auto) (16.0-40.0) % [place] % (Auto) (0.0-15.0) % Eos % (Auto) (0.0-7.0) % Baso % (Auto) (0.0-1.5) % Neut # (Auto) (1.4-5.7) K/uL Lymph # (Auto) (0.6-2.4) K/uL [place] # (Auto) (0.0-0.8) K/uL Eos # (Auto) (0.0-0.7) K/uL Baso # (Auto) (0.0-0.1) K/uL Nucleated RBC % /100WBC Nucleated RBCs # K/uL Sodium (136-148) mmol/L Potassium (3.5-5.1) mmol/L Chloride (98-107) mmol/L Carbon Dioxide (21.0-32.0) mmol/L BUN (7.0-18.0) mg/dL Creatinine (0.8-1.3) mg/dL Est Cr Clr Drug Dosing mL/min Estimated GFR (MDRD) ml/min Glucose (74-106) mg/dL POC Glucose 100 H 95 (70-99) mg/dL Calcium (8.5-10.1) mg/dL Troponin I 0.103 H* (0.000-0.056) ng/mL C-Reactive Protein (0.00-0.90) mg/dL 02/08/21 02/08/21 02/09/21 Range/Units 18:44 21:23 03:22 WBC 12.50 H (4.0-11.0) K/uL RBC 3.66 L (4.50-5.90) M/uL Hgb 11.0 L (13.0-17.0) g/dL Hct 34.0 L (38.0-50.0) % MCV 92.9 (80.0-98.0) fL MCH 30.1 (27.0-32.0) pg MCHC 32.4 (31.0-37.0) g/dL RDW Std Deviation 56.0 (28.0-62.0) fl RDW Coeff of Shivani 16 H (11.0-15.0) % Plt Count 178 (150-400) K/uL MPV 9.90 (7.40-12.00) fL Neut % (Auto) 82.6 H (48.0-80.0) % Lymph % (Auto) 6.3 L (16.0-40.0) % [place] % (Auto) 9.6 (0.0-15.0) % Eos % (Auto) 1.2 (0.0-7.0) % Baso % (Auto) 0.3 (0.0-1.5) % Neut # (Auto) 10.3 H (1.4-5.7) K/uL Lymph # (Auto) 0.8 (0.6-2.4) K/uL [place] # (Auto) 1.2 H (0.0-0.8) K/uL Eos # (Auto) 0.2 (0.0-0.7) K/uL Baso # (Auto) 0.0 (0.0-0.1) K/uL Nucleated RBC % 0.0 /100WBC Nucleated RBCs # 0 K/uL Sodium (136-148) mmol/L Potassium (3.5-5.1) mmol/L Chloride (98-107) mmol/L Carbon Dioxide (21.0-32.0) mmol/L BUN (7.0-18.0) mg/dL Creatinine (0.8-1.3) mg/dL Est Cr Clr Drug Dosing mL/min Estimated GFR (MDRD) ml/min Glucose (74-106) mg/dL POC Glucose 103 H (70-99) mg/dL Calcium (8.5-10.1) mg/dL Troponin I 0.092 H* (0.000-0.056) ng/mL C-Reactive Protein (0.00-0.90) mg/dL 02/09/21 02/09/21 02/09/21 Range/Units 03:22 03:22 03:22 WBC (4.0-11.0) K/uL RBC (4.50-5.90) M/uL Hgb (13.0-17.0) g/dL Hct (38.0-50.0) % MCV (80.0-98.0) fL MCH (27.0-32.0) pg MCHC (31.0-37.0) g/dL RDW Std Deviation (28.0-62.0) fl RDW Coeff of Shivani (11.0-15.0) % Plt Count (150-400) K/uL MPV (7.40-12.00) fL Neut % (Auto) (48.0-80.0) % Lymph % (Auto) (16.0-40.0) % [place] % (Auto) (0.0-15.0) % Eos % (Auto) (0.0-7.0) % Baso % (Auto) (0.0-1.5) % Neut # (Auto) (1.4-5.7) K/uL Lymph # (Auto) (0.6-2.4) K/uL [place] # (Auto) (0.0-0.8) K/uL Eos # (Auto) (0.0-0.7) K/uL Baso # (Auto) (0.0-0.1) K/uL Nucleated RBC % /100WBC Nucleated RBCs # K/uL Sodium 146 (136-148) mmol/L Potassium 3.3 L (3.5-5.1) mmol/L Chloride 108 H (98-107) mmol/L Carbon Dioxide 32.1 H (21.0-32.0) mmol/L BUN 21 H (7.0-18.0) mg/dL Creatinine 0.8 (0.8-1.3) mg/dL Est Cr Clr Drug Dosing 79.84 mL/min Estimated GFR (MDRD) > 60.0 ml/min Glucose 101 (74-106) mg/dL POC Glucose (70-99) mg/dL Calcium 7.8 L (8.5-10.1) mg/dL Troponin I 0.082 H* (0.000-0.056) ng/mL C-Reactive Protein <0.20 (0.00-0.90) mg/dL Kvng Results Last 24 Hours: Microbiology 02/06/21 12:45 Aerobic Blood Culture - Preliminary Blood - Venous NO GROWTH AFTER 2 DAYS Anaerobic Blood Culture - Preliminary NO GROWTH AFTER 2 DAYS 02/06/21 13:02 Aerobic Blood Culture - Preliminary Blood - Venous - Lab Draw NO GROWTH AFTER 2 DAYS Anaerobic Blood Culture - Preliminary NO GROWTH AFTER 2 DAYS Med Orders - Current: Current Medications Albuterol/Ipratropium (Albuterol/Ipratropium 3.0-0.5 Mg/3 Ml Neb Soln) 3 ml NEB Q4HRRT PRN PRN Reason: Shortness of Breath Last Admin: 02/08/21 17:17 Dose: 3 ml Documented by: Benzocaine/Menthol (Benzocaine/Cetylpyridinium/Menthol Lozenge) 1 lozenge MUCMEM Q2HR PRN PRN Reason: Sore Throat Dextrose/Water (50% Dextrose In Water 50 Ml Syringe) 50 ml IVPUSH ASDIRECTED PRN PRN Reason: Hypoglycemia Furosemide (Furosemide 40 Mg/4 Ml Vial) 40 mg IVPUSH Q12H [facility] Stop: 02/09/21 14:46 Last Admin: 02/09/21 02:38 Dose: 40 mg Documented by: Glucagon (Glucagon,Human Recombinant 1 Mg Vial) 1 mg IM ASDIRECTED PRN PRN Reason: Hypoglycemia Guaifenesin (Guaifenesin 600 Mg Tab.Er) 600 mg PO BID [facility] Last Admin: 02/08/21 21:14 Dose: 600 mg Documented by: Vancomycin HCl 1.5 gm/ Premix 300 mls @ 200 mls/hr IV Q24H [facility] Last Admin: 02/08/21 17:11 Dose: 200 mls/hr Documented by: Norepinephrine Bitartrate (Norepinephr-0.9% Nacl 4 Mg/250) 4 mg in 250 mls @ 7.5 mls/hr IV TITRATE [facility]; Protocol Azithromycin 500 mg/ Sodium (Chloride) 250 mls @ 250 mls/hr IV Q24H [facility] Stop: 02/10/21 17:59 Last Admin: 02/08/21 17:11 Dose: 250 mls/hr Documented by: Ampicillin Sodium/Sulbactam (Sodium 3 gm/ Sodium Chloride) 100 mls @ 200 mls/hr IV Q6H [facility] Last Admin: 02/09/21 08:05 Dose: 200 mls/hr Documented by: Insulin Aspart (Insulin Aspart 100 Units/Ml 3 Ml Pen) 0 unit SUBCUT TIDAC [facility]; Protocol Last Admin: 02/08/21 19:00 Dose: Not Given Documented by: Lorazepam (Lorazepam 2 Mg/Ml Sdv) 2 mg IVPUSH Q2H PRN PRN Reason: Agitation Last Admin: 02/06/21 22:48 Dose: 2 mg Documented by: Vancomycin HCl (Pharmacy To Dose - Vancomycin) 1 dose .XX ASDIRECTED [facility] Discontinued Medications Albuterol/Ipratropium (Albuterol/Ipratropium 3.0-0.5 Mg/3 Ml Neb Soln) Confirm Administered Dose 3 ml .ROUTE .STK-MED ONE Stop: 02/06/21 15:08 Last Admin: 02/06/21 15:47 Dose: Not Given Documented by: Albuterol/Ipratropium (Albuterol/Ipratropium 3.0-0.5 Mg/3 Ml Neb Soln) 3 ml NEB ONETIME ONE Stop: 02/06/21 15:46 Last Admin: 02/06/21 15:47 Dose: 3 ml Documented by: Dexamethasone (Dexamethasone 10 Mg/Ml Sdv) 10 mg IVPUSH ONETIME ONE Stop: 02/06/21 12:06 Last Admin: 02/06/21 12:34 Dose: 10 mg Documented by: Enoxaparin Sodium (Enoxaparin 40 Mg/0.4 Ml Syringe) 40 mg SUBCUT Q12HR [facility] Last Admin: 02/08/21 10:00 Dose: 40 mg Documented by: Furosemide (Furosemide 20 Mg/2 Ml Vial) 20 mg IVPUSH DAILY [facility] Last Admin: 02/08/21 10:00 Dose: 20 mg Documented by: Ceftriaxone Sodium/Dextrose 1 (gm/ Premix) 50 mls @ 100 mls/hr IV ONETIME ONE Stop: 02/06/21 14:25 Last Admin: 02/06/21 14:18 Dose: 100 mls/hr Documented by: Azithromycin 500 mg/ Sodium (Chloride) 250 mls @ 250 mls/hr IV ONETIME [facility] Ampicillin Sodium/Sulbactam (Sodium 3 gm/ Sodium Chloride) 100 mls @ 200 mls/hr IV Q8H [facility] Last Admin: 02/08/21 02:19 Dose: 200 mls/hr Documented by: Iopamidol (Iopamidol 755 Mg/Ml 500 Ml Multipack Bottle) 100 ml IVPUSH ONETIME STA Stop: 02/07/21 23:29 Last Admin: 02/07/21 23:29 Dose: 100 ml Documented by: - Exam Central Line Total Time: 2Days 7Hours Urinary Catheter Total Time: 2Days 11Hours - Patient Data Lab Results Last 24 hrs: Laboratory Results - last 24 hr 02/08/21 02/08/21 02/08/21 Range/Units 10:18 14:48 15:07 WBC (4.0-11.0) K/uL RBC (4.50-5.90) M/uL Hgb (13.0-17.0) g/dL Hct (38.0-50.0) % MCV (80.0-98.0) fL MCH (27.0-32.0) pg MCHC (31.0-37.0) g/dL RDW Std Deviation (28.0-62.0) fl RDW Coeff of Shivani (11.0-15.0) % Plt Count (150-400) K/uL MPV (7.40-12.00) fL Neut % (Auto) (48.0-80.0) % Lymph % (Auto) (16.0-40.0) % [place] % (Auto) (0.0-15.0) % Eos % (Auto) (0.0-7.0) % Baso % (Auto) (0.0-1.5) % Neut # (Auto) (1.4-5.7) K/uL Lymph # (Auto) (0.6-2.4) K/uL [place] # (Auto) (0.0-0.8) K/uL Eos # (Auto) (0.0-0.7) K/uL Baso # (Auto) (0.0-0.1) K/uL Nucleated RBC % /100WBC Nucleated RBCs # K/uL Sodium (136-148) mmol/L Potassium (3.5-5.1) mmol/L Chloride (98-107) mmol/L Carbon Dioxide (21.0-32.0) mmol/L BUN (7.0-18.0) mg/dL Creatinine (0.8-1.3) mg/dL Est Cr Clr Drug Dosing mL/min Estimated GFR (MDRD) ml/min Glucose (74-106) mg/dL POC Glucose 100 H 95 (70-99) mg/dL Calcium (8.5-10.1) mg/dL Troponin I 0.103 H* (0.000-0.056) ng/mL C-Reactive Protein (0.00-0.90) mg/dL 02/08/21 02/08/21 02/09/21 Range/Units 18:44 21:23 03:22 WBC 12.50 H (4.0-11.0) K/uL RBC 3.66 L (4.50-5.90) M/uL Hgb 11.0 L (13.0-17.0) g/dL Hct 34.0 L (38.0-50.0) % MCV 92.9 (80.0-98.0) fL MCH 30.1 (27.0-32.0) pg MCHC 32.4 (31.0-37.0) g/dL RDW Std Deviation 56.0 (28.0-62.0) fl RDW Coeff of Shivani 16 H (11.0-15.0) % Plt Count 178 (150-400) K/uL MPV 9.90 (7.40-12.00) fL Neut % (Auto) 82.6 H (48.0-80.0) % Lymph % (Auto) 6.3 L (16.0-40.0) % [place] % (Auto) 9.6 (0.0-15.0) % Eos % (Auto) 1.2 (0.0-7.0) % Baso % (Auto) 0.3 (0.0-1.5) % Neut # (Auto) 10.3 H (1.4-5.7) K/uL Lymph # (Auto) 0.8 (0.6-2.4) K/uL [place] # (Auto) 1.2 H (0.0-0.8) K/uL Eos # (Auto) 0.2 (0.0-0.7) K/uL Baso # (Auto) 0.0 (0.0-0.1) K/uL Nucleated RBC % 0.0 /100WBC Nucleated RBCs # 0 K/uL Sodium (136-148) mmol/L Potassium (3.5-5.1) mmol/L Chloride (98-107) mmol/L Carbon Dioxide (21.0-32.0) mmol/L BUN (7.0-18.0) mg/dL Creatinine (0.8-1.3) mg/dL Est Cr Clr Drug Dosing mL/min Estimated GFR (MDRD) ml/min Glucose (74-106) mg/dL POC Glucose 103 H (70-99) mg/dL Calcium (8.5-10.1) mg/dL Troponin I 0.092 H* (0.000-0.056) ng/mL C-Reactive Protein (0.00-0.90) mg/dL 02/09/21 02/09/21 02/09/21 Range/Units 03:22 03:22 03:22 WBC (4.0-11.0) K/uL RBC (4.50-5.90) M/uL Hgb (13.0-17.0) g/dL Hct (38.0-50.0) % MCV (80.0-98.0) fL MCH (27.0-32.0) pg MCHC (31.0-37.0) g/dL RDW Std Deviation (28.0-62.0) fl RDW Coeff of Shivani (11.0-15.0) % Plt Count (150-400) K/uL MPV (7.40-12.00) fL Neut % (Auto) (48.0-80.0) % Lymph % (Auto) (16.0-40.0) % [place] % (Auto) (0.0-15.0) % Eos % (Auto) (0.0-7.0) % Baso % (Auto) (0.0-1.5) % Neut # (Auto) (1.4-5.7) K/uL Lymph # (Auto) (0.6-2.4) K/uL [place] # (Auto) (0.0-0.8) K/uL Eos # (Auto) (0.0-0.7) K/uL Baso # (Auto) (0.0-0.1) K/uL Nucleated RBC % /100WBC Nucleated RBCs # K/uL Sodium 146 (136-148) mmol/L Potassium 3.3 L (3.5-5.1) mmol/L Chloride 108 H (98-107) mmol/L Carbon Dioxide 32.1 H (21.0-32.0) mmol/L BUN 21 H (7.0-18.0) mg/dL Creatinine 0.8 (0.8-1.3) mg/dL Est Cr Clr Drug Dosing 79.84 mL/min Estimated GFR (MDRD) > 60.0 ml/min Glucose 101 (74-106) mg/dL POC Glucose (70-99) mg/dL Calcium 7.8 L (8.5-10.1) mg/dL Troponin I 0.082 H* (0.000-0.056) ng/mL C-Reactive Protein <0.20 (0.00-0.90) mg/dL Result Diagrams: 02/09/21 03:22 02/09/21 03:22 Kvng Results Last 24 hrs: Microbiology 02/06/21 12:45 Aerobic Blood Culture - Preliminary Blood - Venous NO GROWTH AFTER 2 DAYS Anaerobic Blood Culture - Preliminary NO GROWTH AFTER 2 DAYS 02/06/21 13:02 Aerobic Blood Culture - Preliminary Blood - Venous - Lab Draw NO GROWTH AFTER 2 DAYS Anaerobic Blood Culture - Preliminary NO GROWTH AFTER 2 DAYS Sepsis Event Note - Evaluation Sepsis Screening Result: Possible Sepsis Risk - Focused Exam Vital Signs: Vital Signs Temp Resp BP Pulse Ox 02/09/21 07:00 16 116/57 L 91 L 02/09/21 06:00 18 109/57 L 92 L 02/09/21 05:00 16 106/57 L 91 L 02/09/21 04:00 97.0 F 14 106/58 L 90 L 02/09/21 03:00 16 113/62 89 L 02/09/21 02:00 17 105/55 L 90 L 02/09/21 01:00 14 100/52 L 89 L 02/09/21 00:00 97.2 F 14 94/53 L 89 L 02/08/21 23:00 15 96/53 L 88 L 02/08/21 22:00 17 96/53 L 88 L 02/08/21 21:00 15 103/56 L 91 L - Assessment Assessment:: Acute respiratory failure likely due to acute pulmonary edema from underlying lung disease. Pt most likely has cor pulmonale. Continue with oxygen supplementation HFNC alternating with bipap as tolerated. lasix prn Abx for possible bacterial pneumonia Pulmonary edema possibly due to cor pulmonale Pt could also have ACS causing the pulm edema. I will check a troponin and a 2 DCHO. Will increase lasix to 40mg IV Q12 x 3 doses. check am BMP Severe COPD and possibly ILD Pt has a 60+ pack yr smoking history. 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 continue with nebs and steroids. 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 DVT prophylaxis. - Plan Plan:: 02/07/21 afebrile /vss/ stable night with improved resp status on bipap// increased peep 14 and fio2 at 70 % / rate 20 min. improved tidal volume 650/ rr 20-32. see abg results 1 and 2. sleeping and ao x2 not answering questions but responds to name . lungs : prolonged wheezes but good air movement . very distant but better ( than yest.) cor. rrr abd benign. neuro : joshi . responds to [pain and voice. lab repeat inf/covid/rsv screen pending. . cbc elavated 17 . hgn dropped mildly . 14.6 plat good. chest xray: small bilateral effusions a with chf and vasc markings though out lung eid. repeat trop pending. telemetry unifcal pvcs seen occasionally . assess: chf with pulm edema acute on chronic suspected. rt sided findings most prominant with pulm edema nd bilatteral pleural effusions. hx of chronic symptoms and copd/emphesema likely . rule out covid neg and immunized for covid and flu. improved with high dose steriods and nebs and bipap with 70% fio2. co2 retention seen likely acute coupled with metabolic acidosis and -b.e. of 8 initially . repeat abg as day goes on . needs echo and repeat trop and bnp . hypotension: better. has good urine output and given lasix this am . bnp 1440. possible pneumonia but not called by radiology . on b.s antibiotics . elevated blood sugars on steroids and monitoring for now check a1c . family updated and code status changed to no code and no intubation. plan cont same and get ct scan lungs if stable for ct scan (rule out p.e. and evaluate pneumonia and chf.) boh
[2021-02-09] MEDS: Albuterol/Ipratropium 3.0-0.5 MG/3 ML Neb Soln NEB PRN (08:20)
[2021-02-09] MEDS: guaiFENesin 600 MG Tab.ER PO SCH (08:20)
[2021-02-09] MEDS ORDERED: Potassium Chloride 20 MEQ Tab.ER PO SCH (09:08)
[2021-02-09] MEDS: Insulin Aspart 100 Units/ML 3 ML Pen SUBCUT SCH ×2 (09:13→12:54)
--- NOTE | 2021-02-09 12:24 | PN ---
TH[facility] Physician - Brief Progress [id number]/29/2021 12:03[facility] Tonya Sandhu, [place] - [facility] SMITH of Service 02/09/2021 12:03HPI/Events of No te eICU readmission [id number] male currently admitted to the ICU for hemoptysis. Patient was o riginally admitted on 02/06/2021 with acute hypoxic respiratory failure thought to be from pneumonia and CHF exacerbation. Patient had work-up done with CT PE which did not reveal any pulmonary embolus but did show bilateral effusions as well as intralobular septal thickening along with linear opacity in the lingula. Patient also was on prophylactic dose Lovenox 40 mg twice daily. Patient has been intermittently on heated high flow and BiPAP for hypoxia as well as work of breathing. Over the past 4 hours patient developed hemoptysis and has had approximately 130 mL of hemoptysis admixed with spu negrita but is mostly blood in content per bedside team without clots.Patient seen on camera, currently o n BiPAP, patient does appear to be tachypneic at this time and able to lay flat in bed currently incl ined.Vital signs reviewedLabs/EMR reviewedAcute hypoxic respiratory failureHemoptysisPneumoniaCHFReco mmendations-Recommend taking patient off BiPAP at this time as he is having hemoptysis. Recommend pl acing on heated high flow nasal cannula-Recommend discussing CODE STATUS with patient/family as he wa s previously documented as DNAR. If patient wishes to be full code recommend initiating transfer to higher level of care with bronchoscopy capabilities (with degree of hypoxia patient will need to be i ntubated for bronch).-If patient continues to have significant mopped assist greater than 150 mL in 2 4 hours or 100 mL within 1 hour recommend proceeding with intubation for airway protection if patient wishes to be full code.-Platelets 178K this morning. Will order PT/INR as well as fibrinogen level. -Recommend obtaining CXR at this time to see if patient has any worsening infiltrates. -Recommend con tinuing Abx to complete course as leukocytosis has improved, can consider procalcitonin to help d/c i f negativeThank you for allowing us to participate in the care of this patient. Please do not hesitat e to contact eICU for any questions, clarification or assistance with implementation of above.Interve ntions Major-Hypoxemia - evaluation and management, Respiratory failure - evaluation and managementIn termediate-Bleeding - evaluation and treatment with blood products
--- NOTE | 2021-02-09 13:21 | PCM.DCSUM1 ---
Discharge Summary - Discharge Data Discharge Date: 02/09/21 Discharge Disposition: DC/Tfer to Acute Hospital 02 Condition: Fair - Referral to Home Health Primary Care Physician: Yoshi Bardales MD - Discharge Diagnosis/Problem(s) (1) CAP (community acquired pneumonia) SNOMED Code(s): 251343267 ICD Code: J18.9 - PNEUMONIA, UNSPECIFIED ORGANISM Status: Acute Current Visit: Yes (2) Massive hemoptysis SNOMED Code(s): 00593297, 65331207 ICD Code: R04.2 - HEMOPTYSIS Status: Acute Current Visit: Yes (3) Acute hypoxemic respiratory failure SNOMED Code(s): 440402581 ICD Code: J96.01 - ACUTE RESPIRATORY FAILURE WITH HYPOXIA Status: Acute Current Visit: Yes (4) CHF (congestive heart failure), NYHA class III SNOMED Code(s): 622039953, 644662185 ICD Code: I50.9 - HEART FAILURE, UNSPECIFIED Status: Acute Priority: High Current Visit: Yes Onset Date: ~02/06/21 Qualifiers: Congestive heart failure type: systolic Congestive heart failure chronicity: acute on chronic Qualified Code(s): I50.23 - Acute on chronic systolic (congestive) heart failure (5) COPD (chronic obstructive pulmonary disease) with emphysema SNOMED Code(s): 97486892 ICD Code: J43.9 - EMPHYSEMA, UNSPECIFIED Status: Acute Priority: High Current Visit: Yes Onset Date: ~02/07/21 Qualifiers: Emphysema type: centrilobular Qualified Code(s): J43.2 - Centrilobular emphysema (6) History of tobacco abuse SNOMED Code(s): 892554263, 545422913 ICD Code: Z87.891 - PERSONAL HISTORY OF NICOTINE DEPENDENCE Status: Acute Current Visit: Yes - Patient Summary/Data Consults: Consultations 02/08/21 14:37 PT Evaluation and Treatment [CONS] Routine Hospital Course: Admission diagnoses Acute hypoxic respiratory failure Acute CHF Acute on chronic COPD exacerbation CAP, possible Discharge diagnoses Massive hemoptysis Acute hypoxic respiratory failure Acute CHF CAP Juan was admitted on 02/06/2021 with acute hypoxic respiratory failure at the time he was pretty lethargic and obtunded. He reports that over the last few months he is becoming more more weak and shortness of breath. He does have history of being a heavy smoker 60+ pack year smoker. Patient has been vaccinated against Covid and flu. 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 On admission BiPAP was started lungs had diffuse wheezes and was given steroids in the ER. Chest x-ray had diffuse interstitial findings patient was started on Solu-Medrol. Patient continued on BiPAP and transition between BiPAP and Vapotherm for oxygenation. Patient was started on Lovenox 40 mg every 12 for elevated D-dimer with inability to get CTA. CTA was obtained yesterday 02/07 which reveals no evidence of pulmonary embolus small to moderate bilateral pleural effusions with interlobular septal thickening suggesting pulmonary edema. Severe central lobar emphysema. Also noted linear opacity within the lingula. He has been treated with broad-spectrum antibiotics including Unasyn, azithromycin and vancomycin. Mediastinal and right hilar adenopathy noted. Last evening 02/08/2021 patient started having hemoptysis. Lovenox placed on hold. Lovenox last dose was noted at 02/08 at 10 AM. Patient overnight was on BiPAP without humidification. This morning patient continued to have significant amounts of hemoptysis upwards of 150 mL in 4 hours. I spoke with the eICU who recommended transfer for possible bronchoscopy and evaluation by pulmonology. I spoke with patient as he was initially noted to be DNR/DNI but patient understands that this is a reversible cause of hemoptysis and is okay at this time being full code and intubated if needed. I spoke with Dr. Salomon ER physician at [facility] along with Dr. Orlando pulmonology regarding potential transfer. Dr. Orlando at this time did not feel like he needed to be intubated that as long as he is able to cough up the sputum and blood that he is able to maintain his airway but and at the point he is not able to then intubation to be indicated. He agrees with transfer at this time due to hemoptysis that is quite significant. Dr. Salomon will be accepting physician and he will evaluate patient at [facility] for bed placement. Dr. Salomon has accepted patient for transfer at this time. Unable to send patient with high amount of oxygen via ground ambulance so we will transfer patient via air due to the high amount of oxygen needed via Vapotherm. Juan was counseled on the need for transfer as well as potential intubation. He is agreeable for transfer and intubation if needed. He understands and has no further questions. I did speak with his sister Magdalena Quach who is living in [place] at this time she was notified of condition change and the need for transfer. She can be reached at [phone]. Patient to be transferred today via air ambulance to [facility]. Care has been discussed in depth with Dr. Guadalupe. - Patient Instructions Diet: NPO - Discharge Plan *PRESCRIPTION DRUG MONITORING PROGRAM REVIEWED*: Not Applicable *COPY OF PRESCRIPTION DRUG MONITORING REPORT IN PATIENT [place]: Not Applicable Home Medications: Home Meds Doxazosin Mesylate [Cardura] 4 mg PO DAILY 02/06/21 [History] acetaZOLAMIDE [Acetazolamide] 500 mg PO DAILY 02/06/21 [History] amLODIPine [Norvasc] 10 mg PO DAILY 02/06/21 [History] atorvaSTATin [Lipitor] 10 mg PO BEDTIME 02/06/21 [History] Dorzolamide HCl/Timolol Maleat [Dorzolamide-Timolol Eye Drops] 1 drop EYERT BID 02/07/21 [History] Latanoprost [Xalatan] 1 drop EYEBOTH BEDTIME 02/07/21 [History] Ampicillin/Sulbactam Na [Unasyn] 3 gm IV Q6H adv 02/09/21 [Rx] Azithromycin [Zithromax] 500 mg IV Q24H vial 02/09/21 [Rx] VANCOmycin 1.5 GM/300 ML 1.5 gm IV Q24H bag 02/09/21 [Rx] Oxygen Therapy Mode: Vapotherm Patient Handouts: Hypoxia, Heart Failure, Self-Care, [id number], Heart Failure, Diagnosis, [id number], Community-Acquired Pneumonia, Adult, [id number] Forms: ED Department Discharge Referrals: Yoshi Bardales MD [Primary Care Provider] - - Discharge Summary/Plan Comment DC Time >30 min.: Yes Total # of Minutes for Discharge Time: 35 - Patient Data Vitals - Most Recent: Last Vital Signs Temp 98.4 F 02/09/21 08:00 Pulse 67 02/06/21 19:00 Resp 19 02/09/21 09:00 BP 113/56 L 02/09/21 09:00 Pulse Ox 88 L 02/09/21 09:00 Weight - Most Recent: 88.2 kg I&O - Last 24 hours: Intake & Output 02/08/21 02/09/21 02/09/21 22:59 06:59 14:59 Intake Total 1270 520 Output Total 1999 2300 Balance -730 -7430 Lab Results - Last 24 hrs: Laboratory Results - last 24 hr 02/08/21 02/08/21 02/08/21 Range/Units 14:48 15:07 18:44 WBC (4.0-11.0) K/uL RBC (4.50-5.90) M/uL Hgb (13.0-17.0) g/dL Hct (38.0-50.0) % MCV (80.0-98.0) fL MCH (27.0-32.0) pg MCHC (31.0-37.0) g/dL RDW Std Deviation (28.0-62.0) fl RDW Coeff of Shivani (11.0-15.0) % Plt Count (150-400) K/uL MPV (7.40-12.00) fL Neut % (Auto) (48.0-80.0) % Lymph % (Auto) (16.0-40.0) % Hughes % (Auto) (0.0-15.0) % Eos % (Auto) (0.0-7.0) % Baso % (Auto) (0.0-1.5) % Neut # (Auto) (1.4-5.7) K/uL Lymph # (Auto) (0.6-2.4) K/uL Hughes # (Auto) (0.0-0.8) K/uL Eos # (Auto) (0.0-0.7) K/uL Baso # (Auto) (0.0-0.1) K/uL Nucleated RBC % /100WBC Nucleated RBCs # K/uL Sodium (136-148) mmol/L Potassium (3.5-5.1) mmol/L Chloride (98-107) mmol/L Carbon Dioxide (21.0-32.0) mmol/L BUN (7.0-18.0) mg/dL Creatinine (0.8-1.3) mg/dL Est Cr Clr Drug Dosing mL/min Estimated GFR (MDRD) ml/min Glucose (74-106) mg/dL POC Glucose 95 103 H (70-99) mg/dL Calcium (8.5-10.1) mg/dL Troponin I 0.103 H* (0.000-0.056) ng/mL C-Reactive Protein (0.00-0.90) mg/dL 02/08/21 02/09/21 02/09/21 Range/Units 21:23 03:22 03:22 WBC 12.50 H (4.0-11.0) K/uL RBC 3.66 L (4.50-5.90) M/uL Hgb 11.0 L (13.0-17.0) g/dL Hct 34.0 L (38.0-50.0) % MCV 92.9 (80.0-98.0) fL MCH 30.1 (27.0-32.0) pg MCHC 32.4 (31.0-37.0) g/dL RDW Std Deviation 56.0 (28.0-62.0) fl RDW Coeff of Shivani 16 H (11.0-15.0) % Plt Count 178 (150-400) K/uL MPV 9.90 (7.40-12.00) fL Neut % (Auto) 82.6 H (48.0-80.0) % Lymph % (Auto) 6.3 L (16.0-40.0) % Hughes % (Auto) 9.6 (0.0-15.0) % Eos % (Auto) 1.2 (0.0-7.0) % Baso % (Auto) 0.3 (0.0-1.5) % Neut # (Auto) 10.3 H (1.4-5.7) K/uL Lymph # (Auto) 0.8 (0.6-2.4) K/uL Hughes # (Auto) 1.2 H (0.0-0.8) K/uL Eos # (Auto) 0.2 (0.0-0.7) K/uL Baso # (Auto) 0.0 (0.0-0.1) K/uL Nucleated RBC % 0.0 /100WBC Nucleated RBCs # 0 K/uL Sodium (136-148) mmol/L Potassium (3.5-5.1) mmol/L Chloride (98-107) mmol/L Carbon Dioxide (21.0-32.0) mmol/L BUN (7.0-18.0) mg/dL Creatinine (0.8-1.3) mg/dL Est Cr Clr Drug Dosing mL/min Estimated GFR (MDRD) ml/min Glucose (74-106) mg/dL POC Glucose (70-99) mg/dL Calcium (8.5-10.1) mg/dL Troponin I 0.092 H* (0.000-0.056) ng/mL C-Reactive Protein <0.20 (0.00-0.90) mg/dL 02/09/21 02/09/21 02/09/21 Range/Units 03:22 03:22 08:35 WBC (4.0-11.0) K/uL RBC (4.50-5.90) M/uL Hgb (13.0-17.0) g/dL Hct (38.0-50.0) % MCV (80.0-98.0) fL MCH (27.0-32.0) pg MCHC (31.0-37.0) g/dL RDW Std Deviation (28.0-62.0) fl RDW Coeff of Shivani (11.0-15.0) % Plt Count (150-400) K/uL MPV (7.40-12.00) fL Neut % (Auto) (48.0-80.0) % Lymph % (Auto) (16.0-40.0) % Hughes % (Auto) (0.0-15.0) % Eos % (Auto) (0.0-7.0) % Baso % (Auto) (0.0-1.5) % Neut # (Auto) (1.4-5.7) K/uL Lymph # (Auto) (0.6-2.4) K/uL Hughes # (Auto) (0.0-0.8) K/uL Eos # (Auto) (0.0-0.7) K/uL Baso # (Auto) (0.0-0.1) K/uL Nucleated RBC % /100WBC Nucleated RBCs # K/uL Sodium 146 (136-148) mmol/L Potassium 3.3 L (3.5-5.1) mmol/L Chloride 108 H (98-107) mmol/L Carbon Dioxide 32.1 H (21.0-32.0) mmol/L BUN 21 H (7.0-18.0) mg/dL Creatinine 0.8 (0.8-1.3) mg/dL Est Cr Clr Drug Dosing 79.84 mL/min Estimated GFR (MDRD) > 60.0 ml/min Glucose 101 (74-106) mg/dL POC Glucose 101 H (70-99) mg/dL Calcium 7.8 L (8.5-10.1) mg/dL Troponin I 0.082 H* (0.000-0.056) ng/mL C-Reactive Protein (0.00-0.90) mg/dL ERMIAS Results - Last 24 hrs: Microbiology 02/06/21 12:45 Aerobic Blood Culture - Preliminary Blood - Venous NO GROWTH AFTER 3 DAYS Anaerobic Blood Culture - Preliminary NO GROWTH AFTER 3 DAYS 02/06/21 13:02 Aerobic Blood Culture - Preliminary Blood - Venous - Lab Draw NO GROWTH AFTER 3 DAYS Anaerobic Blood Culture - Preliminary NO GROWTH AFTER 3 DAYS Med Orders - Current: Current Medications Albuterol/Ipratropium (Albuterol/Ipratropium 3.0-0.5 Mg/3 Ml Neb Soln) 3 ml NEB Q4HRRT PRN PRN Reason: Shortness of Breath Last Admin: 02/09/21 08:20 Dose: 3 ml Documented by: Benzocaine/Menthol (Benzocaine/Cetylpyridinium/Menthol Lozenge) 1 lozenge MUCMEM Q2HR PRN PRN Reason: Sore Throat Dextrose/Water (50% Dextrose In Water 50 Ml Syringe) 50 ml IVPUSH ASDIRECTED PRN PRN Reason: Hypoglycemia Furosemide (Furosemide 40 Mg/4 Ml Vial) 40 mg IVPUSH BIDDIURETIC JAY Glucagon (Glucagon,Human Recombinant 1 Mg Vial) 1 mg IM ASDIRECTED PRN PRN Reason: Hypoglycemia Guaifenesin (Guaifenesin 600 Mg Tab.Er) 600 mg PO BID JAY Last Admin: 02/09/21 08:20 Dose: 600 mg Documented by: Vancomycin HCl 1.5 gm/ Premix 300 mls @ 200 mls/hr IV Q24H JAY Last Admin: 02/08/21 17:11 Dose: 200 mls/hr Documented by: Azithromycin 500 mg/ Sodium (Chloride) 250 mls @ 250 mls/hr IV Q24H [facility] Stop: 02/10/21 17:59 Last Admin: 02/08/21 17:11 Dose: 250 mls/hr Documented by: Ampicillin Sodium/Sulbactam (Sodium 3 gm/ Sodium Chloride) 100 mls @ 200 mls/hr IV Q6H [facility] Last Admin: 02/09/21 08:05 Dose: 200 mls/hr Documented by: Insulin Aspart (Insulin Aspart 100 Units/Ml 3 Ml Pen) 0 unit SUBCUT TIDAC [facility]; Protocol Last Admin: 02/09/21 12:54 Dose: Not Given Documented by: Lorazepam (Lorazepam 2 Mg/Ml Sdv) 2 mg IVPUSH Q2H PRN PRN Reason: Agitation Last Admin: 02/06/21 22:48 Dose: 2 mg Documented by: Potassium Chloride (Potassium Chloride 20 Meq Tab.Er) 40 meq PO BIDMEALS [facility] Stop: 02/09/21 17:01 Last Admin: 02/09/21 09:15 Dose: 40 meq Documented by: Vancomycin HCl (Pharmacy To Dose - Vancomycin) 1 dose .XX ASDIRECTED [facility] Discontinued Medications Albuterol/Ipratropium (Albuterol/Ipratropium 3.0-0.5 Mg/3 Ml Neb Soln) Confirm Administered Dose 3 ml .ROUTE .STK-MED ONE Stop: 02/06/21 15:08 Last Admin: 02/06/21 15:47 Dose: Not Given Documented by: Albuterol/Ipratropium (Albuterol/Ipratropium 3.0-0.5 Mg/3 Ml Neb Soln) 3 ml NEB ONETIME ONE Stop: 02/06/21 15:46 Last Admin: 02/06/21 15:47 Dose: 3 ml Documented by: Dexamethasone (Dexamethasone 10 Mg/Ml Sdv) 10 mg IVPUSH ONETIME ONE Stop: 02/06/21 12:06 Last Admin: 02/06/21 12:34 Dose: 10 mg Documented by: Enoxaparin Sodium (Enoxaparin 40 Mg/0.4 Ml Syringe) 40 mg SUBCUT Q12HR [facility] Last Admin: 02/08/21 10:00 Dose: 40 mg Documented by: Furosemide (Furosemide 20 Mg/2 Ml Vial) 20 mg IVPUSH DAILY [facility] Last Admin: 02/08/21 10:00 Dose: 20 mg Documented by: Furosemide (Furosemide 40 Mg/4 Ml Vial) 40 mg IVPUSH Q12H JAY Stop: 02/09/21 14:46 Last Admin: 02/09/21 02:38 Dose: 40 mg Documented by: Ceftriaxone Sodium/Dextrose 1 (gm/ Premix) 50 mls @ 100 mls/hr IV ONETIME ONE Stop: 02/06/21 14:25 Last Admin: 02/06/21 14:18 Dose: 100 mls/hr Documented by: Azithromycin 500 mg/ Sodium (Chloride) 250 mls @ 250 mls/hr IV ONETIME JAY Ampicillin Sodium/Sulbactam (Sodium 3 gm/ Sodium Chloride) 100 mls @ 200 mls/hr IV Q8H [facility] Last Admin: 02/08/21 02:19 Dose: 200 mls/hr Documented by: Norepinephrine Bitartrate (Norepinephr-0.9% Nacl 4 Mg/250) 4 mg in 250 mls @ 7.5 mls/hr IV TITRATE JAY; Protocol Iopamidol (Iopamidol 755 Mg/Ml 500 Ml Multipack Bottle) 100 ml IVPUSH ONETIME STA Stop: 02/07/21 23:29 Last Admin: 02/07/21 23:29 Dose: 100 ml Documented by: - Exam Quality Assessment: Reports: Supplemental Oxygen General: Reports: Alert, Oriented, Cooperative Lungs: Reports: Crackles, Rhonchi, Other (gross hemoptysis noted) Cardiovascular: Reports: Regular Rate, Regular Rhythm GI/Abdominal Exam: Normal Bowel Sounds, Soft, Non-Tender Neurological: Reports: No New Focal Deficit Psy/Mental Status: Reports: Alert, Normal Affect, Normal Mood
--- NOTE | 2021-02-09 13:40 | CR ---
INDICATION: Hemoptysis TECHNIQUE: Chest radiograph 1 view COMPARISON: 02/06/2021 FINDINGS: Mediastinum: The heart silhouette is difficult to evaluate given the degree of left lung basilar consolidation. Right IJ line is noted without change. Lung: New consolidation in the left lung base is present with reticulonodular infiltrates seen in the left midlung zone and moderate left pleural effusion seen. The reticulonodular interstitial infiltrates in the right mid lower lung zone seen on prior exam have substantially decreased. Trace right pleural effusion is noted without change. No pneumothorax is identified. Bone and Soft tissue: Unremarkable for age. IMPRESSIONS: 1. New consolidation in the left lung base is present with reticulonodular infiltrates seen in the left midlung zone and moderate left pleural effusion seen. 2. The reticulonodular interstitial infiltrates in the right mid lower lung zone seen on prior exam have substantially decreased. Dictated by Dimitry Corral MD @ 02/09/2021 1:38:44 PM Dictated by: Dimitry Corral MD @ 02/09/2021 13:38:47 (Electronically Signed)
[2021-02-09] MEDS ORDERED: Pantoprazole 40 MG/10 ML Syringe IVPUSH SCH (14:00)
[2021-02-09] MEDS ORDERED: Furosemide 40 MG/4 ML VIAL IVPUSH SCH (14:00)
== END 2021-02-09 16:20 | DRG 193 ==
LOC: MW.ED 11:53 → MW.ICU 16:15
PROVIDERS: ADMIT Pediatrics; ATTEND Pediatrics
PROC: 02HV33Z Insertion of Infusion Device into Superior Vena Cava, Percutaneous Approach (ICD-10-PCS; principal; 2021-02-06)
PROC: 5A09357 Assistance with Respiratory Ventilation, Less than 24 Consecutive Hours, Continuous Positive Airway Pressure (ICD-10-PCS; 2021-02-06)
DX: J18.9 Pneumonia, unspecified organism (principal); R09.02 Hypoxemia; J96.01 Acute respiratory failure with hypoxia; I50.23 Acute on chronic systolic (congestive) heart failure; R04.2 Hemoptysis; J43.2 Centrilobular emphysema; E78.00 Pure hypercholesterolemia, unspecified; Z20.822 Contact with and (suspected) exposure to COVID-19; I10 Essential (primary) hypertension; Z79.899 Other long term (current) drug therapy; Z87.891 Personal history of nicotine dependence
CPT/HCPCS: 0241U; 36415; 36600; 51702; 70450; 71045; 71275; 80048; 80053; 81003; 82550; 82803; 82947; 83605; 83690; 83735; 83880; 84100; 84484; 85025; 85379; 85384; 85610; 86140; 87040; 93005; 93306; 94660; 96374; 97162; 97530; 99285; 36556; 99100; A9270-GY; C9113; J0295; J0456; J0696; J1100; J1650; J1940; J2060; J3370; J7050; J7620-GY; Q9967; U0002

== ENCOUNTER 2021-03-10 03:27 | Inpatient (IN) | payer MEDICARE, MEDICAID ==
[2021-03-10] MEDS ORDERED: Albuterol/Ipratropium 3.0-0.5 MG/3 ML Neb Soln NEB ONE (03:38)
[2021-03-10] MEDS ORDERED: Sodium Chloride 0.9% 1,000 ML IV ONE (03:38)
[2021-03-10] MEDS ORDERED: methylPREDNISolone Sodium Succinate 125 MG/2 ML SDV IVPUSH ONE (03:38)
[2021-03-10 04:12] LABS: BLOOD UREA NITROGEN,BUN 22 mg/dL (7.0-18.0); CARBON DIOXIDE,CO2 30.1 mmol/L (21.0-32.0); CHLORIDE,CL 105 mmol/L (98-107); GLUCOSE RANDOM 133 mg/dL (74-106); POTASSIUM,K 4.2 mmol/L (3.5-5.1); SODIUM,NA 142 mmol/L (136-148)
[2021-03-10] MEDS ORDERED: Cefepime 2 GM in Premix Bag 1 BAG IV ONE (04:28)
[2021-03-10 05:50] LABS: CORONAVIRUS COVID-19 NAA NEGATIVE (NEGATIVE); INFLUENZA A NAA NEGATIVE (NEGATIVE); INFLUENZA B NAA NEGATIVE (NEGATIVE)
[2021-03-10] MEDS ORDERED: Iopamidol 755 MG/ML 500 ML Multipack Bottle IVPUSH STA (05:53)
[2021-03-10] MEDS ORDERED: Acetaminophen 325 MG Tab PO PRN (07:49)
[2021-03-10] MEDS ORDERED: Ondansetron 4 MG Tab.DIS PO PRN (07:49)
[2021-03-10] MEDS ORDERED: Ondansetron 4 MG/2 ML SDV IVPUSH PRN (07:49)
[2021-03-10] MEDS ORDERED: Docusate Sodium 100 MG Cap PO PRN (07:49)
[2021-03-10] MEDS ORDERED: methylPREDNISolone Sodium Succinate 125 MG/2 ML SDV IVPUSH SCH (08:00)
[2021-03-10] MEDS ORDERED: acetaZOLAMIDE 250 MG Tab PO SCH (09:00)
[2021-03-10] MEDS ORDERED: Doxazosin 4 MG Tab PO SCH (09:00)
[2021-03-10] MEDS: Albuterol/Ipratropium 3.0-0.5 MG/3 ML Neb Soln NEB SCH ×4 (10:03→22:56)
[2021-03-10] MEDS: amLODIPine 5 MG Tab PO SCH (10:49)
[2021-03-10] MEDS: Dorzolamide/Timolol 2%-0.5% Ophth Soln 10 ML Bottle EYERT SCH ×2 (10:52→20:47)
[2021-03-10] MEDS: Enoxaparin 40 MG/0.4 ML Syringe SUBCUT SCH (10:55)
[2021-03-10] MEDS: methylPREDNISolone Sodium Succinate 40 MG/1 ML SDV IVPUSH SCH ×2 (11:41→19:52)
[2021-03-10] MEDS: Levofloxacin/Dextrose 5%-Water 750 MG in Premix Bag 1 BAG IV SCH (11:45)
[2021-03-10] MEDS: VANCOmycin 1.25 GM/250 ML 1.25 GM in Premix Bag 1 BAG IV SCH (13:19)
[2021-03-10] MEDS: atorvaSTATin 10 MG Tab PO SCH (20:48)
[2021-03-10] MEDS: Doxazosin 4 MG Tab PO SCH (20:48)
[2021-03-10] MEDS: LATANOPROST 0.005% EYEBOTH SCH (20:52)
[2021-03-11] MEDS: Albuterol/Ipratropium 3.0-0.5 MG/3 ML Neb Soln NEB SCH ×6 (02:27→21:48)
[2021-03-11] MEDS: methylPREDNISolone Sodium Succinate 40 MG/1 ML SDV IVPUSH SCH ×3 (04:20→21:10)
[2021-03-11] MEDS: VANCOmycin 1.25 GM/250 ML 1.25 GM in Premix Bag 1 BAG IV SCH (06:38)
[2021-03-11 08:02] LABS: BLOOD UREA NITROGEN,BUN 20 mg/dL (7.0-18.0); CARBON DIOXIDE,CO2 25.5 mmol/L (21.0-32.0); CHLORIDE,CL 104 mmol/L (98-107); GLUCOSE RANDOM 148 mg/dL (74-106); POTASSIUM,K 3.5 mmol/L (3.5-5.1); SODIUM,NA 141 mmol/L (136-148)
[2021-03-11] MEDS: Enoxaparin 40 MG/0.4 ML Syringe SUBCUT SCH (08:44)
[2021-03-11] MEDS: amLODIPine 5 MG Tab PO SCH (08:45)
[2021-03-11] MEDS: Dorzolamide/Timolol 2%-0.5% Ophth Soln 10 ML Bottle EYERT SCH ×2 (08:50→21:09)
[2021-03-11] MEDS: Levofloxacin/Dextrose 5%-Water 750 MG in Premix Bag 1 BAG IV SCH (11:08)
[2021-03-11] MEDS: Fluticasone/Salmeterol 250-50 MCG Inhalation Powder 14/Diskus INH SCH ×2 (14:15→21:08)
[2021-03-11] MEDS: atorvaSTATin 10 MG Tab PO SCH (21:04)
[2021-03-11] MEDS: LATANOPROST 0.005% EYEBOTH SCH (21:08)
[2021-03-12] MEDS: Doxazosin 4 MG Tab PO SCH ×2 (00:10→21:16)
[2021-03-12] MEDS: VANCOmycin 1.25 GM/250 ML 1.25 GM in Premix Bag 1 BAG IV SCH ×2 (00:12→21:08)
[2021-03-12] MEDS: Albuterol/Ipratropium 3.0-0.5 MG/3 ML Neb Soln NEB SCH ×6 (05:28→23:26)
[2021-03-12] MEDS: methylPREDNISolone Sodium Succinate 40 MG/1 ML SDV IVPUSH SCH ×3 (05:30→20:59)
[2021-03-12 08:40] LABS: BLOOD UREA NITROGEN,BUN 22 mg/dL (7.0-18.0); CARBON DIOXIDE,CO2 26.4 mmol/L (21.0-32.0); CHLORIDE,CL 104 mmol/L (98-107); GLUCOSE RANDOM 138 mg/dL (74-106); POTASSIUM,K 3.4 mmol/L (3.5-5.1); SODIUM,NA 139 mmol/L (136-148)
[2021-03-12] MEDS: Fluticasone/Salmeterol 250-50 MCG Inhalation Powder 14/Diskus INH SCH ×2 (09:43→21:23)
[2021-03-12] MEDS: Heparin Sodium 5,000 Units/ML Vial SUBCUT SCH ×2 (09:51→21:20)
[2021-03-12] MEDS: amLODIPine 5 MG Tab PO SCH (09:51)
[2021-03-12] MEDS: Levofloxacin/Dextrose 5%-Water 750 MG in Premix Bag 1 BAG IV SCH (09:52)
[2021-03-12] MEDS: Dorzolamide/Timolol 2%-0.5% Ophth Soln 10 ML Bottle EYERT SCH ×2 (09:53→21:14)
[2021-03-12] MEDS: LATANOPROST 0.005% EYEBOTH SCH (21:05)
[2021-03-12] MEDS: atorvaSTATin 10 MG Tab PO SCH (21:15)
[2021-03-12] MEDS ORDERED: Piperacillin/Tazobactam 4.5 GM in Sodium Chloride 0.9% 100 ML IV ONE (22:15)
[2021-03-12] MEDS ORDERED: Potassium Chloride 20 MEQ Tab.ER PO ONE (22:21)
[2021-03-12] MEDS: Calcium Carbonate 500 MG Tab.Chew PO PRN (23:25)
[2021-03-13] MEDS: Calcium Carbonate 500 MG Tab.Chew PO PRN (02:53)
[2021-03-13] MEDS: Albuterol/Ipratropium 3.0-0.5 MG/3 ML Neb Soln NEB SCH ×6 (02:53→21:32)
[2021-03-13] MEDS: methylPREDNISolone Sodium Succinate 40 MG/1 ML SDV IVPUSH SCH ×3 (05:02→21:32)
[2021-03-13] MEDS ORDERED: Piperacillin/Tazobactam 3.375 GM in Sodium Chloride 0.9% 50 ML IV SCH (08:00)
[2021-03-13 09:00] LABS: BLOOD UREA NITROGEN,BUN 26 mg/dL (7.0-18.0); CARBON DIOXIDE,CO2 26.7 mmol/L (21.0-32.0); CHLORIDE,CL 105 mmol/L (98-107); GLUCOSE RANDOM 168 mg/dL (74-106); POTASSIUM,K 3.3 mmol/L (3.5-5.1); SODIUM,NA 142 mmol/L (136-148)
[2021-03-13] MEDS: Fluticasone/Salmeterol 250-50 MCG Inhalation Powder 14/Diskus INH SCH ×2 (09:27→21:32)
[2021-03-13] MEDS: amLODIPine 5 MG Tab PO SCH (09:39)
[2021-03-13] MEDS: Heparin Sodium 5,000 Units/ML Vial SUBCUT SCH ×2 (09:40→21:32)
[2021-03-13] MEDS: Levofloxacin/Dextrose 5%-Water 750 MG in Premix Bag 1 BAG IV SCH (09:43)
[2021-03-13] MEDS ORDERED: Potassium Chloride 20 MEQ Tab.ER PO ONE ×2 (10:00→10:35)
[2021-03-13] MEDS: Dorzolamide/Timolol 2%-0.5% Ophth Soln 10 ML Bottle EYERT SCH ×2 (10:18→21:34)
[2021-03-13] MEDS ORDERED: Azithromycin 500 MG in Sodium Chloride 0.9% 250 ML IV SCH (10:30)
[2021-03-13] MEDS: Piperacillin/Tazobactam 3.375 GM in Sodium Chloride 0.9% 50 ML IV SCH ×2 (11:36→18:54)
[2021-03-13] MEDS: VANCOmycin 1.25 GM/250 ML 1.25 GM in Premix Bag 1 BAG IV SCH (15:23)
[2021-03-13] MEDS: atorvaSTATin 10 MG Tab PO SCH (21:32)
[2021-03-13] MEDS: Doxazosin 4 MG Tab PO SCH (21:33)
[2021-03-13] MEDS: LATANOPROST 0.005% EYEBOTH SCH (21:33)
[2021-03-14] MEDS: Piperacillin/Tazobactam 3.375 GM in Sodium Chloride 0.9% 50 ML IV SCH ×3 (02:47→18:05)
[2021-03-14] MEDS: Albuterol/Ipratropium 3.0-0.5 MG/3 ML Neb Soln NEB SCH ×6 (02:48→22:24)
[2021-03-14] MEDS: VANCOmycin 1.25 GM/250 ML 1.25 GM in Premix Bag 1 BAG IV SCH ×2 (06:12→23:45)
[2021-03-14] MEDS: methylPREDNISolone Sodium Succinate 40 MG/1 ML SDV IVPUSH SCH ×3 (06:12→20:37)
[2021-03-14 08:08] LABS: BLOOD UREA NITROGEN,BUN 35 mg/dL (7.0-18.0); CARBON DIOXIDE,CO2 24.3 mmol/L (21.0-32.0); CHLORIDE,CL 108 mmol/L (98-107); GLUCOSE RANDOM 161 mg/dL (74-106); POTASSIUM,K 3.8 mmol/L (3.5-5.1); SODIUM,NA 141 mmol/L (136-148)
[2021-03-14] MEDS: Azithromycin 500 MG in Sodium Chloride 0.9% 250 ML IV SCH (09:16)
[2021-03-14] MEDS: Heparin Sodium 5,000 Units/ML Vial SUBCUT SCH ×2 (09:24→20:37)
[2021-03-14] MEDS: amLODIPine 5 MG Tab PO SCH ×2 (09:27→09:57)
[2021-03-14] MEDS: Fluticasone/Salmeterol 250-50 MCG Inhalation Powder 14/Diskus INH SCH ×2 (09:27→20:39)
[2021-03-14] MEDS: Dorzolamide/Timolol 2%-0.5% Ophth Soln 10 ML Bottle EYERT SCH ×2 (09:33→20:45)
[2021-03-14] MEDS ORDERED: Loperamide 2 MG Cap PO ONE (17:56)
[2021-03-14] MEDS: Calcium Carbonate 500 MG Tab.Chew PO PRN (18:04)
[2021-03-14] MEDS: atorvaSTATin 10 MG Tab PO SCH (20:38)
[2021-03-14] MEDS: Doxazosin 4 MG Tab PO SCH (20:38)
[2021-03-14] MEDS: LATANOPROST 0.005% EYEBOTH SCH (20:45)
[2021-03-15] MEDS: Albuterol/Ipratropium 3.0-0.5 MG/3 ML Neb Soln NEB SCH ×6 (02:49→22:15)
[2021-03-15] MEDS: Piperacillin/Tazobactam 3.375 GM in Sodium Chloride 0.9% 50 ML IV SCH ×3 (02:49→18:46)
[2021-03-15] MEDS: methylPREDNISolone Sodium Succinate 40 MG/1 ML SDV IVPUSH SCH ×3 (04:50→21:14)
[2021-03-15 07:00] LABS: BLOOD UREA NITROGEN,BUN 32 mg/dL (7.0-18.0); CARBON DIOXIDE,CO2 27.6 mmol/L (21.0-32.0); CHLORIDE,CL 108 mmol/L (98-107); GLUCOSE RANDOM 154 mg/dL (74-106); POTASSIUM,K 3.5 mmol/L (3.5-5.1); SODIUM,NA 142 mmol/L (136-148)
[2021-03-15] MEDS: amLODIPine 5 MG Tab PO SCH (08:49)
[2021-03-15] MEDS: Heparin Sodium 5,000 Units/ML Vial SUBCUT SCH ×2 (08:53→21:12)
[2021-03-15] MEDS: Fluticasone/Salmeterol 250-50 MCG Inhalation Powder 14/Diskus INH SCH ×2 (08:56→21:10)
[2021-03-15] MEDS: Dorzolamide/Timolol 2%-0.5% Ophth Soln 10 ML Bottle EYERT SCH ×2 (08:57→21:07)
[2021-03-15] MEDS: Azithromycin 500 MG in Sodium Chloride 0.9% 250 ML IV SCH (08:58)
[2021-03-15] MEDS: VANCOmycin 1.25 GM/250 ML 1.25 GM in Premix Bag 1 BAG IV SCH (17:31)
[2021-03-15] MEDS: atorvaSTATin 10 MG Tab PO SCH (21:09)
[2021-03-15] MEDS: Doxazosin 4 MG Tab PO SCH (21:09)
[2021-03-15] MEDS: LATANOPROST 0.005% EYEBOTH SCH (21:17)
[2021-03-15] MEDS: Calcium Carbonate 500 MG Tab.Chew PO PRN (22:19)
[2021-03-16] MEDS: Albuterol/Ipratropium 3.0-0.5 MG/3 ML Neb Soln NEB SCH ×6 (01:50→20:32)
[2021-03-16] MEDS: Piperacillin/Tazobactam 3.375 GM in Sodium Chloride 0.9% 50 ML IV SCH ×3 (02:51→18:40)
[2021-03-16] MEDS: methylPREDNISolone Sodium Succinate 40 MG/1 ML SDV IVPUSH SCH ×3 (03:31→20:27)
[2021-03-16 08:13] LABS: BLOOD UREA NITROGEN,BUN 36 mg/dL (7.0-18.0); CARBON DIOXIDE,CO2 27.6 mmol/L (21.0-32.0); CHLORIDE,CL 111 mmol/L (98-107); GLUCOSE RANDOM 171 mg/dL (74-106); POTASSIUM,K 3.7 mmol/L (3.5-5.1); SODIUM,NA 144 mmol/L (136-148)
[2021-03-16] MEDS: amLODIPine 5 MG Tab PO SCH (08:45)
[2021-03-16] MEDS: Fluticasone/Salmeterol 250-50 MCG Inhalation Powder 14/Diskus INH SCH ×2 (08:46→20:27)
[2021-03-16] MEDS: Dorzolamide/Timolol 2%-0.5% Ophth Soln 10 ML Bottle EYERT SCH ×2 (08:47→20:28)
[2021-03-16] MEDS: Heparin Sodium 5,000 Units/ML Vial SUBCUT SCH ×2 (08:47→20:27)
[2021-03-16] MEDS: Azithromycin 500 MG in Sodium Chloride 0.9% 250 ML IV SCH (09:35)
[2021-03-16] MEDS: VANCOmycin 1.25 GM/250 ML 1.25 GM in Premix Bag 1 BAG IV SCH (12:30)
[2021-03-16] MEDS: atorvaSTATin 10 MG Tab PO SCH (20:23)
[2021-03-16] MEDS: Doxazosin 4 MG Tab PO SCH (20:23)
[2021-03-16] MEDS: LATANOPROST 0.005% EYEBOTH SCH (20:24)
[2021-03-16] MEDS: Calcium Carbonate 500 MG Tab.Chew PO PRN (20:26)
[2021-03-17] MEDS: Albuterol/Ipratropium 3.0-0.5 MG/3 ML Neb Soln NEB SCH ×7 (01:19→21:01)
[2021-03-17] MEDS: methylPREDNISolone Sodium Succinate 40 MG/1 ML SDV IVPUSH SCH ×3 (04:01→21:01)
[2021-03-17] MEDS: Piperacillin/Tazobactam 3.375 GM in Sodium Chloride 0.9% 50 ML IV SCH ×3 (04:01→18:12)
[2021-03-17] MEDS: VANCOmycin 1.25 GM/250 ML 1.25 GM in Premix Bag 1 BAG IV SCH (05:31)
[2021-03-17 07:01] LABS: BLOOD UREA NITROGEN,BUN 36 mg/dL (7.0-18.0); CARBON DIOXIDE,CO2 28.8 mmol/L (21.0-32.0); CHLORIDE,CL 112 mmol/L (98-107); GLUCOSE RANDOM 162 mg/dL (74-106); POTASSIUM,K 3.6 mmol/L (3.5-5.1); SODIUM,NA 145 mmol/L (136-148)
[2021-03-17] MEDS: Fluticasone/Salmeterol 250-50 MCG Inhalation Powder 14/Diskus INH SCH ×2 (09:07→21:02)
[2021-03-17] MEDS: amLODIPine 5 MG Tab PO SCH (09:43)
[2021-03-17] MEDS: Dorzolamide/Timolol 2%-0.5% Ophth Soln 10 ML Bottle EYERT SCH ×2 (09:45→21:03)
[2021-03-17] MEDS: Heparin Sodium 5,000 Units/ML Vial SUBCUT SCH ×2 (09:45→21:01)
[2021-03-17] MEDS: Azithromycin 500 MG in Sodium Chloride 0.9% 250 ML IV SCH (09:49)
[2021-03-17] MEDS: atorvaSTATin 10 MG Tab PO SCH (21:01)
[2021-03-17] MEDS: Doxazosin 4 MG Tab PO SCH (21:01)
[2021-03-17] MEDS: LATANOPROST 0.005% EYEBOTH SCH (21:02)
[2021-03-18] MEDS: Albuterol/Ipratropium 3.0-0.5 MG/3 ML Neb Soln NEB SCH ×6 (02:37→21:21)
[2021-03-18] MEDS: Piperacillin/Tazobactam 3.375 GM in Sodium Chloride 0.9% 50 ML IV SCH ×3 (02:37→18:36)
[2021-03-18] MEDS: methylPREDNISolone Sodium Succinate 40 MG/1 ML SDV IVPUSH SCH ×3 (03:35→21:21)
[2021-03-18 06:45] LABS: BLOOD UREA NITROGEN,BUN 33 mg/dL (7.0-18.0); CARBON DIOXIDE,CO2 29.9 mmol/L (21.0-32.0); CHLORIDE,CL 111 mmol/L (98-107); GLUCOSE RANDOM 157 mg/dL (74-106); POTASSIUM,K 3.2 mmol/L (3.5-5.1); SODIUM,NA 147 mmol/L (136-148)
[2021-03-18] MEDS: amLODIPine 5 MG Tab PO SCH (09:05)
[2021-03-18] MEDS: Dorzolamide/Timolol 2%-0.5% Ophth Soln 10 ML Bottle EYERT SCH ×2 (09:07→21:20)
[2021-03-18] MEDS: Fluticasone/Salmeterol 250-50 MCG Inhalation Powder 14/Diskus INH SCH ×2 (09:07→21:20)
[2021-03-18] MEDS: Heparin Sodium 5,000 Units/ML Vial SUBCUT SCH ×2 (09:08→21:21)
[2021-03-18] MEDS: Azithromycin 500 MG in Sodium Chloride 0.9% 250 ML IV SCH (09:11)
[2021-03-18] MEDS ORDERED: Furosemide 40 MG/4 ML VIAL IVPUSH ONE (11:40)
[2021-03-18] MEDS ORDERED: Potassium Chloride 20 MEQ Tab.ER PO ONE (11:40)
[2021-03-18] MEDS: LATANOPROST 0.005% EYEBOTH SCH (21:20)
[2021-03-18] MEDS: atorvaSTATin 10 MG Tab PO SCH (21:21)
[2021-03-18] MEDS: Doxazosin 4 MG Tab PO SCH (21:21)
[2021-03-18] MEDS: Calcium Carbonate 500 MG Tab.Chew PO PRN (22:09)
[2021-03-19] MEDS: Albuterol/Ipratropium 3.0-0.5 MG/3 ML Neb Soln NEB SCH ×6 (02:23→21:58)
[2021-03-19] MEDS: Piperacillin/Tazobactam 3.375 GM in Sodium Chloride 0.9% 50 ML IV SCH (02:23)
[2021-03-19] MEDS: methylPREDNISolone Sodium Succinate 40 MG/1 ML SDV IVPUSH SCH (04:27)
[2021-03-19] MEDS: amLODIPine 5 MG Tab PO SCH (08:22)
[2021-03-19] MEDS: Heparin Sodium 5,000 Units/ML Vial SUBCUT SCH ×2 (08:23→21:57)
[2021-03-19] MEDS: Azithromycin 500 MG in Sodium Chloride 0.9% 250 ML IV SCH (08:23)
[2021-03-19] MEDS: Fluticasone/Salmeterol 250-50 MCG Inhalation Powder 14/Diskus INH SCH ×2 (08:27→21:57)
[2021-03-19] MEDS: Dorzolamide/Timolol 2%-0.5% Ophth Soln 10 ML Bottle EYERT SCH ×2 (08:28→21:59)
[2021-03-19 11:11] LABS: BLOOD UREA NITROGEN,BUN 35 mg/dL (7.0-18.0); CARBON DIOXIDE,CO2 29.8 mmol/L (21.0-32.0); CHLORIDE,CL 108 mmol/L (98-107); GLUCOSE RANDOM 164 mg/dL (74-106); POTASSIUM,K 3.3 mmol/L (3.5-5.1); SODIUM,NA 145 mmol/L (136-148)
[2021-03-19] MEDS ORDERED: Potassium Chloride 20 MEQ Tab.ER PO ONE (11:56)
[2021-03-19] MEDS: atorvaSTATin 10 MG Tab PO SCH (21:58)
[2021-03-19] MEDS: Doxazosin 4 MG Tab PO SCH (21:58)
[2021-03-19] MEDS: LATANOPROST 0.005% EYEBOTH SCH (22:00)
[2021-03-20] MEDS: Albuterol/Ipratropium 3.0-0.5 MG/3 ML Neb Soln NEB SCH ×6 (02:26→22:16)
[2021-03-20 07:48] LABS: BLOOD UREA NITROGEN,BUN 30 mg/dL (7.0-18.0); CARBON DIOXIDE,CO2 28.5 mmol/L (21.0-32.0); CHLORIDE,CL 111 mmol/L (98-107); GLUCOSE RANDOM 91 mg/dL (74-106); POTASSIUM,K 3.5 mmol/L (3.5-5.1); SODIUM,NA 146 mmol/L (136-148)
[2021-03-20] MEDS: Fluticasone/Salmeterol 250-50 MCG Inhalation Powder 14/Diskus INH SCH ×2 (09:27→20:42)
[2021-03-20] MEDS: amLODIPine 5 MG Tab PO SCH (09:29)
[2021-03-20] MEDS: Heparin Sodium 5,000 Units/ML Vial SUBCUT SCH ×2 (09:29→20:44)
[2021-03-20] MEDS: methylPREDNISolone Sodium Succinate 40 MG/1 ML SDV IVPUSH SCH (09:31)
[2021-03-20] MEDS: Azithromycin 500 MG in Sodium Chloride 0.9% 250 ML IV SCH (09:31)
[2021-03-20] MEDS: Dorzolamide/Timolol 2%-0.5% Ophth Soln 10 ML Bottle EYERT SCH ×2 (09:32→20:42)
[2021-03-20] MEDS: LATANOPROST 0.005% EYEBOTH SCH (20:42)
[2021-03-20] MEDS: Doxazosin 4 MG Tab PO SCH (20:44)
[2021-03-20] MEDS: atorvaSTATin 10 MG Tab PO SCH (20:44)
[2021-03-21] MEDS: Albuterol/Ipratropium 3.0-0.5 MG/3 ML Neb Soln NEB SCH ×6 (02:08→21:45)
[2021-03-21] MEDS: Fluticasone/Salmeterol 250-50 MCG Inhalation Powder 14/Diskus INH SCH ×2 (09:34→21:46)
[2021-03-21] MEDS: Heparin Sodium 5,000 Units/ML Vial SUBCUT SCH ×2 (09:36→21:45)
[2021-03-21] MEDS: amLODIPine 5 MG Tab PO SCH (09:40)
[2021-03-21] MEDS: Dorzolamide/Timolol 2%-0.5% Ophth Soln 10 ML Bottle EYERT SCH ×2 (09:41→21:47)
[2021-03-21] MEDS ORDERED: Azithromycin 250 MG Tab PO ONE (10:00)
[2021-03-21] MEDS: Azithromycin 500 MG in Sodium Chloride 0.9% 250 ML IV SCH (11:32)
[2021-03-21] MEDS: methylPREDNISolone Sodium Succinate 40 MG/1 ML SDV IVPUSH SCH (11:32)
[2021-03-21] MEDS: predniSONE 20 MG Tab PO SCH (12:59)
[2021-03-21] MEDS: atorvaSTATin 10 MG Tab PO SCH (21:45)
[2021-03-21] MEDS: Doxazosin 4 MG Tab PO SCH (21:45)
[2021-03-21] MEDS: LATANOPROST 0.005% EYEBOTH SCH (21:47)
[2021-03-22] MEDS: Albuterol/Ipratropium 3.0-0.5 MG/3 ML Neb Soln NEB SCH ×4 (03:54→17:11)
[2021-03-22 07:00] LABS: BLOOD UREA NITROGEN,BUN 32 mg/dL (7.0-18.0); CHLORIDE,CL 109 mmol/L (98-107); GLUCOSE RANDOM 121 mg/dL (74-106); POTASSIUM,K 3.6 mmol/L (3.5-5.1); SODIUM,NA 141 mmol/L (136-148)
[2021-03-22] MEDS ORDERED: predniSONE 20 MG Tab PO SCH (08:00)
[2021-03-22] MEDS: Heparin Sodium 5,000 Units/ML Vial SUBCUT SCH ×2 (08:42→21:00)
[2021-03-22] MEDS: predniSONE 20 MG Tab PO SCH (08:43)
[2021-03-22] MEDS: Fluticasone/Salmeterol 250-50 MCG Inhalation Powder 14/Diskus INH SCH ×2 (08:46→21:00)
[2021-03-22] MEDS: Dorzolamide/Timolol 2%-0.5% Ophth Soln 10 ML Bottle EYERT SCH ×2 (08:46→21:01)
[2021-03-22] MEDS: amLODIPine 5 MG Tab PO SCH (10:07)
[2021-03-22] MEDS: Azithromycin 250 MG Tab PO SCH (10:07)
[2021-03-22] MEDS: atorvaSTATin 10 MG Tab PO SCH (21:01)
[2021-03-22] MEDS: LATANOPROST 0.005% EYEBOTH SCH (21:01)
[2021-03-22] MEDS: Doxazosin 4 MG Tab PO SCH (21:36)
[2021-03-23] MEDS: Albuterol/Ipratropium 3.0-0.5 MG/3 ML Neb Soln NEB SCH ×4 (00:11→18:06)
[2021-03-23] MEDS: Cholecalciferol (Vitamin D3) 25 MCG Tab PO SCH (08:35)
[2021-03-23] MEDS: amLODIPine 5 MG Tab PO SCH (08:35)
[2021-03-23] MEDS: Heparin Sodium 5,000 Units/ML Vial SUBCUT SCH ×2 (08:36→22:02)
[2021-03-23] MEDS: predniSONE 20 MG Tab PO SCH (08:36)
[2021-03-23] MEDS: Fluticasone/Salmeterol 250-50 MCG Inhalation Powder 14/Diskus INH SCH ×2 (08:37→22:02)
[2021-03-23] MEDS: Dorzolamide/Timolol 2%-0.5% Ophth Soln 10 ML Bottle EYERT SCH ×2 (08:38→22:03)
[2021-03-23] MEDS ORDERED: Pantoprazole 40 MG Tab.CR PO SCH (09:06)
[2021-03-23] MEDS: Azithromycin 250 MG Tab PO SCH (10:55)
[2021-03-23] MEDS: Pantoprazole 40 MG Tab.CR PO SCH (10:55)
[2021-03-23] MEDS: atorvaSTATin 10 MG Tab PO SCH (22:02)
[2021-03-23] MEDS: Doxazosin 4 MG Tab PO SCH (22:02)
[2021-03-23] MEDS: LATANOPROST 0.005% EYEBOTH SCH (22:03)
[2021-03-24] MEDS: Albuterol/Ipratropium 3.0-0.5 MG/3 ML Neb Soln NEB SCH ×4 (02:09→18:03)
[2021-03-24] MEDS: Cholecalciferol (Vitamin D3) 25 MCG Tab PO SCH (08:32)
[2021-03-24] MEDS: predniSONE 20 MG Tab PO SCH (08:32)
[2021-03-24] MEDS: Pantoprazole 40 MG Tab.CR PO SCH (08:33)
[2021-03-24] MEDS: amLODIPine 5 MG Tab PO SCH (08:33)
[2021-03-24] MEDS: Dorzolamide/Timolol 2%-0.5% Ophth Soln 10 ML Bottle EYERT SCH ×2 (08:34→20:44)
[2021-03-24] MEDS: Fluticasone/Salmeterol 250-50 MCG Inhalation Powder 14/Diskus INH SCH ×2 (08:35→20:44)
[2021-03-24] MEDS: Heparin Sodium 5,000 Units/ML Vial SUBCUT SCH ×2 (08:38→20:45)
[2021-03-24] MEDS: Azithromycin 250 MG Tab PO SCH (09:37)
[2021-03-24] MEDS: LATANOPROST 0.005% EYEBOTH SCH (20:44)
[2021-03-24] MEDS: atorvaSTATin 10 MG Tab PO SCH (20:45)
[2021-03-24] MEDS: Doxazosin 4 MG Tab PO SCH (20:45)
[2021-03-25] MEDS: Albuterol/Ipratropium 3.0-0.5 MG/3 ML Neb Soln NEB SCH ×4 (01:20→18:23)
[2021-03-25] MEDS: Pantoprazole 40 MG Tab.CR PO SCH (08:41)
[2021-03-25] MEDS: Heparin Sodium 5,000 Units/ML Vial SUBCUT SCH ×2 (08:41→20:47)
[2021-03-25] MEDS: predniSONE 20 MG Tab PO SCH (08:41)
[2021-03-25] MEDS: amLODIPine 5 MG Tab PO SCH (08:42)
[2021-03-25] MEDS: Cholecalciferol (Vitamin D3) 25 MCG Tab PO SCH (08:44)
[2021-03-25] MEDS: Fluticasone/Salmeterol 250-50 MCG Inhalation Powder 14/Diskus INH SCH ×2 (08:46→20:47)
[2021-03-25] MEDS: Dorzolamide/Timolol 2%-0.5% Ophth Soln 10 ML Bottle EYERT SCH ×2 (08:47→20:49)
[2021-03-25] MEDS: Azithromycin 250 MG Tab PO SCH (10:40)
[2021-03-25] MEDS: Doxazosin 4 MG Tab PO SCH (20:47)
[2021-03-25] MEDS: atorvaSTATin 10 MG Tab PO SCH (20:47)
[2021-03-25] MEDS: LATANOPROST 0.005% EYEBOTH SCH (20:48)
[2021-03-26] MEDS: Albuterol/Ipratropium 3.0-0.5 MG/3 ML Neb Soln NEB SCH ×4 (00:27→17:08)
[2021-03-26] MEDS: Pantoprazole 40 MG Tab.CR PO SCH ×2 (06:09→06:33)
[2021-03-26] MEDS: amLODIPine 5 MG Tab PO SCH (08:04)
[2021-03-26] MEDS: Cholecalciferol (Vitamin D3) 25 MCG Tab PO SCH (08:05)
[2021-03-26] MEDS: predniSONE 20 MG Tab PO SCH (08:06)
[2021-03-26] MEDS: Fluticasone/Salmeterol 250-50 MCG Inhalation Powder 14/Diskus INH SCH ×2 (08:06→20:56)
[2021-03-26] MEDS: Heparin Sodium 5,000 Units/ML Vial SUBCUT SCH ×2 (08:06→20:57)
[2021-03-26] MEDS: Dorzolamide/Timolol 2%-0.5% Ophth Soln 10 ML Bottle EYERT SCH ×2 (08:07→20:57)
[2021-03-26] MEDS: Azithromycin 250 MG Tab PO SCH (09:28)
[2021-03-26] MEDS: atorvaSTATin 10 MG Tab PO SCH (20:57)
[2021-03-26] MEDS: LATANOPROST 0.005% EYEBOTH SCH (20:57)
[2021-03-26] MEDS: Doxazosin 4 MG Tab PO SCH (20:58)
[2021-03-27] MEDS: Albuterol/Ipratropium 3.0-0.5 MG/3 ML Neb Soln NEB SCH ×4 (01:16→17:08)
[2021-03-27] MEDS: Pantoprazole 40 MG Tab.CR PO SCH ×2 (06:13→06:34)
[2021-03-27] MEDS: predniSONE 20 MG Tab PO SCH (09:31)
[2021-03-27] MEDS: Fluticasone/Salmeterol 250-50 MCG Inhalation Powder 14/Diskus INH SCH ×2 (09:31→21:04)
[2021-03-27] MEDS: Azithromycin 250 MG Tab PO SCH (09:32)
[2021-03-27] MEDS: amLODIPine 5 MG Tab PO SCH (09:32)
[2021-03-27] MEDS: Heparin Sodium 5,000 Units/ML Vial SUBCUT SCH ×2 (09:32→21:03)
[2021-03-27] MEDS: Cholecalciferol (Vitamin D3) 25 MCG Tab PO SCH (09:33)
[2021-03-27] MEDS: Dorzolamide/Timolol 2%-0.5% Ophth Soln 10 ML Bottle EYERT SCH ×2 (09:34→21:07)
[2021-03-27] MEDS: atorvaSTATin 10 MG Tab PO SCH (21:03)
[2021-03-27] MEDS: LATANOPROST 0.005% EYEBOTH SCH (21:04)
[2021-03-27] MEDS: Doxazosin 4 MG Tab PO SCH (21:05)
[2021-03-28] MEDS: Albuterol/Ipratropium 3.0-0.5 MG/3 ML Neb Soln NEB SCH ×4 (00:45→17:20)
[2021-03-28] MEDS: Pantoprazole 40 MG Tab.CR PO SCH ×2 (06:00→07:41)
[2021-03-28 07:10] LABS: BLOOD UREA NITROGEN,BUN 25 mg/dL (7.0-18.0); CARBON DIOXIDE,CO2 28.9 mmol/L (21.0-32.0); CHLORIDE,CL 107 mmol/L (98-107); GLUCOSE RANDOM 108 mg/dL (74-106); POTASSIUM,K 3.7 mmol/L (3.5-5.1); SODIUM,NA 142 mmol/L (136-148)
[2021-03-28] MEDS: Cholecalciferol (Vitamin D3) 25 MCG Tab PO SCH (08:04)
[2021-03-28] MEDS: predniSONE 20 MG Tab PO SCH (08:04)
[2021-03-28] MEDS: amLODIPine 5 MG Tab PO SCH (08:05)
[2021-03-28] MEDS: Heparin Sodium 5,000 Units/ML Vial SUBCUT SCH ×2 (08:05→20:04)
[2021-03-28] MEDS: Dorzolamide/Timolol 2%-0.5% Ophth Soln 10 ML Bottle EYERT SCH ×2 (08:08→20:03)
[2021-03-28] MEDS: Fluticasone/Salmeterol 250-50 MCG Inhalation Powder 14/Diskus INH SCH ×2 (08:09→20:03)
[2021-03-28] MEDS: Azithromycin 250 MG Tab PO SCH (10:37)
[2021-03-28] MEDS: LATANOPROST 0.005% EYEBOTH SCH (20:03)
[2021-03-28] MEDS: Doxazosin 4 MG Tab PO SCH (20:04)
[2021-03-28] MEDS: atorvaSTATin 10 MG Tab PO SCH (20:04)
[2021-03-29] MEDS: Albuterol/Ipratropium 3.0-0.5 MG/3 ML Neb Soln NEB SCH ×4 (00:45→17:40)
[2021-03-29] MEDS: Pantoprazole 40 MG Tab.CR PO SCH ×2 (06:09→06:35)
[2021-03-29] MEDS: Cholecalciferol (Vitamin D3) 25 MCG Tab PO SCH (08:19)
[2021-03-29] MEDS: amLODIPine 5 MG Tab PO SCH (08:19)
[2021-03-29] MEDS: Heparin Sodium 5,000 Units/ML Vial SUBCUT SCH ×2 (08:19→20:45)
[2021-03-29] MEDS: predniSONE 20 MG Tab PO SCH (08:20)
[2021-03-29] MEDS: Fluticasone/Salmeterol 250-50 MCG Inhalation Powder 14/Diskus INH SCH ×2 (08:20→20:45)
[2021-03-29] MEDS: Dorzolamide/Timolol 2%-0.5% Ophth Soln 10 ML Bottle EYERT SCH ×2 (08:21→20:45)
[2021-03-29] MEDS: Azithromycin 250 MG Tab PO SCH (10:03)
[2021-03-29] MEDS: atorvaSTATin 10 MG Tab PO SCH (20:44)
[2021-03-29] MEDS: Doxazosin 4 MG Tab PO SCH (20:44)
[2021-03-29] MEDS: LATANOPROST 0.005% EYEBOTH SCH (20:45)
[2021-03-30] MEDS: Albuterol/Ipratropium 3.0-0.5 MG/3 ML Neb Soln NEB SCH ×4 (01:55→17:52)
[2021-03-30] MEDS: Pantoprazole 40 MG Tab.CR PO SCH ×2 (06:17→08:46)
[2021-03-30] MEDS: predniSONE 20 MG Tab PO SCH (09:46)
[2021-03-30] MEDS: amLODIPine 5 MG Tab PO SCH (09:46)
[2021-03-30] MEDS: Azithromycin 250 MG Tab PO SCH (09:50)
[2021-03-30] MEDS: Cholecalciferol (Vitamin D3) 25 MCG Tab PO SCH (09:50)
[2021-03-30] MEDS: Heparin Sodium 5,000 Units/ML Vial SUBCUT SCH ×2 (09:52→20:50)
[2021-03-30] MEDS: Dorzolamide/Timolol 2%-0.5% Ophth Soln 10 ML Bottle EYERT SCH ×2 (09:53→20:53)
[2021-03-30] MEDS: Fluticasone/Salmeterol 250-50 MCG Inhalation Powder 14/Diskus INH SCH ×2 (09:53→20:52)
[2021-03-30] MEDS: Doxazosin 4 MG Tab PO SCH (20:50)
[2021-03-30] MEDS: atorvaSTATin 10 MG Tab PO SCH (20:50)
[2021-03-30] MEDS: LATANOPROST 0.005% EYEBOTH SCH (20:52)
[2021-03-31] MEDS: Albuterol/Ipratropium 3.0-0.5 MG/3 ML Neb Soln NEB SCH ×5 (00:27→23:37)
[2021-03-31] MEDS: Pantoprazole 40 MG Tab.CR PO SCH ×2 (06:16→07:32)
[2021-03-31] MEDS: Cholecalciferol (Vitamin D3) 25 MCG Tab PO SCH (08:21)
[2021-03-31] MEDS: predniSONE 20 MG Tab PO SCH (08:21)
[2021-03-31] MEDS: Heparin Sodium 5,000 Units/ML Vial SUBCUT SCH ×2 (08:21→21:33)
[2021-03-31] MEDS: amLODIPine 5 MG Tab PO SCH (08:22)
[2021-03-31] MEDS: Fluticasone/Salmeterol 250-50 MCG Inhalation Powder 14/Diskus INH SCH ×2 (08:26→21:34)
[2021-03-31] MEDS: Dorzolamide/Timolol 2%-0.5% Ophth Soln 10 ML Bottle EYERT SCH ×2 (08:28→21:31)
[2021-03-31] MEDS: Azithromycin 250 MG Tab PO SCH (10:55)
[2021-03-31] MEDS: atorvaSTATin 10 MG Tab PO SCH (21:32)
[2021-03-31] MEDS: Doxazosin 4 MG Tab PO SCH (21:33)
[2021-03-31] MEDS: LATANOPROST 0.005% EYEBOTH SCH (21:33)
[2021-04-01] MEDS: Pantoprazole 40 MG Tab.CR PO SCH (06:29)
[2021-04-01] MEDS: Albuterol/Ipratropium 3.0-0.5 MG/3 ML Neb Soln NEB SCH ×4 (06:29→23:20)
[2021-04-01] MEDS: predniSONE 20 MG Tab PO SCH (09:21)
[2021-04-01] MEDS: Heparin Sodium 5,000 Units/ML Vial SUBCUT SCH ×2 (09:22→20:42)
[2021-04-01] MEDS: Fluticasone/Salmeterol 250-50 MCG Inhalation Powder 14/Diskus INH SCH ×2 (09:22→20:41)
[2021-04-01] MEDS: amLODIPine 5 MG Tab PO SCH (09:22)
[2021-04-01] MEDS: Azithromycin 250 MG Tab PO SCH (09:30)
[2021-04-01] MEDS: Cholecalciferol (Vitamin D3) 25 MCG Tab PO SCH (09:30)
[2021-04-01] MEDS: Dorzolamide/Timolol 2%-0.5% Ophth Soln 10 ML Bottle EYERT SCH ×2 (09:31→20:44)
[2021-04-01] MEDS: Doxazosin 4 MG Tab PO SCH (20:41)
[2021-04-01] MEDS: atorvaSTATin 10 MG Tab PO SCH (20:41)
[2021-04-01] MEDS: LATANOPROST 0.005% EYEBOTH SCH (20:44)
[2021-04-02] MEDS: Pantoprazole 40 MG Tab.CR PO SCH ×2 (06:28→06:30)
[2021-04-02] MEDS: Albuterol/Ipratropium 3.0-0.5 MG/3 ML Neb Soln NEB SCH ×3 (06:28→17:13)
[2021-04-02] MEDS: Cholecalciferol (Vitamin D3) 25 MCG Tab PO SCH (08:37)
[2021-04-02] MEDS: amLODIPine 5 MG Tab PO SCH (08:37)
[2021-04-02] MEDS: predniSONE 20 MG Tab PO SCH (08:37)
[2021-04-02] MEDS: Fluticasone/Salmeterol 250-50 MCG Inhalation Powder 14/Diskus INH SCH ×2 (08:38→21:10)
[2021-04-02] MEDS: Heparin Sodium 5,000 Units/ML Vial SUBCUT SCH ×2 (08:38→21:12)
[2021-04-02] MEDS: Dorzolamide/Timolol 2%-0.5% Ophth Soln 10 ML Bottle EYERT SCH ×2 (08:39→21:10)
[2021-04-02] MEDS: Azithromycin 250 MG Tab PO SCH (10:05)
[2021-04-02] MEDS: Albuterol/Ipratropium 3.0-0.5 MG/3 ML Neb Soln NEB PRN (15:32)
[2021-04-02] MEDS: LATANOPROST 0.005% EYEBOTH SCH (21:11)
[2021-04-02] MEDS: Doxazosin 4 MG Tab PO SCH (21:11)
[2021-04-02] MEDS: atorvaSTATin 10 MG Tab PO SCH (21:11)
[2021-04-03] MEDS: Albuterol/Ipratropium 3.0-0.5 MG/3 ML Neb Soln NEB SCH ×4 (00:08→17:16)
[2021-04-03 06:12] LABS: BLOOD UREA NITROGEN,BUN 22 mg/dL (7.0-18.0); CARBON DIOXIDE,CO2 29.2 mmol/L (21.0-32.0); CHLORIDE,CL 106 mmol/L (98-107); GLUCOSE RANDOM 129 mg/dL (74-106); POTASSIUM,K 3.8 mmol/L (3.5-5.1); SODIUM,NA 140 mmol/L (136-148)
[2021-04-03] MEDS: Pantoprazole 40 MG Tab.CR PO SCH (06:31)
[2021-04-03] MEDS: predniSONE 20 MG Tab PO SCH (08:25)
[2021-04-03] MEDS: Cholecalciferol (Vitamin D3) 25 MCG Tab PO SCH (08:26)
[2021-04-03] MEDS: Heparin Sodium 5,000 Units/ML Vial SUBCUT SCH ×2 (08:27→20:14)
[2021-04-03] MEDS: Albuterol/Ipratropium 3.0-0.5 MG/3 ML Neb Soln NEB PRN (08:27)
[2021-04-03] MEDS: Fluticasone/Salmeterol 250-50 MCG Inhalation Powder 14/Diskus INH SCH ×2 (08:28→20:17)
[2021-04-03] MEDS: Dorzolamide/Timolol 2%-0.5% Ophth Soln 10 ML Bottle EYERT SCH ×2 (08:28→20:17)
[2021-04-03] MEDS: amLODIPine 5 MG Tab PO SCH (08:35)
[2021-04-03] MEDS: Azithromycin 250 MG Tab PO SCH (09:31)
[2021-04-03] MEDS: Doxazosin 4 MG Tab PO SCH (20:14)
[2021-04-03] MEDS: atorvaSTATin 10 MG Tab PO SCH (20:14)
[2021-04-03] MEDS: LATANOPROST 0.005% EYEBOTH SCH (20:17)
[2021-04-04] MEDS: Albuterol/Ipratropium 3.0-0.5 MG/3 ML Neb Soln NEB SCH ×4 (00:55→17:08)
[2021-04-04] MEDS: Pantoprazole 40 MG Tab.CR PO SCH ×2 (06:10→07:15)
[2021-04-04] MEDS: amLODIPine 5 MG Tab PO SCH (08:08)
[2021-04-04] MEDS: Cholecalciferol (Vitamin D3) 25 MCG Tab PO SCH (08:08)
[2021-04-04] MEDS: predniSONE 20 MG Tab PO SCH (08:08)
[2021-04-04] MEDS: Dorzolamide/Timolol 2%-0.5% Ophth Soln 10 ML Bottle EYERT SCH ×2 (08:09→20:57)
[2021-04-04] MEDS: Heparin Sodium 5,000 Units/ML Vial SUBCUT SCH ×2 (08:09→20:58)
[2021-04-04] MEDS: Fluticasone/Salmeterol 250-50 MCG Inhalation Powder 14/Diskus INH SCH ×2 (08:10→20:57)
[2021-04-04] MEDS: Azithromycin 250 MG Tab PO SCH (09:45)
[2021-04-04] MEDS: LATANOPROST 0.005% EYEBOTH SCH (20:57)
[2021-04-04] MEDS: atorvaSTATin 10 MG Tab PO SCH (20:58)
[2021-04-04] MEDS: Doxazosin 4 MG Tab PO SCH (20:58)
[2021-04-05] MEDS: Albuterol/Ipratropium 3.0-0.5 MG/3 ML Neb Soln NEB SCH ×4 (00:35→17:19)
[2021-04-05] MEDS: Pantoprazole 40 MG Tab.CR PO SCH (06:49)
[2021-04-05] MEDS: Cholecalciferol (Vitamin D3) 25 MCG Tab PO SCH (08:23)
[2021-04-05] MEDS: predniSONE 20 MG Tab PO SCH (08:23)
[2021-04-05] MEDS: amLODIPine 5 MG Tab PO SCH (08:23)
[2021-04-05] MEDS: Dorzolamide/Timolol 2%-0.5% Ophth Soln 10 ML Bottle EYERT SCH ×2 (08:24→20:44)
[2021-04-05] MEDS: Fluticasone/Salmeterol 250-50 MCG Inhalation Powder 14/Diskus INH SCH ×2 (08:24→20:42)
[2021-04-05] MEDS: Heparin Sodium 5,000 Units/ML Vial SUBCUT SCH ×2 (08:24→20:41)
[2021-04-05] MEDS: Azithromycin 250 MG Tab PO SCH (10:09)
[2021-04-05] MEDS: atorvaSTATin 10 MG Tab PO SCH (20:41)
[2021-04-05] MEDS: Doxazosin 4 MG Tab PO SCH (20:41)
[2021-04-05] MEDS: LATANOPROST 0.005% EYEBOTH SCH (20:42)
[2021-04-06] MEDS: Albuterol/Ipratropium 3.0-0.5 MG/3 ML Neb Soln NEB SCH ×4 (00:33→17:46)
[2021-04-06] MEDS: Pantoprazole 40 MG Tab.CR PO SCH ×2 (06:10→07:51)
[2021-04-06] MEDS: Heparin Sodium 5,000 Units/ML Vial SUBCUT SCH ×2 (08:26→22:07)
[2021-04-06] MEDS: amLODIPine 5 MG Tab PO SCH (08:26)
[2021-04-06] MEDS: Dorzolamide/Timolol 2%-0.5% Ophth Soln 10 ML Bottle EYERT SCH ×2 (08:27→22:06)
[2021-04-06] MEDS: predniSONE 20 MG Tab PO SCH (08:27)
[2021-04-06] MEDS: Cholecalciferol (Vitamin D3) 25 MCG Tab PO SCH (08:27)
[2021-04-06] MEDS: Fluticasone/Salmeterol 250-50 MCG Inhalation Powder 14/Diskus INH SCH ×2 (08:28→22:06)
[2021-04-06] MEDS: Azithromycin 250 MG Tab PO SCH (10:12)
[2021-04-06] MEDS: atorvaSTATin 10 MG Tab PO SCH (22:06)
[2021-04-06] MEDS: LATANOPROST 0.005% EYEBOTH SCH (22:06)
[2021-04-06] MEDS: Doxazosin 4 MG Tab PO SCH (22:07)
[2021-04-07] MEDS: Albuterol/Ipratropium 3.0-0.5 MG/3 ML Neb Soln NEB SCH ×4 (00:56→18:25)
[2021-04-07] MEDS: Pantoprazole 40 MG Tab.CR PO SCH ×2 (06:05→07:55)
[2021-04-07] MEDS: Cholecalciferol (Vitamin D3) 25 MCG Tab PO SCH (08:35)
[2021-04-07] MEDS: predniSONE 20 MG Tab PO SCH (08:36)
[2021-04-07] MEDS: amLODIPine 5 MG Tab PO SCH (08:37)
[2021-04-07] MEDS: Heparin Sodium 5,000 Units/ML Vial SUBCUT SCH ×2 (08:38→21:11)
[2021-04-07] MEDS: Fluticasone/Salmeterol 250-50 MCG Inhalation Powder 14/Diskus INH SCH ×2 (08:39→21:13)
[2021-04-07] MEDS: Dorzolamide/Timolol 2%-0.5% Ophth Soln 10 ML Bottle EYERT SCH ×2 (08:39→21:15)
[2021-04-07] MEDS: Azithromycin 250 MG Tab PO SCH (10:09)
[2021-04-07] MEDS: Doxazosin 4 MG Tab PO SCH (21:12)
[2021-04-07] MEDS: atorvaSTATin 10 MG Tab PO SCH (21:12)
[2021-04-07] MEDS: LATANOPROST 0.005% EYEBOTH SCH (21:14)
[2021-04-08] MEDS: Albuterol/Ipratropium 3.0-0.5 MG/3 ML Neb Soln NEB SCH ×4 (00:30→18:21)
[2021-04-08] MEDS: Pantoprazole 40 MG Tab.CR PO SCH (06:31)
[2021-04-08] MEDS: predniSONE 20 MG Tab PO SCH (08:45)
[2021-04-08] MEDS: amLODIPine 5 MG Tab PO SCH (08:45)
[2021-04-08] MEDS: Dorzolamide/Timolol 2%-0.5% Ophth Soln 10 ML Bottle EYERT SCH ×2 (08:46→21:02)
[2021-04-08] MEDS: Heparin Sodium 5,000 Units/ML Vial SUBCUT SCH ×2 (08:47→21:04)
[2021-04-08] MEDS: Cholecalciferol (Vitamin D3) 25 MCG Tab PO SCH (08:48)
[2021-04-08] MEDS: Fluticasone/Salmeterol 250-50 MCG Inhalation Powder 14/Diskus INH SCH ×2 (09:54→21:02)
[2021-04-08] MEDS: Azithromycin 250 MG Tab PO SCH (09:54)
[2021-04-08] MEDS: atorvaSTATin 10 MG Tab PO SCH (21:03)
[2021-04-08] MEDS: LATANOPROST 0.005% EYEBOTH SCH (21:03)
[2021-04-08] MEDS: Doxazosin 4 MG Tab PO SCH (21:04)
[2021-04-09] MEDS: Albuterol/Ipratropium 3.0-0.5 MG/3 ML Neb Soln NEB SCH ×4 (00:58→17:05)
[2021-04-09] MEDS: Pantoprazole 40 MG Tab.CR PO SCH (06:53)
[2021-04-09] MEDS: Heparin Sodium 5,000 Units/ML Vial SUBCUT SCH ×2 (08:43→21:44)
[2021-04-09] MEDS: predniSONE 20 MG Tab PO SCH (08:43)
[2021-04-09] MEDS: amLODIPine 5 MG Tab PO SCH (08:43)
[2021-04-09] MEDS: Cholecalciferol (Vitamin D3) 25 MCG Tab PO SCH (08:44)
[2021-04-09] MEDS: Fluticasone/Salmeterol 250-50 MCG Inhalation Powder 14/Diskus INH SCH (08:45)
[2021-04-09] MEDS: Dorzolamide/Timolol 2%-0.5% Ophth Soln 10 ML Bottle EYERT SCH (08:46)
[2021-04-09] MEDS: Azithromycin 250 MG Tab PO SCH (09:00)
[2021-04-09] MEDS ORDERED: Docusate Sodium 100 MG Cap PO PRN (20:00)
[2021-04-09] MEDS: atorvaSTATin 10 MG Tab PO SCH (21:43)
[2021-04-09] MEDS: Doxazosin 4 MG Tab PO SCH (21:44)
[2021-04-09] MEDS: LATANOPROST 0.005% EYEBOTH SCH (21:45)
[2021-04-10] MEDS: Albuterol/Ipratropium 3.0-0.5 MG/3 ML Neb Soln NEB SCH ×4 (00:45→17:06)
[2021-04-10] MEDS: Pantoprazole 40 MG Tab.CR PO SCH ×2 (06:27→08:46)
[2021-04-10] MEDS ORDERED: Acetaminophen 325 MG Tab PO PRN (07:49)
[2021-04-10] MEDS: Heparin Sodium 5,000 Units/ML Vial SUBCUT SCH ×2 (08:22→20:05)
[2021-04-10] MEDS: Cholecalciferol (Vitamin D3) 25 MCG Tab PO SCH (08:23)
[2021-04-10] MEDS: amLODIPine 5 MG Tab PO SCH (08:24)
[2021-04-10] MEDS: predniSONE 20 MG Tab PO SCH (08:26)
[2021-04-10] MEDS: DORZOLAMIDE EYERT SCH ×3 (08:46→20:03)
[2021-04-10] MEDS: TIMOLOL EYERT SCH ×3 (08:46→20:03)
[2021-04-10] MEDS: Dorzolamide/Timolol 2%-0.5% Ophth Soln 10 ML Bottle EYERT SCH ×2 (08:48→20:01)
[2021-04-10] MEDS: Azithromycin 250 MG Tab PO SCH (11:18)
[2021-04-10] MEDS: Fluticasone/Salmeterol 250-50 MCG Inhalation Powder 14/Diskus INH SCH ×2 (14:30→20:01)
[2021-04-10] MEDS: atorvaSTATin 10 MG Tab PO SCH (20:02)
[2021-04-10] MEDS: Doxazosin 4 MG Tab PO SCH (20:03)
[2021-04-10] MEDS: LATANOPROST 0.005% EYEBOTH SCH (20:04)
[2021-04-10] MEDS ORDERED: LATANOPROST 0.005% EYEBOTH SCH (21:00)
[2021-04-11] MEDS: Albuterol/Ipratropium 3.0-0.5 MG/3 ML Neb Soln NEB SCH ×5 (00:12→23:32)
[2021-04-11] MEDS: Pantoprazole 40 MG Tab.CR PO SCH ×2 (06:21→06:52)
[2021-04-11] MEDS: amLODIPine 5 MG Tab PO SCH (08:09)
[2021-04-11] MEDS: predniSONE 20 MG Tab PO SCH (08:09)
[2021-04-11] MEDS: Fluticasone/Salmeterol 250-50 MCG Inhalation Powder 14/Diskus INH SCH ×2 (08:10→20:30)
[2021-04-11] MEDS: Heparin Sodium 5,000 Units/ML Vial SUBCUT SCH ×2 (08:10→20:31)
[2021-04-11] MEDS: DORZOLAMIDE EYERT SCH ×2 (08:10→20:32)
[2021-04-11] MEDS: TIMOLOL EYERT SCH ×2 (08:10→20:32)
[2021-04-11] MEDS: Dorzolamide/Timolol 2%-0.5% Ophth Soln 10 ML Bottle EYERT SCH ×2 (08:11→20:32)
[2021-04-11] MEDS: Cholecalciferol (Vitamin D3) 25 MCG Tab PO SCH (08:15)
[2021-04-11] MEDS: Azithromycin 250 MG Tab PO SCH (10:15)
[2021-04-11] MEDS: Doxazosin 4 MG Tab PO SCH (20:30)
[2021-04-11] MEDS: atorvaSTATin 10 MG Tab PO SCH (20:30)
[2021-04-11] MEDS: LATANOPROST 0.005% EYEBOTH SCH (20:33)
[2021-04-12] MEDS: Albuterol/Ipratropium 3.0-0.5 MG/3 ML Neb Soln NEB SCH ×2 (05:53→12:52)
[2021-04-12] MEDS: Pantoprazole 40 MG Tab.CR PO SCH ×2 (06:25→08:24)
[2021-04-12] MEDS: Heparin Sodium 5,000 Units/ML Vial SUBCUT SCH (08:22)
[2021-04-12] MEDS: Cholecalciferol (Vitamin D3) 25 MCG Tab PO SCH (08:22)
[2021-04-12] MEDS: predniSONE 20 MG Tab PO SCH (08:23)
[2021-04-12] MEDS: amLODIPine 5 MG Tab PO SCH (08:48)
[2021-04-12] MEDS: Fluticasone/Salmeterol 250-50 MCG Inhalation Powder 14/Diskus INH SCH ×3 (08:56→20:40)
[2021-04-12] MEDS: Dorzolamide/Timolol 2%-0.5% Ophth Soln 10 ML Bottle EYERT SCH ×2 (08:56→20:39)
[2021-04-12] MEDS: DORZOLAMIDE EYERT SCH ×2 (08:59→20:40)
[2021-04-12] MEDS: TIMOLOL EYERT SCH ×2 (08:59→20:40)
[2021-04-12] MEDS: Azithromycin 250 MG Tab PO SCH (09:05)
[2021-04-12] MEDS: Albuterol/Ipratropium 4 GM Inhalation Spray INH SCH ×2 (17:10→23:54)
[2021-04-12] MEDS: atorvaSTATin 10 MG Tab PO SCH (20:38)
[2021-04-12] MEDS: Doxazosin 4 MG Tab PO SCH (20:38)
[2021-04-12] MEDS: LATANOPROST 0.005% EYEBOTH SCH (20:40)
[2021-04-13] MEDS: Albuterol/Ipratropium 4 GM Inhalation Spray INH SCH ×4 (06:23→23:56)
[2021-04-13] MEDS: Pantoprazole 40 MG Tab.CR PO SCH ×2 (06:23→08:17)
[2021-04-13] MEDS: Cholecalciferol (Vitamin D3) 25 MCG Tab PO SCH (08:17)
[2021-04-13] MEDS: predniSONE 20 MG Tab PO SCH (08:17)
[2021-04-13] MEDS: amLODIPine 5 MG Tab PO SCH (08:17)
[2021-04-13] MEDS: Fluticasone/Salmeterol 250-50 MCG Inhalation Powder 14/Diskus INH SCH ×2 (08:18→20:22)
[2021-04-13] MEDS: Dorzolamide/Timolol 2%-0.5% Ophth Soln 10 ML Bottle EYERT SCH ×2 (08:18→20:22)
[2021-04-13] MEDS: TIMOLOL EYERT SCH ×2 (08:23→20:41)
[2021-04-13] MEDS: DORZOLAMIDE EYERT SCH ×2 (08:23→20:41)
[2021-04-13] MEDS: Azithromycin 250 MG Tab PO SCH (10:16)
[2021-04-13] MEDS ORDERED: Albuterol/Ipratropium 3.0-0.5 MG/3 ML Neb Soln NEB PRN (12:00)
[2021-04-13] MEDS: Doxazosin 4 MG Tab PO SCH (20:20)
[2021-04-13] MEDS: atorvaSTATin 10 MG Tab PO SCH (20:21)
[2021-04-13] MEDS: LATANOPROST 0.005% EYEBOTH SCH (20:23)
[2021-04-14] MEDS: Pantoprazole 40 MG Tab.CR PO SCH (06:39)
[2021-04-14] MEDS: Albuterol/Ipratropium 4 GM Inhalation Spray INH SCH (06:39)
[2021-04-14] MEDS: predniSONE 20 MG Tab PO SCH (08:19)
[2021-04-14] MEDS: amLODIPine 5 MG Tab PO SCH (08:19)
[2021-04-14] MEDS: Cholecalciferol (Vitamin D3) 25 MCG Tab PO SCH (08:20)
[2021-04-14] MEDS: Fluticasone/Salmeterol 250-50 MCG Inhalation Powder 14/Diskus INH SCH (08:22)
[2021-04-14] MEDS: Dorzolamide/Timolol 2%-0.5% Ophth Soln 10 ML Bottle EYERT SCH (08:22)
[2021-04-14] MEDS: DORZOLAMIDE EYERT SCH (08:23)
[2021-04-14] MEDS: TIMOLOL EYERT SCH (08:23)
[2021-04-14] MEDS: Azithromycin 250 MG Tab PO SCH (10:09)
== END 2021-04-14 11:50 | DRG 193 ==
LOC: MW.ED 03:27 → MW.MS 08:54
PROVIDERS: ADMIT Student in an Organized Health Care Education/Training Program; ATTEND Student in an Organized Health Care Education/Training Program
PROC: 5A09357 Assistance with Respiratory Ventilation, Less than 24 Consecutive Hours, Continuous Positive Airway Pressure (ICD-10-PCS; principal; 2021-03-10)
DX: J44.9 Chronic obstructive pulmonary disease, unspecified (principal); E78.00 Pure hypercholesterolemia, unspecified; I10 Essential (primary) hypertension; J18.9 Pneumonia, unspecified organism; J96.01 Acute respiratory failure with hypoxia; I50.23 Acute on chronic systolic (congestive) heart failure; Z87.01 Personal history of pneumonia (recurrent); J43.2 Centrilobular emphysema; E78.5 Hyperlipidemia, unspecified; Z66 Do not resuscitate; I11.0 Hypertensive heart disease with heart failure; I25.10 Atherosclerotic heart disease of native coronary artery without angina pectoris; Z20.822 Contact with and (suspected) exposure to COVID-19; Z87.891 Personal history of nicotine dependence; Z79.899 Other long term (current) drug therapy; Z79.52 Long term (current) use of systemic steroids; Z99.81 Dependence on supplemental oxygen
CPT/HCPCS: 0240U; 36415; 36600; 71045; 71275; 80048; 80053; 80202; 82306; 82803; 83605; 83735; 83880; 84100; 84484; 85025; 85610; 85730; 86140; 87040; 93005; 94640; 94660; 94664; 94667; 94668; 96365; 96375; 97110; 97116; 97163; 97530; 99285; 93010; 99221; 99231; 99232; 99239; 99291; A9270-GY; J0456; J0692; J1644; J1650; J1940; J1956; J2543; J2920; J2930; J3370; J7030; J7050; J7620-GY; Q9967; U0002

== ENCOUNTER 2023-07-25 08:59 | Inpatient (IN) | payer MEDICARE, MEDICAID ==
[2023-07-25] MEDS: Albuterol 0.083% 2.5 MG/3 ML Neb Soln NEB ONE (09:20)
[2023-07-25] MEDS: Albuterol/Ipratropium 3.0-0.5 MG/3 ML Neb Soln NEB ONE (09:20)
[2023-07-25] MEDS: Ondansetron 4 MG/2 ML SDV IVPUSH ONE (09:21)
[2023-07-25] MEDS: Sodium Chloride 0.9% 10 ML Syringe FLUSH PRN (09:21)
[2023-07-25] MEDS: Magnesium Sulfate/Water 2 GM in Premix Bag 1 BAG IV ONE (09:21)
[2023-07-25] MEDS: Sodium Chloride 0.9% 2.5 ML Syringe FLUSH PRN (09:21)
[2023-07-25] MEDS: methylPREDNISolone Sodium Succinate 125 MG/2 ML SDV IVPUSH ONE (09:21)
[2023-07-25 09:23] LABS: HEMATOCRIT 37.7 % (42.0-52.0); HEMOGLOBIN 12.4 g/dL (14.0-18.0); MEAN CORPUSCULAR HEMOGLOBIN 30.7 pg (28.0-32.0); MEAN CORPUSCULAR HGB CONC 32.9 g/dL (32.0-36.0); MEAN CORPUSCULAR VOLUME 93.3 fL (83.0-99.0); MEAN PLATELET VOLUME 9.9 fL (9.4-12.4); PLATELET COUNT,PLT 299 K/uL (150-400); RED BLOOD CELL COUNT 4.04 M/uL (4.52-5.90); WHITE BLOOD CELL COUNT,WBC 15.14 K/uL (3.9-11.3)
[2023-07-25 09:24] LABS: BASE EXCESS VENOUS 4.4 (-2.0-3.0); PH,VENOUS 7.4 (7.31-7.41)
[2023-07-25 09:35] LABS: BASOPHILS ABSOLUTE MAN 0.15 K/uL (0.00-0.20); BASOPHILS PERCENT MAN 1 % (0-1); EOSINOPHILS ABSOLUTE MAN 0.45 K/uL (0.00-0.45); EOSINOPHILS PERCENT MAN 3 % (0-6); LYMPHOCYTES ABSOLUTE MAN 0.45 K/uL (1.00-4.80); LYMPHOCYTES PERCENT MAN 3 % (24-44); MONOCYTES ABSOLUTE MAN 0.91 K/uL (0.00-0.80); MONOCYTES PERCENT MAN 6 % (0-8); SEG NEUTROPHILS ABSOLUTE MAN 13.17 K/uL (1.80-7.70); SEG NEUTROPHILS PERCENT MAN 87 % (41-71)
[2023-07-25 09:36] LABS: INR 1.09 (0.86-1.11)
[2023-07-25 09:54] LABS: A/G RATIO 0.6 (0.9-1.6); ALBUMIN 2.8 g/dL (3.4-5.0); BILIRUBIN TOTAL 0.4 mg/dL (0.2-1.0); CALCIUM 8.8 mg/dL (8.5-10.1); CARBON DIOXIDE,CO2 30.3 mmol/L (21.0-32.0); CREATININE 1.1 mg/dL (0.8-1.3); POTASSIUM,K 3.9 mmol/L (3.5-5.1); PROTEIN TOTAL,TP 7.3 g/dL (6.4-8.2)
[2023-07-25] MEDS: Albuterol 0.083% 2.5 MG/3 ML Neb Soln ONE (10:02)
[2023-07-25] MEDS: cefTRIAXone 2 GM in Sodium Chloride 0.9% 50 ML IV ONE (10:02)
[2023-07-25 10:31] LABS: LACTIC ACID 1.2 mmol/L (0.4-2.0)
[2023-07-25] MEDS ORDERED: Acetaminophen 325 MG Tab PO PRN (11:36)
[2023-07-25] MEDS ORDERED: Melatonin 3 MG Tab PO PRN (11:36)
[2023-07-25] MEDS ORDERED: Polyethylene Glycol 3350 Powder 17 GM Packet PO PRN (11:36)
[2023-07-25] MEDS ORDERED: Ondansetron 4 MG/2 ML SDV IVPUSH PRN (11:36)
[2023-07-25] MEDS ORDERED: Azithromycin 500 MG in Sodium Chloride 0.9% 250 ML IV SCH (11:45)
[2023-07-25] MEDS: Pantoprazole 40 MG in Sodium Chloride 0.9% 10 ML IVPUSH SCH (12:45)
[2023-07-25] MEDS: Albuterol/Ipratropium 3.0-0.5 MG/3 ML Neb Soln NEB SCH (12:50)
[2023-07-25] MEDS: Enoxaparin 40 MG/0.4 ML Syringe SUBCUT SCH (12:50)
[2023-07-25] MEDS: atorvaSTATin 10 MG Tab PO SCH (20:02)
[2023-07-25] MEDS: TIMOLOL EYERT SCH (21:50)
[2023-07-25] MEDS: DORZOLAMIDE HCL EYERT SCH (21:50)
[2023-07-25] MEDS: Latanoprost 0.005% Ophth Soln 2.5 ML Bottle EYEBOTH SCH (21:51)
[2023-07-25] MEDS ORDERED: Albuterol/Ipratropium 3.0-0.5 MG/3 ML Neb Soln NEB PRN (23:11)
[2023-07-26 06:16] LABS: BASOPHILS ABSOLUTE AUTO 0.02 K/uL (0.00-0.20); BASOPHILS PERCENT AUTO 0.1 % (0.0-1.0); HEMATOCRIT 36.6 % (42.0-52.0); IMMATURE GRAN ABSOLUTE AUTO 0.12 K/uL (0.00-0.05); IMMATURE GRAN PERCENT AUTO 0.9 % (0.0-0.4); LYMPHOCYTES ABSOLUTE AUTO 0.31 K/uL (1.00-4.80); LYMPHOCYTES PERCENT AUTO 2.2 % (24.0-44.0); MEAN CORPUSCULAR HEMOGLOBIN 30.9 pg (28.0-32.0); MEAN CORPUSCULAR HGB CONC 32.8 g/dL (32.0-36.0); MEAN CORPUSCULAR VOLUME 94.3 fL (83.0-99.0); MEAN PLATELET VOLUME 10.2 fL (9.4-12.4); MONOCYTES ABSOLUTE AUTO 0.61 K/uL (0.00-0.80); MONOCYTES PERCENT AUTO 4.3 % (0.0-8.0); NEUTROPHILS ABSOLUTE AUTO 13.04 K/uL (1.80-7.70); NEUTROPHILS PERCENT AUTO 92.5 % (41.0-71.0); PLATELET COUNT,PLT 286 K/uL (150-400); RED BLOOD CELL COUNT 3.88 M/uL (4.52-5.90)
[2023-07-26 06:46] LABS: CALCIUM 8.5 mg/dL (8.5-10.1); EST CRCL DRUG DOSING (CG) 48.76 mL/min; MAGNESIUM 2.6 mg/dL (1.8-2.4); POTASSIUM,K 5.1 mmol/L (3.5-5.1)
[2023-07-26] MEDS: methylPREDNISolone Sodium Succinate 40 MG/1 ML SDV IVPUSH SCH (08:14)
[2023-07-26] MEDS: cefTRIAXone 2 GM in Sodium Chloride 0.9% 50 ML IV SCH (08:15)
[2023-07-26] MEDS: ROFLUMILAST 500 MCG PO SCH (08:29)
[2023-07-26] MEDS: amLODIPine 5 MG Tab PO SCH (08:29)
[2023-07-26] MEDS: UMECLIDIN INH SCH (10:55)
[2023-07-26] MEDS: FLUTICASONE INH SCH (10:55)
[2023-07-26] MEDS: VILANTER INH SCH (10:55)
[2023-07-27 06:31] LABS: BASOPHILS ABSOLUTE AUTO 0.02 K/uL (0.00-0.20); BASOPHILS PERCENT AUTO 0.1 % (0.0-1.0); HEMATOCRIT 34.1 % (42.0-52.0); HEMOGLOBIN 11.5 g/dL (14.0-18.0); IMMATURE GRAN ABSOLUTE AUTO 0.17 K/uL (0.00-0.05); LYMPHOCYTES ABSOLUTE AUTO 0.35 K/uL (1.00-4.80); MEAN CORPUSCULAR HEMOGLOBIN 31.1 pg (28.0-32.0); MEAN CORPUSCULAR HGB CONC 33.7 g/dL (32.0-36.0); MEAN CORPUSCULAR VOLUME 92.2 fL (83.0-99.0); MEAN PLATELET VOLUME 10.3 fL (9.4-12.4); MONOCYTES ABSOLUTE AUTO 0.59 K/uL (0.00-0.80); MONOCYTES PERCENT AUTO 3.4 % (0.0-8.0); NEUTROPHILS ABSOLUTE AUTO 16.13 K/uL (1.80-7.70); NEUTROPHILS PERCENT AUTO 93.5 % (41.0-71.0); PLATELET COUNT,PLT 314 K/uL (150-400); WHITE BLOOD CELL COUNT,WBC 17.26 K/uL (3.9-11.3)
[2023-07-27 07:00] LABS: CALCIUM 8.4 mg/dL (8.5-10.1); CARBON DIOXIDE,CO2 30.8 mmol/L (21.0-32.0); EST CRCL DRUG DOSING (CG) 48.76 mL/min; MAGNESIUM 2.4 mg/dL (1.8-2.4); POTASSIUM,K 4.8 mmol/L (3.5-5.1)
[2023-07-28 06:03] LABS: BASOPHILS ABSOLUTE AUTO 0.02 K/uL (0.00-0.20); BASOPHILS PERCENT AUTO 0.2 % (0.0-1.0); HEMATOCRIT 33.9 % (42.0-52.0); HEMOGLOBIN 11.1 g/dL (14.0-18.0); IMMATURE GRAN ABSOLUTE AUTO 0.16 K/uL (0.00-0.05); IMMATURE GRAN PERCENT AUTO 1.2 % (0.0-0.4); LYMPHOCYTES ABSOLUTE AUTO 0.27 K/uL (1.00-4.80); LYMPHOCYTES PERCENT AUTO 2.1 % (24.0-44.0); MEAN CORPUSCULAR HEMOGLOBIN 30.3 pg (28.0-32.0); MEAN CORPUSCULAR HGB CONC 32.7 g/dL (32.0-36.0); MEAN CORPUSCULAR VOLUME 92.6 fL (83.0-99.0); MEAN PLATELET VOLUME 10.4 fL (9.4-12.4); MONOCYTES ABSOLUTE AUTO 0.62 K/uL (0.00-0.80); MONOCYTES PERCENT AUTO 4.8 % (0.0-8.0); NEUTROPHILS PERCENT AUTO 91.7 % (41.0-71.0); PLATELET COUNT,PLT 306 K/uL (150-400); RED BLOOD CELL COUNT 3.66 M/uL (4.52-5.90); WHITE BLOOD CELL COUNT,WBC 12.97 K/uL (3.9-11.3)
[2023-07-28 06:31] LABS: CALCIUM 8.3 mg/dL (8.5-10.1); CARBON DIOXIDE,CO2 30.1 mmol/L (21.0-32.0); CREATININE 0.9 mg/dL (0.8-1.3); EST CRCL DRUG DOSING (CG) 54.18 mL/min; MAGNESIUM 2.3 mg/dL (1.8-2.4); POTASSIUM,K 4.2 mmol/L (3.5-5.1)
[2023-07-29 05:46] LABS: BASOPHILS ABSOLUTE AUTO 0.02 K/uL (0.00-0.20); BASOPHILS PERCENT AUTO 0.2 % (0.0-1.0); HEMATOCRIT 33.8 % (42.0-52.0); HEMOGLOBIN 11.3 g/dL (14.0-18.0); IMMATURE GRAN ABSOLUTE AUTO 0.31 K/uL (0.00-0.05); IMMATURE GRAN PERCENT AUTO 2.7 % (0.0-0.4); LYMPHOCYTES ABSOLUTE AUTO 0.26 K/uL (1.00-4.80); LYMPHOCYTES PERCENT AUTO 2.2 % (24.0-44.0); MEAN CORPUSCULAR HEMOGLOBIN 30.8 pg (28.0-32.0); MEAN CORPUSCULAR HGB CONC 33.4 g/dL (32.0-36.0); MEAN CORPUSCULAR VOLUME 92.1 fL (83.0-99.0); MEAN PLATELET VOLUME 10.3 fL (9.4-12.4); MONOCYTES ABSOLUTE AUTO 0.42 K/uL (0.00-0.80); MONOCYTES PERCENT AUTO 3.6 % (0.0-8.0); NEUTROPHILS ABSOLUTE AUTO 10.68 K/uL (1.80-7.70); NEUTROPHILS PERCENT AUTO 91.3 % (41.0-71.0); PLATELET COUNT,PLT 304 K/uL (150-400); RED BLOOD CELL COUNT 3.67 M/uL (4.52-5.90); WHITE BLOOD CELL COUNT,WBC 11.69 K/uL (3.9-11.3)
[2023-07-29 06:03] LABS: CALCIUM 8.2 mg/dL (8.5-10.1); CARBON DIOXIDE,CO2 29.4 mmol/L (21.0-32.0); CREATININE 0.8 mg/dL (0.8-1.3); EST CRCL DRUG DOSING (CG) 60.95 mL/min; POTASSIUM,K 4.5 mmol/L (3.5-5.1)
== END 2023-07-29 12:20 | disposition home or self-care (01) | DRG 189 ==
LOC: MW.ED 08:59 → MW.MS 11:30
PROVIDERS: ADMIT Family Medicine; ATTEND Family Medicine
PROC: 5A0945A Assistance with Respiratory Ventilation, 24-96 Consecutive Hours, High Flow/Velocity Cannula (ICD-10-PCS; principal; 2023-07-26)
DX: J96.01 Acute respiratory failure with hypoxia (principal); I10 Essential (primary) hypertension; J44.1 Chronic obstructive pulmonary disease with (acute) exacerbation; I50.9 Heart failure, unspecified; Z75.8 Other problems related to medical facilities and other health care; Z66 Do not resuscitate; E78.00 Pure hypercholesterolemia, unspecified; I11.0 Hypertensive heart disease with heart failure; I25.10 Atherosclerotic heart disease of native coronary artery without angina pectoris; J43.2 Centrilobular emphysema; Z99.81 Dependence on supplemental oxygen; Z79.899 Other long term (current) drug therapy; Z87.81 Personal history of (healed) traumatic fracture; Z98.890 Other specified postprocedural states; Z98.49 Cataract extraction status, unspecified eye
CPT/HCPCS: 36415; 71045; 71045-26; 80048; 80053; 82803; 83605; 83735; 83880; 84484; 85025; 85610; 87040; 87899; 93005; 93010; 94640; 96365; 96367; 96375; 99222; 99231; 99232; 99238; 99285; 99285-25; A9270-GY; C9113; J0696; J1650; J2405; J2919; J3475; J3490; J7620-GY; U0002

== ENCOUNTER 2023-08-13 13:45 | Inpatient (IN) | payer MEDICARE, MEDICAID ==
[2023-08-13] MEDS: Sodium Chloride 0.9% 2.5 ML Syringe FLUSH PRN (14:12)
[2023-08-13] MEDS: Sodium Chloride 0.9% 10 ML Syringe FLUSH PRN (14:12)
[2023-08-13] MEDS: Magnesium Sulfate/Water 2 GM in Premix Bag 1 BAG IV ONE (14:12)
[2023-08-13] MEDS: Albuterol/Ipratropium 3.0-0.5 MG/3 ML Neb Soln NEB ONE (14:12)
[2023-08-13] MEDS: Albuterol 0.083% 2.5 MG/3 ML Neb Soln NEB ONE (14:12)
[2023-08-13 14:24] LABS: BASE EXCESS VENOUS 1.3 (-2.0-3.0); BICARBONATE,VENOUS 28 mEQ/mL (22-28); PCO2 VENOUS 51 mmHG (41-51); PH,VENOUS 7.35 (7.31-7.41)
[2023-08-13 14:25] LABS: BASOPHILS ABSOLUTE AUTO 0.04 K/uL (0.00-0.20); BASOPHILS PERCENT AUTO 0.4 % (0.0-1.0); EOSINOPHILS ABSOLUTE AUTO 0.09 K/uL (0.00-0.45); EOSINOPHILS PERCENT AUTO 0.8 % (0.0-6.0); HEMATOCRIT 37.4 % (42.0-52.0); IMMATURE GRAN PERCENT AUTO 0.9 % (0.0-0.4); LYMPHOCYTES ABSOLUTE AUTO 0.33 K/uL (1.00-4.80); MEAN CORPUSCULAR HEMOGLOBIN 30.3 pg (28.0-32.0); MEAN CORPUSCULAR HGB CONC 32.1 g/dL (32.0-36.0); MEAN CORPUSCULAR VOLUME 94.4 fL (83.0-99.0); MEAN PLATELET VOLUME 10.1 fL (9.4-12.4); MONOCYTES PERCENT AUTO 4.6 % (0.0-8.0); NEUTROPHILS ABSOLUTE AUTO 9.83 K/uL (1.80-7.70); NEUTROPHILS PERCENT AUTO 90.3 % (41.0-71.0); PLATELET COUNT,PLT 213 K/uL (150-400); RED BLOOD CELL COUNT 3.96 M/uL (4.52-5.90); WHITE BLOOD CELL COUNT,WBC 10.89 K/uL (3.9-11.3)
[2023-08-13 14:46] LABS: PO2 VENOUS < 30 mmHG (35-45)
[2023-08-13 14:53] LABS: A/G RATIO 0.7 (0.9-1.6); ALBUMIN 2.9 g/dL (3.4-5.0); BILIRUBIN TOTAL 0.7 mg/dL (0.2-1.0); CALCIUM 8.8 mg/dL (8.5-10.1); CARBON DIOXIDE,CO2 27.7 mmol/L (21.0-32.0); CREATININE 0.9 mg/dL (0.8-1.3); EST CRCL DRUG DOSING (CG) 56.94 mL/min; MAGNESIUM 1.9 mg/dL (1.8-2.4); POTASSIUM,K 4.2 mmol/L (3.5-5.1); PROTEIN TOTAL,TP 7.1 g/dL (6.4-8.2)
[2023-08-13] MEDS ORDERED: Ondansetron 4 MG Tab.DIS PO PRN (18:35)
[2023-08-13] MEDS ORDERED: Polyethylene Glycol 3350 Powder 17 GM Packet PO PRN (18:35)
[2023-08-13] MEDS ORDERED: Sennosides/Docusate Sodium 50-8.6 MG Tab PO PRN (18:35)
[2023-08-13] MEDS ORDERED: Acetaminophen 325 MG Tab PO PRN (18:35)
[2023-08-13] MEDS: cefTRIAXone 1 GM in Sodium Chloride 0.9% 50 ML IV SCH (18:59)
[2023-08-13] MEDS: Azithromycin 500 MG in Sodium Chloride 0.9% 250 ML IV SCH (19:46)
[2023-08-13] MEDS: Enoxaparin 40 MG/0.4 ML Syringe SUBCUT SCH (19:55)
[2023-08-13] MEDS: Albuterol/Ipratropium 3.0-0.5 MG/3 ML Neb Soln NEB PRN (20:08)
[2023-08-14 05:36] LABS: BASOPHILS ABSOLUTE AUTO 0.01 K/uL (0.00-0.20); BASOPHILS PERCENT AUTO 0.1 % (0.0-1.0); HEMATOCRIT 32.4 % (42.0-52.0); HEMOGLOBIN 10.5 g/dL (14.0-18.0); IMMATURE GRAN ABSOLUTE AUTO 0.08 K/uL (0.00-0.05); IMMATURE GRAN PERCENT AUTO 0.8 % (0.0-0.4); LYMPHOCYTES ABSOLUTE AUTO 0.17 K/uL (1.00-4.80); LYMPHOCYTES PERCENT AUTO 1.7 % (24.0-44.0); MEAN CORPUSCULAR HEMOGLOBIN 29.7 pg (28.0-32.0); MEAN CORPUSCULAR HGB CONC 32.4 g/dL (32.0-36.0); MEAN CORPUSCULAR VOLUME 91.8 fL (83.0-99.0); MEAN PLATELET VOLUME 10.3 fL (9.4-12.4); MONOCYTES ABSOLUTE AUTO 0.31 K/uL (0.00-0.80); MONOCYTES PERCENT AUTO 3.1 % (0.0-8.0); NEUTROPHILS ABSOLUTE AUTO 9.46 K/uL (1.80-7.70); NEUTROPHILS PERCENT AUTO 94.3 % (41.0-71.0); PLATELET COUNT,PLT 194 K/uL (150-400); RED BLOOD CELL COUNT 3.53 M/uL (4.52-5.90); WHITE BLOOD CELL COUNT,WBC 10.03 K/uL (3.9-11.3)
[2023-08-14 05:55] LABS: A/G RATIO 0.7 (0.9-1.6); ALBUMIN 2.6 g/dL (3.4-5.0); BILIRUBIN TOTAL 0.2 mg/dL (0.2-1.0); CALCIUM 8.3 mg/dL (8.5-10.1); CARBON DIOXIDE,CO2 28.9 mmol/L (21.0-32.0); CREATININE 1.1 mg/dL (0.8-1.3); EST CRCL DRUG DOSING (CG) 42.42 mL/min; POTASSIUM,K 3.8 mmol/L (3.5-5.1); PROTEIN TOTAL,TP 6.3 g/dL (6.4-8.2)
[2023-08-14] MEDS: Pantoprazole 40 MG Tab.CR PO SCH (07:13)
[2023-08-14] MEDS: amLODIPine 5 MG Tab PO SCH (08:43)
[2023-08-14] MEDS: Empagliflozin 25 MG Tab PO SCH (08:43)
[2023-08-14] MEDS: methylPREDNISolone Sodium Succinate 40 MG/1 ML SDV IVPUSH SCH (08:44)
[2023-08-14] MEDS: Spironolactone 25 MG Tab PO SCH (08:46)
[2023-08-14] MEDS: Albuterol/Ipratropium 3.0-0.5 MG/3 ML Neb Soln NEB SCH (12:32)
[2023-08-15 05:46] LABS: BASOPHILS ABSOLUTE AUTO 0.01 K/uL (0.00-0.20); BASOPHILS PERCENT AUTO 0.1 % (0.0-1.0); HEMATOCRIT 30.7 % (42.0-52.0); HEMOGLOBIN 9.9 g/dL (14.0-18.0); IMMATURE GRAN ABSOLUTE AUTO 0.12 K/uL (0.00-0.05); IMMATURE GRAN PERCENT AUTO 0.9 % (0.0-0.4); LYMPHOCYTES ABSOLUTE AUTO 0.14 K/uL (1.00-4.80); MEAN CORPUSCULAR HEMOGLOBIN 30.1 pg (28.0-32.0); MEAN CORPUSCULAR HGB CONC 32.2 g/dL (32.0-36.0); MEAN CORPUSCULAR VOLUME 93.3 fL (83.0-99.0); MEAN PLATELET VOLUME 10.7 fL (9.4-12.4); MONOCYTES ABSOLUTE AUTO 0.25 K/uL (0.00-0.80); MONOCYTES PERCENT AUTO 1.8 % (0.0-8.0); NEUTROPHILS ABSOLUTE AUTO 13.26 K/uL (1.80-7.70); NEUTROPHILS PERCENT AUTO 96.2 % (41.0-71.0); PLATELET COUNT,PLT 200 K/uL (150-400); RED BLOOD CELL COUNT 3.29 M/uL (4.52-5.90); WHITE BLOOD CELL COUNT,WBC 13.78 K/uL (3.9-11.3)
[2023-08-15 06:12] LABS: A/G RATIO 0.7 (0.9-1.6); ALBUMIN 2.4 g/dL (3.4-5.0); BILIRUBIN TOTAL 0.3 mg/dL (0.2-1.0); CALCIUM 8.4 mg/dL (8.5-10.1); CARBON DIOXIDE,CO2 30.4 mmol/L (21.0-32.0); CREATININE 0.8 mg/dL (0.8-1.3); EST CRCL DRUG DOSING (CG) 60.42 mL/min; POTASSIUM,K 4.1 mmol/L (3.5-5.1); PROTEIN TOTAL,TP 5.8 g/dL (6.4-8.2)
== END 2023-08-15 15:00 | disposition home or self-care (01) | DRG 189 ==
LOC: MW.ED 13:45 → MW.MS 16:58 → UNDOADMIN 16:58 → UNDODISIN 08-15 15:00
PROVIDERS: ADMIT Obstetrics & Gynecology; ATTEND Internal Medicine
DX: J96.21 Acute and chronic respiratory failure with hypoxia (principal); J44.1 Chronic obstructive pulmonary disease with (acute) exacerbation; J84.9 Interstitial pulmonary disease, unspecified; Z66 Do not resuscitate; I50.9 Heart failure, unspecified; E78.00 Pure hypercholesterolemia, unspecified; I11.0 Hypertensive heart disease with heart failure; K21.9 Gastro-esophageal reflux disease without esophagitis; I08.2 Rheumatic disorders of both aortic and tricuspid valves; Z99.81 Dependence on supplemental oxygen; Z79.899 Other long term (current) drug therapy; Z87.01 Personal history of pneumonia (recurrent); Z98.49 Cataract extraction status, unspecified eye; Z87.81 Personal history of (healed) traumatic fracture; Z98.890 Other specified postprocedural states
CPT/HCPCS: 36415; 71045; 80053; 82803; 83735; 84484; 85025; 93005; 94640; 96365; 96375; 99285; J1100; J3475; J3490; 83880; 93010; 93306; 97161-GP; 99283; A9270-GY; J0456; J0696; J1650; J2919; J7050; J7620-GY